=== PATIENT | female | born 1965 | race Caucasian/White ===

== ENCOUNTER → 2017-04-08 | Outpatient (CLI) | payer BC ==
[~2017-04-08] MED LIST: ANAS1TAB19 PO; CHOL1000 PO; LEVO112T4 PO; ONDA8TAB6 PO; calcium PO
[2017-04-08 10:39] VITALS: BP 115/74; PULSE 60; TEMP 36.7; O2SAT 100
--- NOTE | 2017-04-08 12:50 | Radiation Oncology Follow-Up ---
Radiation Oncology Follow-Up Date of Visit Apr 08, 2017. Reason For Visit One-month follow-up and cancer survivorship care plan Radiation Completion Date 03/11/17 Diagnosis (1) Cancer of central portion of right female breast Status: Acute Onset Date: 06/08/2016 Histology Subtype: invasive mammary Stage: ll (B) Permanent Comment: Self detected right breast mass Status post ultrasound-guided biopsy 06/08/2016 Invasive mammary carcinoma lobular features, axillary biopsy positive for carcinoma Estrogen receptor positive, progesterone receptor positive, HER-2/precious negative Clinical stage cT3 cN3M0 Neoadjuvant systemic chemotherapy completed 10/26/2016 Status post right modified radical mastectomy with axillary dissection and left prophylactic mastectomy 11/25/2016 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 She received 6240 cGy. Conventional treatment given to the chest wall, supraclavicular area and axilla. Last Edited By: Charo Patiño on Mar 22, 2017 07:56 History of Present Illness Ms. Cowan is without a family history of breast cancer. The patient discovered a mass in the right breast above the nipple which she first noticed towards the end of April. She was seen by her primary care physician and underwent bilateral diagnostic mammograms on 05/27/2016. This study identified asymmetry in the right breast in the retroareolar area and some asymmetry in the left breast. The asymmetry in the left breast was stable compared to prior studies in 2013. On ultrasound the patient was noted to have 3 masses in the right breast. The first mass corresponded to the palpable abnormality and measured 2.7 x 1.3 x 3.2 cm. This was located at the 12 o'clock position 2 cm the nipple. A retroareolar nodule was noted measuring 0.7 x 1.3 x 0.6 cm and a second hike hypoechoic nodule measuring 0.6 x 0.2 x 0.7 cm at the 11 o'clock position 6 cm from the nipple. In the right axilla and abnormal and enlarged lymph node was noted measuring 2.4 x 1.9 x 2.9 cm. Recommended biopsy of the 2 abnormal areas in the right breast and lymph node was made. On 06/08/2016 the patient underwent biopsies of the 2 abnormal areas in the breast and the lymph node with placement of a clip. The biopsy from the right breast retroareolar mass revealed an invasive mammary carcinoma with lobular features, [place] grade 2 of 3 with suspicion of angiolymphatic invasion. The biopsy of the right breast at the 12 o'clock position 2 cm the nipple revealed an invasive mammary carcinoma of the special type, with lobular features and Rajani grade 3 of 3. There was evidence of angioedema lymphatic invasion present. The biopsy of the right axillary lymph node revealed metastatic carcinoma involving the entire lymph node. Estrogen receptors were strongly positive, progesterone receptors were strongly positive and HER-2/precious oncogene expression was negative and confirmed negative by FISH analysis. Clinical stage was cT2 cN1a, Mx stage IIB. Patient was seen by her medical oncologist Dr. Bruce who ordered a staging PET/CT scan on 06/22/2016. This showed punctate calcifications in the right breast with multiple enlarged right axillary lymph nodes. The largest measured 1.9 cm. There was also an enlarged right retropectoral lymph node measuring 1.4 cm. There was a questionable abnormality in the right lung base/hepatic dome of uncertain significance. Patient therefore underwent CT scans of the chest abdomen and pelvis. This revealed known cancer of the right breast and axillary lymph nodes as well as a suspicious level III lymph node. These showed no evidence of metastatic disease. On 07/08/2016 patient underwent bilateral breast MRIs. This showed a 6.5 cm carcinoma the right breast which appeared to be contiguous rather than 2 separate areas as well as initially diagnosed on ultrasound. The exam again showed abnormal appearing lymph nodes in the right axilla including a level III lymph node that was suspicious for malignancy. The internal mammary nodes were felt to be within normal limits and the left breast and axilla were unremarkable. Dr. Bruce recommended consideration of neoadjuvant systemic chemotherapy. The patient agreed. This consisted of 4 cycles of ddAC followed by 4 cycles of ddTaxol. She completed systemic chemotherapy on 10/26/2016. She underwent a CT scan of the chest on for a persistent cough. This showed no evidence of metastatic disease. She stated that she tolerated the chemotherapy well. She had an obvious clinical response. Patient underwent a restaging procedure with a PET/CT scan on 11/01/2016. This showed the FDG avid uptake abnormalities that were seen in the right breast on the prior PET/CT scan resolved. The previously seen enlarged right axillary and right subpectoral lymph nodes also return to normal in size with interval resolution of the previously seen FDG hypermetabolism. On 11/03/2016 patient underwent bilateral breast MRIs with without contrast. This showed interval regression of the previously noted suspicious anterior masslike area in the upper outer aspect of the right breast consistent with response to therapy. There was also interval regression of the previously noted right axillary adenopathy with the upper normal size right axillary lymph node remaining without significant increased metabolic activity. No new areas of adenopathy were appreciated. The left breast and axilla were unremarkable. A discussion of possible breast reconstruction was had with the patient. She declined and was therefore scheduled to proceed with bilateral mastectomies along with surgical removal of the ovaries and fallopian tubes. One ovary contained evidence of a high-grade serous carcinoma present in a 1 cm cyst. Only one ovary was involved and histologically this tissue was different from that of the primary breast carcinoma. The left mastectomy breast tissue was unremarkable with no evidence of in situ or invasive carcinoma. The right breast mastectomy tissue revealed multifocal invasive carcinoma measuring 3.0 cm and 1.1 cm. The margins were uninvolved by invasive carcinoma. The distance from the closest margin was 4.5 cm from the deep margin. A total of 10 lymph nodes were excised and evaluated. One lymph node had a macro metastasis measuring 1.2 cm without extranodal extension. The remainder of the nodes were negative. There was no lymphovascular invasion identified. The final AJCC pathologic staging was therefore ypT2 ypN1a , ER positive, ID positive and HER-2/precious negative. Patient has noted a small seroma in the lateral portion of the mastectomy incision. She has had 2 episodes of fluid removed. The first time 10 mL of fluid was removed and the second time 8 mL of fluid was removed. The patient is scheduled to see Dr. Bone for a hysterectomy and azucena evaluation following the diagnosis of the high-grade serous carcinoma of the ovary. The question of additional therapy including possible chemotherapy will be made following pathologic evaluation of the additional tissue removed. We were asked to see the patient to review with her the role of adjuvant radiation. She completed her radiation therapy 03/11/2017. She received 6240 cGy. Conventional treatment was given to the chest wall, supraclavicular area and axilla Interim History She's been doing well over the past month. She did have skin irritation at the end of treatment. This is steadily improved. She continues to have some dark discoloration of the skin. She denies any discomfort of the chest wall. She has no masses or tenderness no axillary adenopathy. She is not experiencing any swelling of her arm. She is being followed by medical oncology and completing chemotherapy for the high-grade serous carcinoma of the ovary. She has had her first cycle. The next cycle will be April 18. She did have flulike symptoms. She had fever or chills. It is very likely that these were due to the flow and not the chemotherapy. Her was also ill. She is on Arimidex. She denies side effects. She is not having any problems with hot flashes. Allergies Coded Allergies: No Known Allergies (Verified Allergy, Unknown, 04/26/02) Uncoded Allergies: N (Allergy, Unknown, 04/26/02) NFA (Allergy, Unknown, 04/26/02) NKDA (Allergy, Unknown, 04/26/02) NO (Allergy, Unknown, 04/26/02) UNKNOWN (Allergy, Unknown, 04/26/02) Home Medications Scheduled Anastrozole (Arimidex), 1 TAB PO DAILY Cholecalciferol (Vitamin D3), 1 TAB PO DAILY Levothyroxine Sodium (Levothyroxine Sodium), 1 TAB PO DAILY [calcium], 1,200 MG PO DAILY Scheduled PRN Ondansetron Hcl (Zofran), 8 MG PO Q6 PRN for Nausea Review of Systems Gastrointestinal: Symptoms: WNL GI Comments: Nausea assoc. w/chemo;has antiemetics to use; Oral: Symptoms: No Problems Respiratory: Symptoms: WNL Urinary: Symptoms: WNL Skin: Symptoms: Dry Desquamation Other Skin Symptoms: Hyperpigmentation dry desq over right chest- almost resolved; Breast: Right Upper Arm Measurement: 31.8 Right Mid Arm Measurement: 26.3 Right Wrist Measurement: 17.0 Left Upper Arm Measurement: 30.0 Left Mid Arm Measurement: 25.8 Left Wrist Measurement: 16.8 Arm Dominence: Right Physical Exam Vital Signs Date Time Temp Pulse Resp B/P (MAP) Pulse Ox O2 Delivery O2 Flow Rate FiO2 04/08/17 10:39 36.7 60 24 115/74 100 Fatigue: None General Appearance: no apparent distress Eyes: normal inspection, EOMI ENT: normal ENT inspection, hearing grossly normal Neck: no adenopathy, thyroid normal Respiratory/Chest: lungs clear, no respiratory distress, no accessory muscle use Breast: Breast examination reveals status post bilateral mastectomies. On the right there is resolving hyperpigmentation. There are no masses or tenderness and no axillary adenopathy. On the left there are no masses or tenderness and no axillary adenopathy. Cardiovascular: regular rate, rhythm, no gallop, no murmur Abdomen: non tender, soft Extremities: no pedal edema Neurologic/Psychiatric: no motor/sensory deficits, alert, normal mood/affect Skin: warm/dry Pain Management Patient Reports Pain: No Pain Management Plan She denies pain and therefore requires no pain management. Laboratory Laboratory Results: not applicable Pathology Pathology Results: not applicable Imaging Imaging Studies: not applicable Assessment & Plan Plan: Continue regular follow-up with medical oncology, gynecologic oncology, her breast surgeon, and her primary care physician. She'll continue her chemotherapy. We did discuss that is hopeful that she'll not have side effects with her second cycle and that the symptoms she had were related to flow. Today we completed a cancer survivorship care plan. A copy the document was given to the patient. She was given a survivorship booklet. She continues on her Arimidex. We asked her to return to our office in 6 months. She may call if she has any questions or concerns in the interim. Recheck scanning per oncology. Total Time In Follow-Up I spent 20 minutes speaking to the patient and performing examination. I spent 20 minutes reviewing information, preparing the survivorship document, and completing this note. Copy To Ariana Green M.D.; La Bruce M.D.; Sha Bone M.D.; Piero Pak PA-C Problem Qualifiers (1) Cancer of central portion of right female breast: Estrogen receptor status: positive Qualified Codes: C50.111 - Malignant neoplasm of central portion of right female breast; Z17.0 - Estrogen receptor positive status [ER+]
== END | disposition home or self-care (01) ==
LOC: C.ONC 10:37
PROVIDERS: ATTEND Physician Assistant Medical
DX: Z08 Encounter for follow-up examination after completed treatment for malignant neoplasm (principal); Z92.3 Personal history of irradiation; Z85.3 Personal history of malignant neoplasm of breast

== ENCOUNTER → 2017-10-06 | Outpatient (CLI) | payer BC ==
[~2017-10-06] MED LIST changes: -ANAS1TAB19 PO; +ANAS1TAB59 PO; +FMR25 PO; +ONDA-170 PO; -ONDA8TAB6 PO
[2017-10-06 14:11] VITALS: BP 112/69; PULSE 70; TEMP 36.4; O2SAT 99
--- NOTE | 2017-10-06 15:39 | Radiation Oncology Follow-Up ---
Radiation Oncology Follow-Up Date of Visit Oct 06, 2017. Reason For Visit Six-month follow-up Radiation Completion Date 04/08/17 Diagnosis (1) Cancer of central portion of right female breast Status: Resolved Onset Date: 06/08/2016 Histology Subtype: Invasive mammary Stage: ll (B) Permanent Comment: Self detected right breast mass Status post ultrasound-guided biopsy 06/08/2016 Invasive mammary carcinoma lobular features, axillary biopsy positive for carcinoma Estrogen receptor positive, progesterone receptor positive, HER-2/precious negative Clinical stage cT3 cN3M0 Neoadjuvant systemic chemotherapy completed 10/26/2016 Status post right modified radical mastectomy with axillary dissection and left prophylactic mastectomy 11/25/2016 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 She received 6240 cGy. Conventional treatment given to the chest wall, supraclavicular area and axilla. Last Edited By: Charo Patiño on Mar 22, 2017 07:56 History of Present Illness Ms. Cowan is without a family history of breast cancer. The patient discovered a mass in the right breast above the nipple which she first noticed towards the end of April. She was seen by her primary care physician and underwent bilateral diagnostic mammograms on 05/27/2016. This study identified asymmetry in the right breast in the retroareolar area and some asymmetry in the left breast. The asymmetry in the left breast was stable compared to prior studies in 2013. On ultrasound the patient was noted to have 3 masses in the right breast. The first mass corresponded to the palpable abnormality and measured 2.7 x 1.3 x 3.2 cm. This was located at the 12 o'clock position 2 cm the nipple. A retroareolar nodule was noted measuring 0.7 x 1.3 x 0.6 cm and a second hike hypoechoic nodule measuring 0.6 x 0.2 x 0.7 cm at the 11 o'clock position 6 cm from the nipple. In the right axilla and abnormal and enlarged lymph node was noted measuring 2.4 x 1.9 x 2.9 cm. Recommended biopsy of the 2 abnormal areas in the right breast and lymph node was made. On 06/08/2016 the patient underwent biopsies of the 2 abnormal areas in the breast and the lymph node with placement of a clip. The biopsy from the right breast retroareolar mass revealed an invasive mammary carcinoma with lobular features, [place] grade 2 of 3 with suspicion of angiolymphatic invasion. The biopsy of the right breast at the 12 o'clock position 2 cm the nipple revealed an invasive mammary carcinoma of the special type, with lobular features and Rajani grade 3 of 3. There was evidence of angioedema lymphatic invasion present. The biopsy of the right axillary lymph node revealed metastatic carcinoma involving the entire lymph node. Estrogen receptors were strongly positive, progesterone receptors were strongly positive and HER-2/precious oncogene expression was negative and confirmed negative by FISH analysis. Clinical stage was cT2 cN1a, Mx stage IIB. Patient was seen by her medical oncologist Dr. Bruce who ordered a staging PET/CT scan on 06/22/2016. This showed punctate calcifications in the right breast with multiple enlarged right axillary lymph nodes. The largest measured 1.9 cm. There was also an enlarged right retropectoral lymph node measuring 1.4 cm. There was a questionable abnormality in the right lung base/hepatic dome of uncertain significance. Patient therefore underwent CT scans of the chest abdomen and pelvis. This revealed known cancer of the right breast and axillary lymph nodes as well as a suspicious level III lymph node. These showed no evidence of metastatic disease. On 07/08/2016 patient underwent bilateral breast MRIs. This showed a 6.5 cm carcinoma the right breast which appeared to be contiguous rather than 2 separate areas as well as initially diagnosed on ultrasound. The exam again showed abnormal appearing lymph nodes in the right axilla including a level III lymph node that was suspicious for malignancy. The internal mammary nodes were felt to be within normal limits and the left breast and axilla were unremarkable. Dr. Bruce recommended consideration of neoadjuvant systemic chemotherapy. The patient agreed. This consisted of 4 cycles of ddAC followed by 4 cycles of ddTaxol. She completed systemic chemotherapy on 10/26/2016. She underwent a CT scan of the chest on for a persistent cough. This showed no evidence of metastatic disease. She stated that she tolerated the chemotherapy well. She had an obvious clinical response. Patient underwent a restaging procedure with a PET/CT scan on 11/01/2016. This showed the FDG avid uptake abnormalities that were seen in the right breast on the prior PET/CT scan resolved. The previously seen enlarged right axillary and right subpectoral lymph nodes also return to normal in size with interval resolution of the previously seen FDG hypermetabolism. On 11/03/2016 patient underwent bilateral breast MRIs with without contrast. This showed interval regression of the previously noted suspicious anterior masslike area in the upper outer aspect of the right breast consistent with response to therapy. There was also interval regression of the previously noted right axillary adenopathy with the upper normal size right axillary lymph node remaining without significant increased metabolic activity. No new areas of adenopathy were appreciated. The left breast and axilla were unremarkable. A discussion of possible breast reconstruction was had with the patient. She declined and was therefore scheduled to proceed with bilateral mastectomies along with surgical removal of the ovaries and fallopian tubes. One ovary contained evidence of a high-grade serous carcinoma present in a 1 cm cyst. Only one ovary was involved and histologically this tissue was different from that of the primary breast carcinoma. The left mastectomy breast tissue was unremarkable with no evidence of in situ or invasive carcinoma. The right breast mastectomy tissue revealed multifocal invasive carcinoma measuring 3.0 cm and 1.1 cm. The margins were uninvolved by invasive carcinoma. The distance from the closest margin was 4.5 cm from the deep margin. A total of 10 lymph nodes were excised and evaluated. One lymph node had a macro metastasis measuring 1.2 cm without extranodal extension. The remainder of the nodes were negative. There was no lymphovascular invasion identified. The final AJCC pathologic staging was therefore ypT2 ypN1a , ER positive, CT positive and HER-2/precious negative. Patient has noted a small seroma in the lateral portion of the mastectomy incision. She has had 2 episodes of fluid removed. The first time 10 mL of fluid was removed and the second time 8 mL of fluid was removed. The patient is scheduled to see Dr. Bone for a hysterectomy and azucena evaluation following the diagnosis of the high-grade serous carcinoma of the ovary. The question of additional therapy including possible chemotherapy will be made following pathologic evaluation of the additional tissue removed. We were asked to see the patient to review with her the role of adjuvant radiation. She completed her radiation therapy 03/11/2017. She received 6240 cGy. Conventional treatment was given to the chest wall, supraclavicular area and axilla. Interim History She has been doing well over the past 6 months. She is noticed no changes to the chest wall. There have been no masses or tenderness and no change of the axilla. She has had no swelling of her arm. She was referred to a genetic counselor and underwent genetic testing. She stated that she was found to be BRCA positive. 1 of her daughters and 1 of her sisters have been tested and were found to be positive. She still has a sister and 1 daughter who are waiting for the results of their studies. She was able to have her port removed in July. Allergies Coded Allergies: No Known Allergies (Verified Allergy, Unknown, 04/26/02) Uncoded Allergies: N (Allergy, Unknown, 04/26/02) NFA (Allergy, Unknown, 04/26/02) NKDA (Allergy, Unknown, 04/26/02) NO (Allergy, Unknown, 04/26/02) UNKNOWN (Allergy, Unknown, 04/26/02) Home Medications Scheduled Cholecalciferol (Vitamin D3), 1 TAB PO DAILY Letrozole (Femara), 1 TAB PO DAILY Levothyroxine Sodium (Levothyroxine Sodium), 1 TAB PO DAILY [calcium], 1,200 MG PO DAILY Review of Systems Gastrointestinal: Symptoms: WNL Oral: Symptoms: No Problems Respiratory: Symptoms: WNL Urinary: Symptoms: WNL Skin: Symptoms: No Problems Breast: Right Upper Arm Measurement: 30.0 Right Mid Arm Measurement: 25.5 Right Wrist Measurement: 17.0 Left Upper Arm Measurement: 30.5 Left Mid Arm Measurement: 25.0 Left Wrist Measurement: 17.0 Arm Dominence: Right Physical Exam Vital Signs Date Time Temp Pulse Resp B/P (MAP) Pulse Ox O2 Delivery O2 Flow Rate FiO2 10/06/17 14:11 36.4 70 18 112/69 99 Fatigue: None General Appearance: no apparent distress Eyes: normal inspection, EOMI ENT: normal ENT inspection, hearing grossly normal Neck: no adenopathy, thyroid normal Respiratory/Chest: lungs clear, no respiratory distress, no accessory muscle use Breast: Examination of the bilateral chest pierce reveal postmastectomy. There are no masses or tenderness and no axillary adenopathy. There is mild hyperpigmentation. Using the Cable score cosmesis she has a fair outcome. Cardiovascular: regular rate, rhythm, no gallop, no murmur Extremities: no pedal edema Neurologic/Psychiatric: no motor/sensory deficits, alert, normal mood/affect Skin: warm/dry Pain Management Patient Reports Pain: No Pain Location: None Patient Preferred Pain Scale: 0 - 10 Initial Pain Intensity: 0.0 Pain Management Plan She denies pain therefore requires no pain management. Laboratory Laboratory Results: not applicable Pathology Pathology Results: not applicable Imaging Imaging Studies: not applicable Assessment & Plan Plan: Continue regular follow-up with medical oncology. She will be seeing Dr. Bruce October 17. I reviewed with her that it will be Dr. Bruce's decision in regards to further scanning and laboratory studies. She will continue follow- up with the breast surgeon and her primary care provider. She was encouraged to continue follow-up also with Dr. Bone. We discussed prevention of lymphedema. I reviewed with her avoidance of prolonged heavy work i.e. raking of leaves and shoveling snow. We also discussed prevention when traveling. Some patients do have a sleeve made to wear when they are traveling long distance. She recently returned from [place] she had no difficulty. She stated that she would not be planning on going on any long distance traveling. She was not interested at this time referral to the lymphedema clinic. We discussed the outcome of her genetic testing. She is most concerned about her daughter who has not yet had mammography. I have asked her to review with a genetic counselor and perhaps recommendation could be sent to the primary care physician that she would have sooner mammography due to the outcome of her testing. We asked her to return to our office in 1 year. She may call if she has any questions or concerns in the interim. Total Time In Follow-Up I spent 20 minutes speaking to the patient in performing examination. I spent 15 minutes reviewing information and completing this note. Copy To Ariana Green M.D.; La Bruce M.D.; [place] Marie M.D.; Sha Bone M.D. Problem Qualifiers (1) Cancer of central portion of right female breast: Estrogen receptor status: positive Qualified Codes: C50.111 - Malignant neoplasm of central portion of right female breast; Z17.0 - Estrogen receptor positive status [ER+]
== END | disposition home or self-care (01) ==
LOC: C.ONC 13:56
PROVIDERS: ATTEND Physician Assistant Medical
DX: Z08 Encounter for follow-up examination after completed treatment for malignant neoplasm (principal); Z92.3 Personal history of irradiation; Z85.3 Personal history of malignant neoplasm of breast

== ENCOUNTER 2021-06-30 08:03 | Inpatient (IN) ==
[2021-06-30] MEDS ORDERED: ACETAMINOPHEN 500 MG TAB PO STA (08:22)
[2021-06-30] MEDS ORDERED: CEFEPIME 2,000 MG/20 ML VIAL IV STA (08:22)
[2021-06-30] MEDS ORDERED: SODIUM CHLORIDE 0.9% 1000ML 1,000 ML IV SCH (08:30)
[2021-06-30] MEDS ORDERED: SODIUM CHLORIDE 0.9% 250 ML IV PRN ×2 (08:37→20:52)
--- NOTE | 2021-06-30 08:48 | Emergency Department Note ---
Impression & Plan Sepsis, Elevated troponin, Pneumonia, Anemia, Neutropenia ED Provider Note NAME: JET MORAES AGE: 56 SEX: F : 1965 ARRIVES VIA: Walk-In INFORMANT: [Patient] ED PROVIDER(S): [Festus Wood MD] CHIEF COMPLAINT: Fever, chest pain HISTORY OF PRESENT ILLNESS: The patient is a 56-year-old female who presents to the ER with some chest discomfort that has been sharp in nature. The pain has been present for 9 hours. Her arms feel achy. She had a low-grade fever and some nausea with an increased cough. No urinary complaints, no vomiting no diarrhea. 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 Her last chemotherapy was a month ago. The [facility] for a red blood cell transfusion as her hemoglobin was around 6. The packed red blood cells were not given. Of note, on the laboratory testing done a few days ago, the patient was quite n eutropenic. The patient has not had any sick contacts. She is not vaccinated for COVID-19 or influenza. REVIEW OF SYSTEMS: See HPI for pertinent positives and negatives. A total of ten systems were reviewed and were otherwise negative. PMHx/PSHx: See Below SOCIAL HISTORY: See Below. PHYSICAL EXAM: GENERAL: Patient is in no acute distress. HEENT: No acute trauma, normocephalic atraumatic, mucous membranes moist, no nasal congestion, no scleral icterus. NECK: No stridor, no adenopathy, no meningismus, trachea is midline. LUNGS: Crackles at both bases, mostly on the left. No wheezing, no respiratory distress. HEART: Mildly tachycardic, regular rhythm, no obvious murmur. ABDOMEN: Soft, nontender, bowel sounds positive, no hernias, no peritonitis. EXTREMITIES: No cyanosis or edema, full range of motion of all the joints without pain or difficulty, no signs for acute trauma. NEUROLOGIC: Oriented x 3, no acute motor or sensory deficits, no focal weakness. SKIN: No rash, no jaundice, no diaphoresis. DIFFERENTIAL DIAGNOSIS: Sepsis, neutropenia, UTI, COVID-19, influenza, pneumonia, metabolic abnormality, electrolyte abnormalities, cardiac sources, cellulitis, bacteremia, intracerebral event, toxicologic etiology, neurologic event, as well as other pathologies. EMERGENCY DEPARTMENT COURSE/PROCEDURES: ECG: Indication was chest pain. The ECG shows a sinus tachycardia with a rate of 110. No PVCs, no ST elevation. The QTC was 430. Continuous Cardiac Monitoring: An order was placed for continuous cardiac monitoring. The monitor shows a rate of 112 with sinus tachycardia. Critical Care Note: I have personally spent 48 minutes of critical care time in the direct management of this patient. This includes bedside care, interpretation of diagnostic studies, and testing, discussion with consultants, patient, and family members, and other required patient management activities. This 48 minutes is in excess of all separately billable procedures. MEDICAL DECISION MAKING: Patient is neutropenic with a total white count of 0.30. Hemoglobin was quite low at 5.6. Platelet count was low at 116. INR was 1.3, PTTR was greater than 5.1. Sodium was slightly low at 132. No renal failure. Lactic acid level was not elevated making severe sepsis less likely. There were a few subtle liver enzyme elevations. Procalcitonin level was elevated. ECG showed a sinus tachycardia, no obvious acute ischemia. Cardiac enzyme testing does show a slight troponin elevation which may be from demand ischemia. Chest x-ray shows what I believed to be a potential left lower lung pneumonia. Urinalysis does not show infection. Bio fire testing was completely negative. I was able to have the patient's 2 units of packed red blood cells moved from the [facility] to the ED. She was ordered for 2 units to be transfused. She received 1 L of IV saline. She was given oral Tylenol and oral Motrin. She was given IV Benadryl. Patient received IV cefepime. The patient's heart rate has improved. She remained slightly hypotensive. She does not appear toxic. She is not hypoxic. The patient is neutropenic and meets criteria for sepsis. I suspect she has pneumonia. She requires a hospital stay and further IV antibiotic therapy. I did speak with her digital imager. I spoke with case management. I talked to the patient about all her findings. The on-call hospitalist was consulted. Past Med/Surg History Medical History BRCA gene mutation positive Cancer of central portion of right female breast (06/08/16) Hx of breast cancer hx 2017 s/p b/l masectomy, XRT and chemo Hx of ovarian cancer [facility] 01/2017 Hypothyroidism Surgical History History of bilateral mastectomy History of cataract extraction History of total abdominal hysterectomy and bilateral salpingo-oophorectomy Hx of colonoscopy with polypectomy last c scope 05/2021 WNL Family History Other Breast cancer Diabetes Social History Smoking Status: Never smoker Hx Alcohol Use: No Hx Substance Use: No Preferred Language: Setswana Beliefs That Will Affect Care: None marital status: Current Living Situation: Spouse Feels Safe at Home: Yes Allergies Allergies Allergy/AdvReac Type Severity Reaction Status Date / Time No Known Allergies Allergy Verified 06/30/21 09:33 Home Meds Home Medications Medication Instructions Recorded Confirmed azacitidine 100 mg solution for 150 mg SUBCUT UD 06/30/21 06/30/21 injection calcium carbonate 600 mg-vitamin 1 tab PO QAM 06/30/21 06/30/21 D3 5 mcg (200 unit) tablet (Calcium 600 + D(3)) cholecalciferol (vitamin D3) 125 125 mcg PO QAM 06/30/21 06/30/21 mcg (5,000 unit) tablet (Vitamin D3) exemestane 25 mg tablet 25 mg PO QAM 06/30/21 06/30/21 levothyroxine 112 mcg tablet 112 mcg PO DAILYBB 06/30/21 06/30/21 ondansetron HCl 8 mg tablet 8 mg PO Q6H PRN 06/30/21 06/30/21 prochlorperazine maleate 10 mg 10 mg PO Q6H PRN 06/30/21 06/30/21 tablet zinc 50 mg tablet 0 mg PO QAM 06/30/21 06/30/21 Results & Data (ED) Vital Signs Vital Signs - 24 hr 06/30/21 08:11 06/30/21 08:30 06/30/21 09:00 Temperature 38.7 C H Temperature Source Oral Pulse Rate 112 H Pulse Rate [Left Finger] Pulse Rhythm Pulse Rhythm [Left Finger] Pulse Strength Pulse Strength [Left Finger] Respiratory Rate 18 16 Respiratory Effort / Characteristics Non-Labored Spontaneous Accessory Muscle Use Labored Respiratory Depth Normal Normal Respiratory Pattern Blood Pressure 106/64 Blood Pressure [Left Arm] Blood Pressure Mean 78 Blood Pressure Mean [Left Arm] Blood Pressure Position Blood Pressure Position [Left Arm] Pulse Oximetry 95 94 Oxygen Delivery Method Room Air Room Air Room Air Oxygen Flow Rate 95 Sepsis Recent Fever Within 48 Hours No Sepsis New/Unexplained Change in Mental Status No Sepsis Action Taken by Nursing No Action Required Oxygen Flow Rate - Titration Pulse Oximetry Post Tiitration 06/30/21 09:04 06/30/21 09:05 06/30/21 09:20 Temperature 37 C 37.3 C Temperature Source Oral Oral Pulse Rate 108 H 100 H Pulse Rate [Left Finger] 103 H Pulse Rhythm Regular Pulse Rhythm [Left Finger] Regular Pulse Strength Normal Pulse Strength [Left Finger] Normal Respiratory Rate 30 H 26 H Respiratory Effort / Characteristics Non-Labored Spontaneous Respiratory Depth Respiratory Pattern Regular Blood Pressure 106/62 93/60 L Blood Pressure [Left Arm] 93/60 L Blood Pressure Mean 76 71 Blood Pressure Mean [Left Arm] 71 Blood Pressure Position Sitting Sitting Blood Pressure Position [Left Arm] Sitting Pulse Oximetry 94 86 L 97 Oxygen Delivery Method Room Air Nasal Cannula Oxygen Flow Rate 2 Sepsis Recent Fever Within 48 Hours Sepsis New/Unexplained Change in Mental Status Sepsis Action Taken by Nursing Oxygen Flow Rate - Titration 2 Pulse Oximetry Post Tiitration 98 06/30/21 09:35 06/30/21 09:51 06/30/21 11:00 Temperature 37.4 C 38.0 C H Temperature Source Oral Oral Pulse Rate 98 H Pulse Rate [Left Finger] 96 H 88 Pulse Rhythm Pulse Rhythm [Left Finger] Regular Regular Pulse Strength Pulse Strength [Left Finger] Normal Respiratory Rate 26 H 27 H 16 Respiratory Effort / Characteristics Non-Labored Spontaneous Non-Labored Respiratory Depth Normal Normal Respiratory Pattern Regular Blood Pressure 85/49 L Blood Pressure [Left Arm] 91/50 L 90/43 L Blood Pressure Mean 61 Blood Pressure Mean [Left Arm] 63 58 Blood Pressure Position Sitting Blood Pressure Position [Left Arm] Sitting Pulse Oximetry 96 99 99 Oxygen Delivery Method Nasal Cannula Room Air Oxygen Flow Rate 2 2 Sepsis Recent Fever Within 48 Hours Sepsis New/Unexplained Change in Mental Status Sepsis Action Taken by Nursing Oxygen Flow Rate - Titration Pulse Oximetry Post Tiitration Home Medications Current Medication List: was personally reviewed by me Laboratory Data Attestation: I reviewed the patient's lab results. Result diagrams: 06/30/21 08:33 06/30/21 08:33 Lab Results 06/30/21 06/30/21 06/30/21 Range/Units 08:33 08:33 08:33 WBC 0.30 L* (4.8-10.8) K/uL RBC 1.76 L (4.2-5.4) M/uL Hgb 5.6 L* (12.0-16.0) g/dL Hct 16.7 L* (37-47) % MCV 94.9 (80-100) fL MCH 31.8 (25-34) pg MCHC 33.5 (32-36) g/dL RDW Std Deviation 72.9 H (36.4-46.3) fL RDW Coeff of Karey 23.4 H (11.5-14.5) % Plt Count 116 L (130-400) K/uL MPV ELEMENTARY SUPERVISOR Immature Gran % (Auto) Cancelled Neut % (Auto) Cancelled Lymph % (Auto) Cancelled [place] % (Auto) Cancelled Eos % (Auto) Cancelled Baso % (Auto) Cancelled Neut # (Auto) Cancelled Lymph # (Auto) Cancelled [place] # (Auto) Cancelled Eos # (Auto) Cancelled Baso # (Auto) Cancelled Immature Gran # (Auto) Cancelled Absolute Nucleated RBC ELEMENTARY SUPERVISOR Nucleated RBC % (auto) ELEMENTARY SUPERVISOR Neutrophils % (Manual) Cancelled Band Neutrophils % Cancelled Lymphocytes % (Manual) Cancelled Prolymphocyte % Cancelled Reactive Lymphs % (Man) Cancelled Monocytes % (Manual) Cancelled Eosinophils % (Manual) Cancelled Basophils % (Manual) Cancelled Metamyelocytes % (Man) Cancelled Myelocytes % (Man) Cancelled Promyelocytes % (Man) Cancelled Blast Cells % (Manual) Cancelled Plasma Cell % (Manual) Cancelled Other Cells % Cancelled Nucleated RBC % Cancelled Neutrophils # (Manual) Cancelled Band Neutrophils # Cancelled Total Absolute Neuts Cancelled Lymphocytes # (Manual) Cancelled Prolymphocyte # Cancelled Reactive Lymphs # Cancelled Total Abs Lymphocytes Cancelled Monocytes # (Manual) Cancelled Eosinophils # (Manual) Cancelled Basophils # (Manual) Cancelled Metamyelocytes # (Man) Cancelled Myelocytes # (Manual) Cancelled Promyelocytes # (Man) Cancelled Blast Cells # (Man) Cancelled Plasma Cell # (Manual) Cancelled Other Cells # Cancelled Nucleated RBCs # (Man) Cancelled Hypersegmented Neuts Cancelled Hyposegmented Neuts Cancelled Hypogranular Neuts Cancelled Large Granular Lymphs Cancelled # Lrg Granular Lymphs Cancelled Hairy Cells Cancelled Smudge Cells Cancelled Toxic Granulation Cancelled Toxic Vacuolation Cancelled Dohle Bodies Cancelled Tom Rods Cancelled Platelet Estimate ELEMENTARY SUPERVISOR Hypogranular Platelets Cancelled Clumped Platelets Cancelled Giant Platelets Cancelled Platelet Satelliting Cancelled RBC Morphology Cancelled Polychromasia Cancelled Hypochromasia Cancelled Poikilocytosis Cancelled Basophilic Stippling Cancelled Anisocytosis Cancelled Microcytosis Cancelled Macrocytosis Cancelled Spherocytes Cancelled Pappenheimer Bodies Cancelled Sickle Cells Cancelled Target Cells Cancelled Tear Drop Cells Cancelled Ovalocytes Cancelled Stomatocytes Cancelled [place] Bodies Cancelled Echinocytes Cancelled Acanthocytes (Spur) Cancelled Rouleaux Cancelled RBC Agglutinates Cancelled Schistocytes Cancelled RBC Morph Comment Cancelled Sezary Cell Cancelled PT 13.5 H (9.0-12.0) Seconds INR 1.3 H (0.9-1.1) APTT > 139.0 H* (21.0-31.0) Seconds PTT Ratio > 5.1 Sodium (136-145) mmol/L Potassium (3.5-5.1) mmol/L Chloride (98-107) mmol/L Carbon Dioxide (21-32) mmol/L Anion Gap (3-11) BUN (6-23) mg/dl Creatinine (0.6-1.2) mg/dl Est Cr Clr Drug Dosing ml/min Est GFR ( Amer) ml/min Est GFR (Non-Af Amer) ml/min BUN/Creatinine Ratio (10-20) Glucose (70-99(Fasting)) mg/dl Lactate (0.4-2.0) mmol/L Calcium (8.5-10.1) mg/dl Magnesium (1.7-2.4) mg/dl Total Bilirubin (0.2-1.0) mg/dl AST (13-39) U/L ALT (7-52) U/L Alkaline Phosphatase (34-104) U/L Troponin I High Sens 51.3 H* (0-14) pg/ml Total Protein (6.0-8.3) gm/dl Albumin (3.4-5.0) gm/dl Globulin (2.5-4.0) gm/dl Albumin/Globulin Ratio (0.9-2) Procalcitonin (0-0.5) ng/ml Urine Color Urine Appearance (Clear) Urine pH (4.5-7.5) Ur Specific [place] (1.000-1.030) Urine Protein (Negative) Urine Glucose (UA) (Negative) Urine Ketones (Negative) Urine Blood (Negative) Urine Nitrite (Negative) Urine Bilirubin (Negative) Urine Urobilinogen (Negative) Ur Leukocyte Esterase (Negative) Urine WBC (Auto) (0-5) /hpf Urine RBC (Auto) (0-4) /hpf U Hyaline Cast (Auto) (0-5) /lpf U Epithel Cells (Auto) (0-5) /lpf Urine Bacteria (Auto) (Negative) Ur Renal Epithelial Cell Urine Mucus (None Prsent) Adenovirus (PCR) (NotDetected) B. pertussis DNA (PCR) (NotDetected) B.parapertussis DNA PCR (NotDetected) C. pneumoniae DNA (PCR) (NotDetected) Coronavirus OC43 (PCR) (NotDetected) Coronavirus HKU1 (PCR) (NotDetected) Coronavirus 229E (PCR) (NotDetected) SARS-CoV-2 (PCR) (NotDetected) Coronavirus NL63 (PCR) (NotDetected) Human Metapneumovir PCR (NotDetected) Influenza Type A (PCR) (NotDetected) Influenza Type B (PCR) (NotDetected) M. pneumoniae (PCR) (NotDetected) Parainfluenza 1 (PCR) (NotDetected) Parainfluenza 2 (PCR) (NotDetected) Parainfluenza 3 (PCR) (NotDetected) Parainfluenza 4 (PCR) (NotDetected) RSV (PCR) (NotDetected) Entero/Rhino (PCR) (NotDetected) 06/30/21 06/30/21 06/30/21 Range/Units 08:33 08:33 08:50 WBC (4.8-10.8) K/uL RBC (4.2-5.4) M/uL Hgb (12.0-16.0) g/dL Hct (37-47) % MCV (80-100) fL MCH (25-34) pg MCHC (32-36) g/dL RDW Std Deviation (36.4-46.3) fL RDW Coeff of Karey (11.5-14.5) % Plt Count (130-400) K/uL MPV Immature Gran % (Auto) Neut % (Auto) Lymph % (Auto) [place] % (Auto) Eos % (Auto) Baso % (Auto) Neut # (Auto) Lymph # (Auto) [place] # (Auto) Eos # (Auto) Baso # (Auto) Immature Gran # (Auto) Absolute Nucleated RBC Nucleated RBC % (auto) Neutrophils % (Manual) Band Neutrophils % Lymphocytes % (Manual) Prolymphocyte % Reactive Lymphs % (Man) Monocytes % (Manual) Eosinophils % (Manual) Basophils % (Manual) Metamyelocytes % (Man) Myelocytes % (Man) Promyelocytes % (Man) Blast Cells % (Manual) Plasma Cell % (Manual) Other Cells % Nucleated RBC % Neutrophils # (Manual) Band Neutrophils # Total Absolute Neuts Lymphocytes # (Manual) Prolymphocyte # Reactive Lymphs # Total Abs Lymphocytes Monocytes # (Manual) Eosinophils # (Manual) Basophils # (Manual) Metamyelocytes # (Man) Myelocytes # (Manual) Promyelocytes # (Man) Blast Cells # (Man) Plasma Cell # (Manual) Other Cells # Nucleated RBCs # (Man) Hypersegmented Neuts Hyposegmented Neuts Hypogranular Neuts Large Granular Lymphs # Lrg Granular Lymphs Hairy Cells Smudge Cells Toxic Granulation Toxic Vacuolation Dohle Bodies Tom Rods Platelet Estimate Hypogranular Platelets Clumped Platelets Giant Platelets Platelet Satelliting RBC Morphology Polychromasia Hypochromasia Poikilocytosis Basophilic Stippling Anisocytosis Microcytosis Macrocytosis Spherocytes Pappenheimer Bodies Sickle Cells Target Cells Tear Drop Cells Ovalocytes Stomatocytes [place] Bodies Echinocytes Acanthocytes (Spur) Rouleaux RBC Agglutinates Schistocytes RBC Morph Comment Sezary Cell PT (9.0-12.0) Seconds INR (0.9-1.1) APTT (21.0-31.0) Seconds PTT Ratio Sodium 132 L (136-145) mmol/L Potassium 3.5 (3.5-5.1) mmol/L Chloride 100 (98-107) mmol/L Carbon Dioxide 24 (21-32) mmol/L Anion Gap 8 (3-11) BUN 15 (6-23) mg/dl Creatinine 0.85 (0.6-1.2) mg/dl Est Cr Clr Drug Dosing 79.4 ml/min Est GFR ( Amer) 89.4 ml/min Est GFR (Non-Af Amer) 77.1 ml/min BUN/Creatinine Ratio 17.6 (10-20) Glucose 132 H (70-99(Fasting)) mg/dl Lactate 0.6 (0.4-2.0) mmol/L Calcium 8.8 (8.5-10.1) mg/dl Magnesium 1.7 (1.7-2.4) mg/dl Total Bilirubin 1.2 H (0.2-1.0) mg/dl AST 10 L (13-39) U/L ALT 16 (7-52) U/L Alkaline Phosphatase 107 H (34-104) U/L Troponin I High Sens (0-14) pg/ml Total Protein 7.2 (6.0-8.3) gm/dl Albumin 3.7 (3.4-5.0) gm/dl Globulin 3.5 (2.5-4.0) gm/dl Albumin/Globulin Ratio 1.1 (0.9-2) Procalcitonin 1.08 H (0-0.5) ng/ml Urine Color Urine Appearance (Clear) Urine pH (4.5-7.5) Ur Specific [place] (1.000-1.030) Urine Protein (Negative) Urine Glucose (UA) (Negative) Urine Ketones (Negative) Urine Blood (Negative) Urine Nitrite (Negative) Urine Bilirubin (Negative) Urine Urobilinogen (Negative) Ur Leukocyte Esterase (Negative) Urine WBC (Auto) (0-5) /hpf Urine RBC (Auto) (0-4) /hpf U Hyaline Cast (Auto) (0-5) /lpf U Epithel Cells (Auto) (0-5) /lpf Urine Bacteria (Auto) (Negative) Ur Renal Epithelial Cell Urine Mucus (None Prsent) Adenovirus (PCR) (NotDetected) B. pertussis DNA (PCR) (NotDetected) B.parapertussis DNA PCR (NotDetected) C. pneumoniae DNA (PCR) (NotDetected) Coronavirus OC43 (PCR) (NotDetected) Coronavirus HKU1 (PCR) (NotDetected) Coronavirus 229E (PCR) (NotDetected) SARS-CoV-2 (PCR) (NotDetected) Coronavirus NL63 (PCR) (NotDetected) Human Metapneumovir PCR (NotDetected) Influenza Type A (PCR) (NotDetected) Influenza Type B (PCR) (NotDetected) M. pneumoniae (PCR) (NotDetected) Parainfluenza 1 (PCR) (NotDetected) Parainfluenza 2 (PCR) (NotDetected) Parainfluenza 3 (PCR) (NotDetected) Parainfluenza 4 (PCR) (NotDetected) RSV (PCR) (NotDetected) Entero/Rhino (PCR) (NotDetected) 06/30/21 06/30/21 06/30/21 Range/Units 09:08 10:24 10:53 WBC (4.8-10.8) K/uL RBC (4.2-5.4) M/uL Hgb (12.0-16.0) g/dL Hct (37-47) % MCV (80-100) fL MCH (25-34) pg MCHC (32-36) g/dL RDW Std Deviation (36.4-46.3) fL RDW Coeff of Karey (11.5-14.5) % Plt Count (130-400) K/uL MPV Immature Gran % (Auto) Neut % (Auto) Lymph % (Auto) [place] % (Auto) Eos % (Auto) Baso % (Auto) Neut # (Auto) Lymph # (Auto) [place] # (Auto) Eos # (Auto) Baso # (Auto) Immature Gran # (Auto) Absolute Nucleated RBC Nucleated RBC % (auto) Neutrophils % (Manual) Band Neutrophils % Lymphocytes % (Manual) Prolymphocyte % Reactive Lymphs % (Man) Monocytes % (Manual) Eosinophils % (Manual) Basophils % (Manual) Metamyelocytes % (Man) Myelocytes % (Man) Promyelocytes % (Man) Blast Cells % (Manual) Plasma Cell % (Manual) Other Cells % Nucleated RBC % Neutrophils # (Manual) Band Neutrophils # Total Absolute Neuts Lymphocytes # (Manual) Prolymphocyte # Reactive Lymphs # Total Abs Lymphocytes Monocytes # (Manual) Eosinophils # (Manual) Basophils # (Manual) Metamyelocytes # (Man) Myelocytes # (Manual) Promyelocytes # (Man) Blast Cells # (Man) Plasma Cell # (Manual) Other Cells # Nucleated RBCs # (Man) Hypersegmented Neuts Hyposegmented Neuts Hypogranular Neuts Large Granular Lymphs # Lrg Granular Lymphs Hairy Cells Smudge Cells Toxic Granulation Toxic Vacuolation Dohle Bodies Tom Rods Platelet Estimate Hypogranular Platelets Clumped Platelets Giant Platelets Platelet Satelliting RBC Morphology Polychromasia Hypochromasia Poikilocytosis Basophilic Stippling Anisocytosis Microcytosis Macrocytosis Spherocytes Pappenheimer Bodies Sickle Cells Target Cells Tear Drop Cells Ovalocytes Stomatocytes [place] Bodies Echinocytes Acanthocytes (Spur) Rouleaux RBC Agglutinates Schistocytes RBC Morph Comment Sezary Cell PT (9.0-12.0) Seconds INR (0.9-1.1) APTT (21.0-31.0) Seconds PTT Ratio Sodium (136-145) mmol/L Potassium (3.5-5.1) mmol/L Chloride (98-107) mmol/L Carbon Dioxide (21-32) mmol/L Anion Gap (3-11) BUN (6-23) mg/dl Creatinine (0.6-1.2) mg/dl Est Cr Clr Drug Dosing ml/min Est GFR ( Amer) ml/min Est GFR (Non-Af Amer) ml/min BUN/Creatinine Ratio (10-20) Glucose (70-99(Fasting)) mg/dl Lactate (0.4-2.0) mmol/L Calcium (8.5-10.1) mg/dl Magnesium (1.7-2.4) mg/dl Total Bilirubin (0.2-1.0) mg/dl AST (13-39) U/L ALT (7-52) U/L Alkaline Phosphatase (34-104) U/L Troponin I High Sens 46.2 H (0-14) pg/ml Total Protein (6.0-8.3) gm/dl Albumin (3.4-5.0) gm/dl Globulin (2.5-4.0) gm/dl Albumin/Globulin Ratio (0.9-2) Procalcitonin (0-0.5) ng/ml Urine Color [place] Urine Appearance Clear (Clear) Urine pH 6.0 (4.5-7.5) Ur Specific [place] 1.022 (1.000-1.030) Urine Protein 2+ H (Negative) Urine Glucose (UA) Negative (Negative) Urine Ketones Trace H (Negative) Urine Blood Negative (Negative) Urine Nitrite Negative (Negative) Urine Bilirubin Negative (Negative) Urine Urobilinogen Negative (Negative) Ur Leukocyte Esterase Trace H (Negative) Urine WBC (Auto) 5-10 H (0-5) /hpf Urine RBC (Auto) 0-4 (0-4) /hpf U Hyaline Cast (Auto) 5-10 H (0-5) /lpf U Epithel Cells (Auto) >30 H (0-5) /lpf Urine Bacteria (Auto) Negative (Negative) Ur Renal Epithelial Cell Not Reportable Urine Mucus Present A (None Prsent) Adenovirus (PCR) Not Detected (NotDetected) B. pertussis DNA (PCR) Not Detected (NotDetected) B.parapertussis DNA PCR Not Detected (NotDetected) C. pneumoniae DNA (PCR) Not Detected (NotDetected) Coronavirus OC43 (PCR) Not Detected (NotDetected) Coronavirus HKU1 (PCR) Not Detected (NotDetected) Coronavirus 229E (PCR) Not Detected (NotDetected) SARS-CoV-2 (PCR) Not Detected (NotDetected) Coronavirus NL63 (PCR) Not Detected (NotDetected) Human Metapneumovir PCR Not Detected (NotDetected) Influenza Type A (PCR) Not Detected (NotDetected) Influenza Type B (PCR) Not Detected (NotDetected) M. pneumoniae (PCR) Not Detected (NotDetected) Parainfluenza 1 (PCR) Not Detected (NotDetected) Parainfluenza 2 (PCR) Not Detected (NotDetected) Parainfluenza 3 (PCR) Not Detected (NotDetected) Parainfluenza 4 (PCR) Not Detected (NotDetected) RSV (PCR) Not Detected (NotDetected) Entero/Rhino (PCR) Not Detected (NotDetected) Administered Medications Discontinued Medications Acetaminophen (Acetaminophen 500 Mg Tab) 1,000 mg PO NOW STA Stop: 06/30/21 08:23 Last Admin: 06/30/21 08:44 Dose: 1,000 mg Documented by: [id number] Diphenhydramine HCl (Diphenhydramine 50 Mg/Ml Vial) 6.25 mg IV NOW STA Stop: 06/30/21 09:58 Last Admin: 06/30/21 10:05 Dose: 6.25 mg Documented by: [id number] Sodium Chloride (Nss 1000ml) 1,000 mls @ 999 mls/hr IV .[id number] SHAUNA Stop: 06/30/21 09:30 Last Admin: 06/30/21 08:58 Dose: 999 mls/hr Documented by: [id number] Cefepime HCl (Maxipime) 2,000 mg in 20 mls @ 5 mls/min IV NOW STA; Protocol Stop: 06/30/21 08:25 Last Admin: 06/30/21 08:58 Dose: 5 mls/min Documented by: [id number] Ibuprofen (Ibuprofen 600 Mg Tab) 600 mg PO NOW STA Stop: 06/30/21 09:58 Last Admin: 06/30/21 10:04 Dose: 600 mg Documented by: [id number] Imaging Data Radiologist's Impression: Chest X-Ray 06/30/21 08:22 XR chest 1V portable HISTORY: SEPSIS COMPARISON: None. FINDINGS: There are low lung volumes. No pneumothorax. No pleural effusions. The heart is mildly enlarged. A few bibasilar linear densities suggesting subsegmental atelectasis. Mild central pulmonary vascular congestion without overt edema. IMPRESSION: 1. Cardiomegaly with mild congestive change. 2. A few bibasilar linear densities. This favors subsegmental atelectasis. A pneumonia could also have a similar appearance but is considered less likely. ACT 112: Negative or not required by law. Electronically signed by: Sanket Curtis M.D. 06/30/2021 9:04 AM Discharge Plan Visit Data Chief Complaint: Chest Pain Stated Complaint: CHEST PAIN, DIFFICULTY BREATHING ED Provider: Festus Wood Discharge Problem: Sepsis, Elevated troponin, Pneumonia, Anemia, Neutropenia Patient Disposition: Admitted As Inpatient Condition: Fair Forms Stand Alone Forms: My [facility] Prescriptions Prescriptions: No Action ondansetron HCl 8 mg tablet 8 mg PO Q6H PRN (Reason: Nausea And Vomiting) RF: 0 prochlorperazine maleate 10 mg tablet 10 mg PO Q6H PRN (Reason: Nausea And Vomiting) RF: 0 calcium carbonate-vitamin D3 [Calcium 600 + D(3)] 600 mg-5 mcg (200 unit) Tablet 1 tab PO QAM RF: 0 exemestane 25 mg tablet 25 mg PO QAM RF: 0 zinc 50 mg Tablet 0 mg PO QAM RF: 0 levothyroxine 112 mcg tablet 112 mcg PO DAILYBB RF: 0 cholecalciferol (vitamin D3) [Vitamin D3] 125 mcg (5,000 unit) Tablet 125 mcg PO QAM RF: 0 azacitidine 100 mg Recon Soln 150 mg SUBCUT UD RF: 0 Referrals Referrals: Marisela Shoemaker PA-C [Primary Care Provider] -
--- NOTE | 2021-06-30 09:05 | XRay Report ---
XR chest 1V portable HISTORY: SEPSIS COMPARISON: None. FINDINGS: There are low lung volumes. No pneumothorax. No pleural effusions. The heart is mildly enla rged. A few bibasilar linear densities suggesting subsegmental atelectasis. Mild central pulmonary va scular congestion without overt edema. IMPRESSION: 1. Cardiomegaly with mild congestive change. 2. A few bibasilar linear densities. This favors subsegmental atelectasis. A pneumonia could also hav e a similar appearance but is considered less likely. ACT 112: Negative or not required by law. Electronically signed by: Sanket Curtis M.D. 06/30/2021 9:04 AM
[2021-06-30 09:08] LABS: Albumin Globulin Ratio 1.1 (0.9-2); Albumin Level 3.7 gm/dl (3.4-5.0); BUN Creatinine Ratio 17.6 (10-20); Bilirubin,Total 1.2 mg/dl (0.2-1.0); Calcium 8.8 mg/dl (8.5-10.1); Creatinine Clr Calc Pharmacy 79.4 ml/min; Est GFR (African American) 89.4 ml/min; Est GFR (Non-African American) 77.1 ml/min; Globulin 3.5 gm/dl (2.5-4.0); Magnesium 1.7 mg/dl (1.7-2.4); Potassium 3.5 mmol/L (3.5-5.1); Total Protein 7.2 gm/dl (6.0-8.3)
[2021-06-30 09:17] LABS: INR 1.3 (0.9-1.1); Partial Thromboplastin Ratio > 5.1; Prothrombin Time 13.5 Seconds (9.0-12.0)
[2021-06-30 09:27] LABS: Hematocrit (blood only) 16.7 % (37-47); Hemoglobin 5.6 g/dL (12.0-16.0); Mean Corpuscular Hemoglobin 31.8 pg (25-34); Mean Corpuscular Hgb Conc 33.5 g/dL (32-36); Mean Corpuscular Volume 94.9 fL (80-100); Platelet Count 116 K/uL (130-400); RDW Coefficient of Variation 23.4 % (11.5-14.5); RDW Standard Deviation 72.9 fL (36.4-46.3); Red Blood Count 1.76 M/uL (4.2-5.4)
[2021-06-30 09:30] LABS: Partial Thromboplastin Time > 139.0 Seconds (21.0-31.0)
[2021-06-30] MEDS ORDERED: diphenhydrAMINE 50 MG/ML VIAL IV STA (09:57)
[2021-06-30] MEDS ORDERED: IBUPROFEN 600 MG TAB PO STA (09:57)
--- NOTE | 2021-06-30 10:14 | History & Physical Report ---
Date of Service June 30, 2021 Assessment & Plan (1) Sepsis: (2) Neutropenic fever: (3) LLL pneumonia: (4) Symptomatic anemia: (5) Elevated troponin: (6) MDS (myelodysplastic syndrome): Plan: This is a 56 yr old F who has a significant past medical history of breast cancer status post bilateral mastectomy in 2017, history of ovarian cancer status post IRENA and BSO in 2017, BRCA positive, hypothyroidism and MDS who presents to ED after being referred [facility] due to chest pain x1 day and low hemoglobin. Patient meets criteria for sepsis secondary to tachycardia, hypotension and fever. Blood and urine cultures ordered and obtained. Chest x-ray concerning for left lower lobe pneumonia. Lactic acid normal, elevated procalcitonin 1.08. Received IV cefepime in ED. Sepsis Neutropenic fever Left lower lobe pneumonia Hypoxia Admit to telemetry IV cefepime and vancomycin for broad-spectrum coverage Await blood and urine cultures Obtain sputum culture Incentive spirometry Tessalon Perles As needed nebs Supplemental oxygen MDS Symptomatic Anemia recently dx with MDS follows Dr. Bae, last chemo ~ 1 month ago found to be profoundly anemia 2 unit PRBC ordered and transfusing monitor closely, can consult Dr. Bae if worsening no signs of bleeding Hx of breast and ovarian ca 2017 continue exemestane Hypothyroidism continue Synthroid DVT ppx: SCD/TEDS for now and ambulate due to anemia, reassess daily and initiate chemical ppx when appropriate Dispo: PCU PCP: MIRANDA Bonilla FULL CODE Pt was seen and examined History of Present Illness Chief Complaint: Referred by [facility] due to chest pain x 1 day and low hgb. Primary Care Provider: Marisela Shoemaker PA-C This is a 56 yr old F who has a significant past medical history of breast cancer status post bilateral mastectomy in 2017, history of ovarian cancer status post IRENA and BSO in 2017, BRCA positive, hypothyroidism and MDS who presents to ED after being referred from [facility] due to chest pain x1 day and low hemoglobin. Of significance patient recently got diagnosed with MDS approximately a few months ago. She is following with Dr. Bae was seen in clinic yesterday. She was found to be neutropenic with a hemoglobin of 6.2. She was set up at [facility] for 2 units of PRBC to be transfused today. When she arrived to [facility] she complained of left-sided chest pain and was tachycardic. She was then referred to ED. She states over the last 4 days she has felt unwell. She complains of increasing fatigue and dyspnea with exertion. She also has a wet cough with clear sputum. She further complains of chills and sweats, but no documented fever at home. Yesterday afternoon she started with left-sided chest pain. She has never experienced in the past. It would come and go. Pain was worse with inspiration. She did not try anything for her pain. She thought maybe it was indigestion. It was not made worse with exertion. Overall decreased appetite for the past 4 days. She does admit to having her first round of chemotherapy for MDS approximately 1 month ago. She states she takes 2 shots and is unaware of the names. She states she takes it for a week and then is off for 3 weeks. In ED pt met Severe Sepsis criteria 2/2 to hypotension, tachycardic and likely source of LLL PNA. She was found to be profoundly anemia with hgb of 5.6. She had 2 units of PRBC ordered and was started in ED. She also met criteria for neutropenic fever. She received IV cefepime in ED. Allergies Allergy/AdvReac Type Severity Reaction Status Date / Time No Known Allergies Allergy Verified 06/30/21 09:33 Home Medications Medication Instructions Recorded Confirmed Type azacitidine 100 mg solution for 150 mg SUBCUT UD 06/30/21 06/30/21 History injection calcium carbonate 600 mg-vitamin 1 tab PO QAM 06/30/21 06/30/21 History D3 5 mcg (200 unit) tablet (Calcium 600 + D(3)) cholecalciferol (vitamin D3) 125 125 mcg PO QAM 06/30/21 06/30/21 History mcg (5,000 unit) tablet (Vitamin D3) exemestane 25 mg tablet 25 mg PO QAM 06/30/21 06/30/21 History levothyroxine 112 mcg tablet 112 mcg PO DAILYBB 06/30/21 06/30/21 History ondansetron HCl 8 mg tablet 8 mg PO Q6H PRN 06/30/21 06/30/21 History prochlorperazine maleate 10 mg 10 mg PO Q6H PRN 06/30/21 06/30/21 History tablet zinc 50 mg tablet 0 mg PO QAM 06/30/21 06/30/21 History Past Med/Surg History Medical History BRCA gene mutation positive Cancer of central portion of right female breast (06/08/16) Hx of breast cancer hx 2017 s/p b/l masectomy, XRT and chemo Hx of ovarian cancer IRENA BSO 01/2017 Hypothyroidism Surgical History History of bilateral mastectomy History of cataract extraction History of total abdominal hysterectomy and bilateral salpingo-oophorectomy Hx of colonoscopy with polypectomy last c scope 05/2021 WNL Family History Other Breast cancer Diabetes Social History (Updated 06/30/21 @ 12:52 by Lisa Montez PA-C) Smoking Status: Never smoker Hx Alcohol Use: Yes Alcohol type: wine Alcohol Intake Frequency: Monthly or Less Hx Substance Use: No Preferred Language: Turkmen Beliefs That Will Affect Care: None marital status: Current Living Situation: Spouse Feels Safe at Home: Yes Review of Systems Review of Systems: All systems reviewed & are unremarkable except as noted in HPI & below Physical Exam Physical Exam: Constitutional: WD/WN, vitals as above, NAD, sitting up in bed, pleasant, conversing easily Head: Normocephalic, Atraumatic Eyes: PERRL, conjunctivae normal, anicteric sclerae ENMT: external ear and nose normal, oropharynx normal Neck: trachea midline, no thyromegaly normal visual inspection Respiratory: normal respiratory effort, lungs clear to auscultation, no wheeze, rhonchi, +crackles LLL. Normal insp/exp effort, no accessory muscle use Cardiovascular: RRR, 2/6 DAMIEN RUSB, no edema Vessels: no JVD or carotid bruit Chest: normal inspection of chest , RACW port Abdomen: normal bowel sounds, soft, nontender, no hepatosplenomegaly Musculoskeletal: no cyanosis or clubbing, extremities motor strength 5/5 Skin: no rashes, warm and dry normal turgor Neurologic: PERRL, EOMI, accommodation nl, no face palsy, no dysarthria CN's II-XI intact bilaterally and moves all extremities Psychiatric: A+Ox3, euthymic affect Lymphatic: no cervical or axillary lymphadenopathy : deferred Results & Data Results & Data ([place]) Vital Signs (Past 12 Hours) Vital Signs Temp Pulse Pulse Resp BP BP Pulse Ox 06/30/21 09:51 38.0 C H 96 H 27 H 91/50 L 99 06/30/21 09:20 37.3 C 100 H 103 H 26 H 93/60 L 93/60 L 97 06/30/21 09:05 86 L 06/30/21 09:04 37 C 108 H 30 H 106/62 94 06/30/21 08:30 16 94 06/30/21 08:11 38.7 C H 112 H 18 106/64 95 Diagnostic Findings Chest X-Ray 06/30/21 08:22 XR chest 1V portable HISTORY: SEPSIS COMPARISON: None. FINDINGS: There are low lung volumes. No pneumothorax. No pleural effusions. The heart is mildly enlarged. A few bibasilar linear densities suggesting subsegmental atelectasis. Mild central pulmonary vascular congestion without overt edema. IMPRESSION: 1. Cardiomegaly with mild congestive change. 2. A few bibasilar linear densities. This favors subsegmental atelectasis. A pneumonia could also have a similar appearance but is considered less likely. ACT 112: Negative or not required by law. Electronically signed by: Sanket Curtis M.D. 06/30/2021 9:04 AM Medications Administered Medication List Discontinued Medications Acetaminophen (Acetaminophen 500 Mg Tab) 1,000 mg PO NOW STA Stop: 06/30/21 08:23 Last Admin: 06/30/21 08:44 Dose: 1,000 mg Documented by: [id number] Diphenhydramine HCl (Diphenhydramine 50 Mg/Ml Vial) 6.25 mg IV NOW STA Stop: 06/30/21 09:58 Last Admin: 06/30/21 10:05 Dose: 6.25 mg Documented by: [id number] Sodium Chloride (Nss 1000ml) 1,000 mls @ 999 mls/hr IV .Q1H1M SHAUNA Stop: 06/30/21 09:30 Last Admin: 06/30/21 08:58 Dose: 999 mls/hr Documented by: [id number] Cefepime HCl (Maxipime) 2,000 mg in 20 mls @ 5 mls/min IV NOW STA; Protocol Stop: 06/30/21 08:25 Last Admin: 06/30/21 08:58 Dose: 5 mls/min Documented by: [id number] Ibuprofen (Ibuprofen 600 Mg Tab) 600 mg PO NOW STA Stop: 06/30/21 09:58 Last Admin: 06/30/21 10:04 Dose: 600 mg Documented by: [id number] ECG Rate (beats per minute): 110 Rhythm: sinus tachycardia COVID- Results Results ID- Adm Lab Results: RBC 1.76 M/uL (4.2-5.4) L 06/30/21 WBC 0.30 K/uL (4.8-10.8) L* 06/30/21 Hgb 5.6 g/dL (12.0-16.0) L* 06/30/21 Hct 16.7 % (37-47) L* 06/30/21 Plt Count 116 K/uL (130-400) L 06/30/21 Na 132 mmol/L (136-145) L 06/30/21 K 3.5 mmol/L (3.5-5.1) 06/30/21 Cl 100 mmol/L (98-107) 06/30/21 CO2 24 mmol/L (21-32) 06/30/21 Anion Gap 8 (3-11) 06/30/21 BUN 15 mg/dl (6-23) 06/30/21 Creatinine 0.85 mg/dl (0.6-1.2) 06/30/21 BUN/Creatinine Ratio 17.6 (10-20) 06/30/21 Glucose Level 132 mg/dl (70-99(Fasting)) H 06/30/21 Ca 8.8 mg/dl (8.5-10.1) 06/30/21 Total Bilirubin 1.2 mg/dl (0.2-1.0) H 06/30/21 AST/SGOT 10 U/L (13-39) L 06/30/21 ALT/SGPT 16 U/L (7-52) 06/30/21 Alkaline Phosphatase 107 U/L (34-104) H 06/30/21 Total Protein 7.2 gm/dl (6.0-8.3) 06/30/21 Albumin 3.7 gm/dl (3.4-5.0) 06/30/21 Globulin 3.5 gm/dl (2.5-4.0) 06/30/21 Albumin/Globulin Ratio 1.1 (0.9-2) 06/30/21 Procalcitonin 1.08 ng/ml (0-0.5) H 06/30/21 PTT > 139.0 Seconds (21.0-31.0) H* 06/30/21 INR 1.3 (0.9-1.1) H 06/30/21 Adenovirus (PCR) Not Detected (NotDetected) 06/30/21 B. parapertussis DNA (PCR) Not Detected (NotDetected) 06/30/21 B. pertussis DNA (PCR) Not Detected (NotDetected) 06/30/21 C. pneumoniae DNA (PCR) Not Detected (NotDetected) 06/30/21 Coronavirus Type OC43 (PCR) Not Detected (NotDetected) 06/30/21 Coronavirus Type HKU1 (PCR) Not Detected (NotDetected) 06/30/21 Coronavirus Type 229E (PCR) Not Detected (NotDetected) 06/30/21 COVID-19 PCR Not Detected (NotDetected) 06/30/21 Coronavirus Type NL63 (PCR) Not Detected (NotDetected) 06/30/21 Human Metapneumovirus (PCR) Not Detected (NotDetected) 06/30/21 Influenza Virus Type A (PCR) Not Detected (NotDetected) 06/30/21 Influenza Virus Type B (PCR) Not Detected (NotDetected) 06/30/21 M. pneumoniae (PCR) Not Detected (NotDetected) 06/30/21 Parainfluenza Type 1 (PCR) Not Detected (NotDetected) 06/30/21 Parainfluenza Type 2 (PCR) Not Detected (NotDetected) 06/30/21 Parainfluenza Type 3 (PCR) Not Detected (NotDetected) 06/30/21 Parainfluenza Type 4 (PCR) Not Detected (NotDetected) 06/30/21 RSV (PCR) Not Detected (NotDetected) 06/30/21 Enterovirus/Rhinovirus (PCR) Not Detected (NotDetected) 06/30/21 Chest X-Ray 06/30/21 Code Status & VTE Plan Code Status Full Code VTE Prophylaxis Plan VTE Prophylaxis will be ordered: Yes Supervising Physician Co-Signing Physician Notes 56 yr old F who has a significant past medical history of breast cancer status post bilateral mastectomy in 2017, history of ovarian cancer status post IRENA and BSO in 2017, BRCA positive, hypothyroidism and recent MDS who presents to ED after being referred from [facility] due to chest pain x1 day and low hemoglobin. Reported malaise for the past few days with increasing dyspnea on exertion, fatigue, productive cough and chills. Was seen by oncologist blood cultures were drawn, was also noted to be anemic and arrangements were made for [facility] transfusion today. Was found to be febrile with a temperature of 38.7, tachycardic, tachypneic. Patient is pancytopenic with hemoglobin of 5.6, neutropenic, troponin HS of 51, procalcitonin of 1.08 Chest x-ray showed cardiomegaly, few bibasilar linear densities. Patient has sepsis, pneumonia, neutropenic fever, pancytopenia Continue broad-spectrum antibiotics with Vanco and cefepime. Blood cultures drawn outpatient yesterday growing GPC in clusters Follow-up blood cultures as well as blood culture from admission today. Send for sputum culture Trend troponin and get an echocardiogram. EKG showed sinus tachycardia. Patient already getting a unit of blood during my evaluation. Will need to get a second unit of blood today. Monitor blood counts Agree with other plans as detailed by Lisa Montez PA-C
[2021-06-30 10:18] LABS: Adenovirus PCR Not Detected (NotDetected); Bordetella parapertussis PCR Not Detected (NotDetected); Bordetella pertussis PCR Not Detected (NotDetected); Chlamydia pneumoniae PCR Not Detected (NotDetected); Coronavirus 229E PCR Not Detected (NotDetected); Coronavirus CoV-2 (COVID19)PCR Not Detected (NotDetected); Coronavirus HKU1 PCR Not Detected (NotDetected); Coronavirus NL63 PCR Not Detected (NotDetected); Coronavirus OC43PCR Not Detected (NotDetected); Human Metapneumovirus PCR Not Detected (NotDetected); Influenza A PCR Not Detected (NotDetected); Influenza B PCR Not Detected (NotDetected); Mycoplasma pneumoniae PCR Not Detected (NotDetected); Parainfluenza Virus 1 PCR Not Detected (NotDetected); Parainfluenza Virus 2 PCR Not Detected (NotDetected); Parainfluenza Virus 3 PCR Not Detected (NotDetected); Parainfluenza Virus 4 PCR Not Detected (NotDetected); Respiratory Syncytial VirusPCR Not Detected (NotDetected); Rhinovirus/Enterovirus PCR Not Detected (NotDetected)
[2021-06-30 11:03] LABS: Appearance Urine Clear (Clear); Bacteria Urine Automated Negative (Negative); Bilirubin Urine Negative (Negative); Blood Urine Negative (Negative); Color Urine Orange; Epithelial Cell Urine Auto >30 /lpf (0-5); Glucose Urine UA Negative (Negative); Ketones Urine Trace (Negative); Leukocyte Esterase Urine Trace (Negative); Nitrite Urine Negative (Negative); Protein Urine 2+ (Negative); RBC Urine Automated 0-4 /hpf (0-4); Specific Gravity Urine 1.022 (1.000-1.030); Urobilinogen Urine Negative (Negative)
[2021-06-30 11:13] LABS: Mucus Urine Present (None Prsent)
[2021-06-30] MEDS ORDERED: POLYETHYLENE (MIRALAX) 17 GM PACK PO PRN (12:02)
[2021-06-30] MEDS ORDERED: VANCOMYCIN CONSULT ACTIVE PRN (12:02)
[2021-06-30] MEDS ORDERED: CONSULT PHARMACY STA (12:02)
[2021-06-30] MEDS ORDERED: ONDANSETRON INJ 2 MG/ML 2 ML VIAL IV PRN (12:02)
[2021-06-30] MEDS ORDERED: ALUMINUM/MAGNESIUM SUSP 30 ML UDC PO PRN (12:02)
[2021-06-30] MEDS ORDERED: MAGNESIUM HYDROXIDE SUSP 30 ML UDC PO PRN (12:02)
[2021-06-30] MEDS ORDERED: VANCOMYCIN HCL 2,000 MG in SODIUM CHLORIDE 0.9% 500 ML IV ONE (12:15)
--- NOTE | 2021-06-30 14:21 | Electrocardiogram Report ---
Test Reason : Blood Pressure : / mmHG Vent. Rate : 110 BPM Atrial Rate : 110 BPM P-R Int : 142 ms QRS Dur : 086 ms QT Int : 318 ms P-R-T Axes : 039 020 043 degrees QTc Int : 430 ms Sinus tachycardia Otherwise normal ECG No previous ECGs available Confirmed by Aramis Fountain ([id number]) on 06/30/2021 2:21:01 PM Referred By: REFERRED SELF Confirmed By:Irvin Fountain
[2021-06-30] MEDS: CEFEPIME 2,000 MG in SYRINGE 0 ML IV SCH (17:46)
[2021-06-30 19:49] LABS: Hematocrit (blood only) 19.4 % (37-47); Hemoglobin 6.5 g/dL (12.0-16.0)
[2021-06-30] MEDS: DOCUSATE SODIUM 100 MG CAP PO SCH (21:32)
[2021-07-01] MEDS ORDERED: VANCOMYCIN HCL 1,250 MG in SODIUM CHLORIDE 0.9% 250 ML IV SCH
[2021-07-01] MEDS: CEFEPIME 2,000 MG in SYRINGE 0 ML IV SCH ×3 (01:03→16:40)
[2021-07-01] MEDS: ACETAMINOPHEN 325 MG TAB PO PRN ×3 (05:01→19:41)
[2021-07-01] MEDS: LEVOTHYROXINE SODIUM 112 MCG TABLET PO SCH (05:28)
[2021-07-01 06:03] LABS: Albumin Level 3.2 gm/dl (3.4-5.0); BUN Creatinine Ratio 19.7 (10-20); Bilirubin,Total 1.9 mg/dl (0.2-1.0); Calcium 7.8 mg/dl (8.5-10.1); Creatinine Clr Calc Pharmacy 103.4 ml/min; Est GFR (African American) 115.3 ml/min; Est GFR (Non-African American) 99.4 ml/min; Globulin 3.3 gm/dl (2.5-4.0); Magnesium 1.8 mg/dl (1.7-2.4); Potassium 3.5 mmol/L (3.5-5.1); Total Protein 6.5 gm/dl (6.0-8.3)
[2021-07-01 07:49] LABS: Hematocrit (blood only) 19.6 % (37-47); Hemoglobin 6.6 g/dL (12.0-16.0); Mean Corpuscular Hgb Conc 33.7 g/dL (32-36); Platelet Count 97 K/uL (130-400); RDW Coefficient of Variation 21.7 % (11.5-14.5); RDW Standard Deviation 69.7 fL (36.4-46.3); Red Blood Count 2.13 M/uL (4.2-5.4)
[2021-07-01 07:51] LABS: Giant Platelets 2+; Lymphocytes # (auto) 0.55 K/uL (1.2-3.4); Lymphocytes % (auto) 91.7 %; Monocytes # (auto) 0.01 K/uL (0.11-0.59); Monocytes % (auto) 1.7 %; Neutrophils # (auto) 0.04 K/uL (1.4-6.5); Neutrophils % (auto) 6.6 %; Platelet Estimate Decreased (Normal); Poikilocytosis Present; Toxic Granulation 1+; Toxic Vacuolation 1+
[2021-07-01] MEDS: CHOLECALCIFEROL 5,000 UNITS 125 MCG TAB PO SCH (08:32)
[2021-07-01] MEDS: CALCIUM 600MG + VIT D 400 IU TAB PO SCH (08:32)
[2021-07-01] MEDS: POLYETHYLENE (MIRALAX) 17 GM PACK PO SCH (08:32)
--- NOTE | 2021-07-01 09:10 | Pharmacy Report ---
Pharmacy [facility] AUC Short Note - Date of Service July 01, 2021 - Assessment & Plan Assessment 56 year old F who was referred to the ED from [facility] due to chest pain and low hemoglobin. Patient found to be tachycardic, hypotensive, and afebrile with symptomatic anemia and neutropenia. CXR concerning for LLL pneumonia. Patient started on vancomycin + cefepime for dual treatment of GPC bacteremia and pneumonia. Patient reports receiving chemotherapy about one month ago. Microbiologic data includes: Negative MRSA Nasal Swab, staph/MRSA PCR = S.aureus positive, MRSA negative Plan Vancomycin * Loading dose: 2000 mg IV * Maintenance dose: 1250 mg IV every 12 hours * Regimen is predicted to achieve target AUC/JAS of 400-600 mg/L.hr * Trough level ordered for 07/02 * Staph/MRSA PCR run on 06/29 blood sample indicates organism is MSSA, therefore may consider discontinuation of vancomycin. Nafcillin or cefazolin is drug of choice for MSSA, recommend holding off on de-escalation of cefepime until GNB growing in 03/17 is identified. Pharmacy will continue to follow and will adjust dose/frequency as necessary. Thank you. *AUC/JAS is the preferred PK/PD target for vancomycin. AUC guided dosing is effective and associated with decreased risk of nephrotoxicity compared to traditional trough targets
[2021-07-01 10:13] LABS: Estimated Average Glucose 117 mg/dl; Hemoglobin A1C 5.7 % (4.5-5.6)
[2021-07-01] MEDS: levoFLOXacin/D5W 750 MG/150 ML BAG IV SCH (11:24)
[2021-07-01] MEDS: EXEMESTANE 25 MG PO SCH (11:24)
[2021-07-01 14:21] LABS: Hematocrit (blood only) 23.3 % (37-47); Hemoglobin 7.7 g/dL (12.0-16.0)
--- NOTE | 2021-07-01 14:53 | Cardiology Consultation ---
Date of Consultation July 01, 2021 Assessment & Plan (1) Sepsis: (2) Neutropenia: (3) Anemia: (4) Pneumonia: (5) Elevated troponin: I believe the troponin elevation is a type II and not due to acute coronary syndrome. I would recommend no additional cardiac testing unless the patient's clinical worse changes. If that occurs, please reconsult. History of Present Illness Attending Physician: Nicanor Lindsey MD History of Present Illness This is a 56-year-old female with a history of breast and ovarian cancer and now myelodysplastic syndrome. She presented profoundly anemic and neutropenic. Left lower lobe pneumonia. Her high-sensitivity troponins are slightly elevated and we have been asked to see her. She has no prior history of heart disease and has no ongoing cardiac symptoms. Echocardiogram completed this admission shows normal LV function. Allergies Allergy/AdvReac Type Severity Reaction Status Date / Time No Known Allergies Allergy Verified 06/30/21 09:33 Home Medications Medication Instructions Recorded Confirmed Type azacitidine 100 mg solution for 150 mg SUBCUT UD 06/30/21 06/30/21 History injection calcium carbonate 600 mg-vitamin 1 tab PO QAM 06/30/21 06/30/21 History D3 5 mcg (200 unit) tablet (Calcium 600 + D(3)) cholecalciferol (vitamin D3) 125 125 mcg PO QAM 06/30/21 06/30/21 History mcg (5,000 unit) tablet (Vitamin D3) exemestane 25 mg tablet 25 mg PO QAM 06/30/21 06/30/21 History levothyroxine 112 mcg tablet 112 mcg PO DAILYBB 06/30/21 06/30/21 History ondansetron HCl 8 mg tablet 8 mg PO Q6H PRN 06/30/21 06/30/21 History prochlorperazine maleate 10 mg 10 mg PO Q6H PRN 06/30/21 06/30/21 History tablet zinc 50 mg tablet 0 mg PO QAM 06/30/21 06/30/21 History Patient History Medical History BRCA gene mutation positive Cancer of central portion of right female breast (06/08/16) Hx of breast cancer hx 2017 s/p b/l masectomy, XRT and chemo Hx of ovarian cancer IRENA BSO 01/2017 Hypothyroidism Surgical History History of bilateral mastectomy History of cataract extraction History of total abdominal hysterectomy and bilateral salpingo-oophorectomy Hx of colonoscopy with polypectomy last c scope 05/2021 WNL Family History Other Breast cancer Diabetes Social History Smoking Status: Never smoker Hx Alcohol Use: Yes Alcohol type: wine Alcohol Intake Frequency: Monthly or Less Hx Substance Use: No Preferred Language: Divehi Communication Ability: Effective 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 All other 10 point review of systems are negative. Physical Exam Physical Exam: General: no acute distress and stated age Head: normocephalic, no masses, lesions, tenderness or abnormalities Eyes: conjunctiva are pink and non-injected, sclera clear Neck: supple, no adenopathy, no bruits, normal jugular venous pulse, no hepatojugular reflux Chest: normal shape and normal respiratory effort Lungs: clear to auscultation and percussion Cardiac Exam: - regular rate & rhythm, no murmurs gallops or rubs - normal S1, normal S2 Pulses: 2(+) throughout Abdomen: abdomen soft, non-tender, no abnormal masses and no hepatosplenomegaly Musculoskeletal: no gait disturbance, no joint inflammation, no deforming arthritis Extremities: no edema and no cyanosis Neuro: grossly normal exam Results & Data ([facility]) Vital Signs (Past 12 Hours) Vital Signs Temp Pulse Pulse Resp BP BP Pulse Ox 07/01/21 13:59 37.2 C 07/01/21 12:30 38.3 C H 07/01/21 10:26 38.5 C H 103 H 19 112/69 96 07/01/21 10:12 37.3 C 103 H 20 115/71 07/01/21 09:26 37.5 C 98 H 18 108/66 98 07/01/21 08:56 37.7 C H 98 H 18 100/62 98 07/01/21 08:48 97 H 18 103/61 98 07/01/21 08:34 100 H 18 106/64 07/01/21 08:21 37.1 C 100 H 18 96/53 L 96 07/01/21 08:00 91 H 07/01/21 07:17 37.2 C 91 H 19 101/50 L 92 07/01/21 04:58 38.1 C H 105 H 18 104/65 92 Laboratory Results Laboratory Results - last 24 hr 06/29/21 06/30/21 06/30/21 15:13 15:54 19:40 WBC RBC Hgb 6.5 L* Hct 19.4 L* MCV MCH MCHC RDW Std Deviation RDW Coeff of Karey Plt Count Immature Gran % (Auto) Neut % (Auto) Lymph % (Auto) Robeson % (Auto) Eos % (Auto) Baso % (Auto) Neut # (Auto) Lymph # (Auto) Robeson # (Auto) Eos # (Auto) Baso # (Auto) Immature Gran # (Auto) Toxic Granulation Toxic Vacuolation Platelet Estimate Giant Platelets Poikilocytosis Sodium Potassium Chloride Carbon Dioxide Anion Gap BUN Creatinine Est Cr Clr Drug Dosing Est GFR ( Amer) Est GFR (Non-Af Amer) BUN/Creatinine Ratio Glucose Estimat Average Glucose Hemoglobin A1c Calcium Magnesium Total Bilirubin AST ALT Alkaline Phosphatase Troponin I High Sens 25.9 H D B-Natriuretic Peptide Total Protein Albumin Globulin Albumin/Globulin Ratio Nasal Screen MRSA (PCR) Blood Type Antibody Screen Crossmatch See Detail 06/30/21 06/30/21 06/30/21 21:35 22:23 22:23 WBC RBC Hgb Hct MCV MCH MCHC RDW Std Deviation RDW Coeff of Karey Plt Count Immature Gran % (Auto) Neut % (Auto) Lymph % (Auto) Robeson % (Auto) Eos % (Auto) Baso % (Auto) Neut # (Auto) Lymph # (Auto) Robeson # (Auto) Eos # (Auto) Baso # (Auto) Immature Gran # (Auto) Toxic Granulation Toxic Vacuolation Platelet Estimate Giant Platelets Poikilocytosis Sodium Potassium Chloride Carbon Dioxide Anion Gap BUN Creatinine Est Cr Clr Drug Dosing Est GFR ( Amer) Est GFR (Non-Af Amer) BUN/Creatinine Ratio Glucose Estimat Average Glucose Hemoglobin A1c Calcium Magnesium Total Bilirubin AST ALT Alkaline Phosphatase Troponin I High Sens 829.8 H* D B-Natriuretic Peptide 441 H Total Protein Albumin Globulin Albumin/Globulin Ratio Nasal Screen MRSA (PCR) Negative Blood Type Antibody Screen Crossmatch 07/01/21 07/01/21 07/01/21 05:18 05:18 05:18 WBC 0.60 L* RBC 2.13 L Hgb 6.6 L* Hct 19.6 L* MCV 92.0 MCH 31.0 MCHC 33.7 RDW Std Deviation 69.7 H RDW Coeff of Karey 21.7 H Plt Count 97 L Immature Gran % (Auto) 0.0 Neut % (Auto) 6.6 Lymph % (Auto) 91.7 Robeson % (Auto) 1.7 Eos % (Auto) 0.0 Baso % (Auto) 0.0 Neut # (Auto) 0.04 L* Lymph # (Auto) 0.55 L Robeson # (Auto) 0.01 L Eos # (Auto) 0.00 Baso # (Auto) 0.00 Immature Gran # (Auto) 0.00 Toxic Granulation 1+ Toxic Vacuolation 1+ Platelet Estimate Decreased L Giant Platelets 2+ Poikilocytosis Present Sodium 133 L Potassium 3.5 Chloride 103 Carbon Dioxide 23 Anion Gap 7 BUN 13 Creatinine 0.66 Est Cr Clr Drug Dosing 103.4 Est GFR ( Amer) 115.3 Est GFR (Non-Af Amer) 99.4 BUN/Creatinine Ratio 19.7 Glucose 110 H Estimat Average Glucose 117 Hemoglobin A1c 5.7 H Calcium 7.8 L Magnesium 1.8 Total Bilirubin 1.9 H D AST 13 ALT 15 Alkaline Phosphatase 101 Troponin I High Sens B-Natriuretic Peptide Total Protein 6.5 Albumin 3.2 L Globulin 3.3 Albumin/Globulin Ratio 1.0 Nasal Screen MRSA (PCR) Blood Type Antibody Screen Crossmatch 07/01/21 07/01/21 07/01/21 05:18 10:00 13:56 WBC RBC Hgb 7.7 L Hct 23.3 L MCV MCH MCHC RDW Std Deviation RDW Coeff of Karey Plt Count Immature Gran % (Auto) Neut % (Auto) Lymph % (Auto) Robeson % (Auto) Eos % (Auto) Baso % (Auto) Neut # (Auto) Lymph # (Auto) Robeson # (Auto) Eos # (Auto) Baso # (Auto) Immature Gran # (Auto) Toxic Granulation Toxic Vacuolation Platelet Estimate Giant Platelets Poikilocytosis Sodium Potassium Chloride Carbon Dioxide Anion Gap BUN Creatinine Est Cr Clr Drug Dosing Est GFR ( Amer) Est GFR (Non-Af Amer) BUN/Creatinine Ratio Glucose Estimat Average Glucose Hemoglobin A1c Calcium Magnesium Total Bilirubin AST ALT Alkaline Phosphatase Troponin I High Sens 4334.1 H* D B-Natriuretic Peptide Total Protein Albumin Globulin Albumin/Globulin Ratio Nasal Screen MRSA (PCR) Blood Type Cancelled Antibody Screen Cancelled Crossmatch Medications Administered Current Inpatient Medications Acetaminophen (Acetaminophen 325 Mg Tab) 650 mg PO Q4H PRN PRN Reason: Pain or Fever Stop: 07/30/21 12:01 Last Admin: 07/01/21 11:31 Dose: 650 mg Documented by: Al Hydrox/Mg Hydrox/Simethicone (Aluminum/Magnesium Susp 30 Ml Udc) 15 ml PO Q4H PRN PRN Reason: Dyspepsia Stop: 07/30/21 12:01 Docusate Sodium (Docusate Sodium 100 Mg Cap) 100 mg PO HS [facility], [facility]1983 Stop: 07/30/21 20:59 Last Admin: 06/30/21 21:32 Dose: 100 mg Documented by: Exemestane (Exemestane 25mg) 1 ea PO Q24H [facility], [facility]1983 Stop: 07/31/21 10:59 Last Admin: 07/01/21 11:24 Dose: 1 ea Documented by: Cefepime HCl 2,000 mg/ Syringe 20 mls @ 5 mls/min IV Q8H [facility], [facility]1983 Stop: 07/14/21 16:59 Last Admin: 07/01/21 08:32 Dose: 5 mls/min Documented by: Levofloxacin/Dextrose (Levaquin/D5w) 750 mg in 150 mls @ 100 mls/hr IV Q24H [facility], [facility]1983; Protocol Stop: 07/08/21 10:59 Last Infusion: 07/01/21 13:28 Dose: Infused Documented by: Levothyroxine Sodium (Levothyroxine Sodium 112 Mcg Tablet) 112 mcg PO DAILYBB [facility], [facility]1983 Stop: 07/31/21 06:29 Last Admin: 07/01/21 05:28 Dose: 112 mcg Documented by: Magnesium Hydroxide (Magnesium Hydroxide Susp 30 Ml Udc) 30 ml PO Q12H PRN PRN Reason: Constipation Stop: 07/30/21 12:01 Multivitamins/Minerals (Calcium 600mg + Vit D 400 Iu Tab) 1 tab PO QAM SHAUNA Stop: 07/31/21 08:59 Last Admin: 07/01/21 08:32 Dose: 1 tab Documented by: Ondansetron HCl (Ondansetron Inj 2 Mg/Ml 2 Ml Vial) 4 mg IV Q6H PRN PRN Reason: Nausea Stop: 07/30/21 12:01 Last Admin: 07/01/21 11:24 Dose: 4 mg Documented by: Polyethylene Glycol (Polyethylene (Miralax) 17 Gm Pack) 17 gm PO DAILY PRN PRN Reason: Constipation Stop: 07/30/21 12:01 Polyethylene Glycol (Polyethylene (Miralax) 17 Gm Pack) 17 gm PO DAILY [facility] Stop: 07/31/21 08:59 Last Admin: 07/01/21 08:32 Dose: 17 gm Documented by: Vitamin D (Cholecalciferol 5,000 Units 125 Mcg Tab) 5,000 units PO QAM SHAUNA Stop: 07/31/21 08:59 Last Admin: 07/01/21 08:32 Dose: 5,000 units Documented by: (1) Sepsis Sepsis acute organ dysfunction status: without acute organ dysfunction Sepsis type: sepsis due to unspecified organism Qualified Code(s): A41.9 - Sepsis, unspecified organism (2) Neutropenia Neutropenia type: unspecified Qualified Code(s): D70.9 - Neutropenia, unspecified (3) Anemia Anemia type: unspecified type Qualified Code(s): D64.9 - Anemia, unspecified (4) Pneumonia Laterality: left Lung location: lower lobe of lung Pneumonia type: due to unspecified organism Qualified Code(s): J18.9 - Pneumonia, unspecified organism
--- NOTE | 2021-07-01 15:50 | Electrocardiogram Report ---
Test Reason : Blood Pressure : / mmHG Vent. Rate : 097 BPM Atrial Rate : 097 BPM P-R Int : 152 ms QRS Dur : 090 ms QT Int : 352 ms P-R-T Axes : -07 024 040 degrees QTc Int : 447 ms Normal sinus rhythm Nonspecific ST and T wave abnormality Abnormal ECG When compared with ECG of 30-JUN-2021 08:21, Nonspecific T wave abnormality now evident in Anterolateral leads Confirmed by Aramis Fountain ([id number]) on 07/01/2021 3:49:42 PM Referred By: REFERRED SELF Confirmed By:Irvin Fountain
[2021-07-01] MEDS ORDERED: SODIUM CHLORIDE 0.9% 1000ML 1,000 ML IV ONE (15:58)
--- NOTE | 2021-07-01 16:04 | Hospitalist Progress Note ---
Date of Service July 01, 2021 Assessment & Plan (1) Sepsis: (2) Neutropenic fever: (3) LLL pneumonia: (4) Symptomatic anemia: (5) Elevated troponin: (6) MDS (myelodysplastic syndrome): Plan: Patient is a 56 yr female with H/O Breast cancer S/P bilateral mastectomy in 2017, history of ovarian cancer status post IRENA and BSO in 2017, BRCA positive, hypothyroidism and MDS who presents to ED after being referred from [facility] due to chest pain x1 day and low hemoglobin. Sepsis Neutropenic fever Left lower lobe pneumonia Hypoxia Bacteremia Blood Cultures pending ECHO: No significant valvular pathology. IV cefepime and vancomycin>> transition to cefepime, Levaquin sputum culture not contributory Incentive spirometry Samanthaon Franck Consider ID eval IV fluids MDS Symptomatic Anemia Pancytopenia recently dx with MDS Follows Dr. Bae, last chemo ~ 1 month ago S/P PRBCs No obvious signs of bleeding Monitor CBC Troponin Elevation LikelyType II [place] Appreciate Cardiology Input H/O Breast and Ovarian Cancer continue exemestane Hypothyroidism continue Levothyroxine DVT Px:SCDs Re: Anemia, Thrombocytopenia Code Status FULL CODE Admission and Anticipated Discharge Date Admission Date: June 30, 2021 Subjective Patient is seen and examined at bedside States having cough with yellow expectoration Also states chronic dyspnea on exertion Reports nausea, vomiting this morning Febrile today Offers no other complaints Review of Systems Review of Systems: All systems reviewed & are unremarkable except as noted in Subjective Physical Exam Physical Exam: Physical Exam: Vitals signs as noted above General Appearance:Moderately built and nourished, no apparent distress Head: normocephalic, Atraumatic Eyes: normal inspection, EOMI Neck: supple, Trachea midline Respiratory/Chest: Normal breath sounds, CTA, + Port on Right side Cardiovascular: S1, S2, No murmur Abdomen/GI:Soft, Non tender, Bowel sounds present Extremities/Musculoskeletal:normal inspection, no edema Neurologic/Psych:AAOX3, grossly no focal neurological deficits Skin: normal color, warm Results & Data Results & Data ([facility]) Vital Signs (Past 12 Hours) Vital Signs Temp Pulse Pulse Resp BP BP Pulse Ox 07/01/21 15:09 37.6 C H 88 20 95/60 L 95 07/01/21 13:59 37.2 C 07/01/21 12:30 38.3 C H 07/01/21 10:26 38.5 C H 103 H 19 112/69 96 07/01/21 10:12 37.3 C 103 H 20 115/71 07/01/21 09:26 37.5 C 98 H 18 108/66 98 07/01/21 08:56 37.7 C H 98 H 18 100/62 98 07/01/21 08:48 97 H 18 103/61 98 07/01/21 08:34 100 H 18 106/64 07/01/21 08:21 37.1 C 100 H 18 96/53 L 96 07/01/21 08:00 91 H 07/01/21 07:17 37.2 C 91 H 19 101/50 L 92 07/01/21 04:58 38.1 C H 105 H 18 104/65 92 Laboratory Results Short CBC 06/30/21 07/01/21 07/01/21 Range/Units 19:40 05:18 13:56 WBC 0.60 L* (4.8-10.8) K/uL Hgb 6.5 L* 6.6 L* 7.7 L (12.0-16.0) g/dL Hct 19.4 L* 19.6 L* 23.3 L (37-47) % Plt Count 97 L (130-400) K/uL BMP 07/01/21 05:18 Sodium 133 L Potassium 3.5 Chloride 103 Carbon Dioxide 23 BUN 13 Creatinine 0.66 Glucose 110 H Calcium 7.8 L Liver Function 07/01/21 Range/Units 05:18 Total Bilirubin 1.9 H D (0.2-1.0) mg/dl AST 13 (13-39) U/L ALT 15 (7-52) U/L Alkaline Phosphatase 101 (34-104) U/L Albumin 3.2 L (3.4-5.0) gm/dl
[2021-07-01] MEDS: SODIUM CHLORIDE 0.65% NA SOLN 45 ML (OCEAN) PRN (19:41)
[2021-07-01] MEDS: DOCUSATE SODIUM 100 MG CAP PO SCH (20:42)
[2021-07-02] MEDS: CEFEPIME 2,000 MG in SYRINGE 0 ML IV SCH ×3 (00:57→16:21)
[2021-07-02] MEDS: ACETAMINOPHEN 325 MG TAB PO PRN ×2 (03:24→11:20)
[2021-07-02] MEDS: LEVOTHYROXINE SODIUM 112 MCG TABLET PO SCH (05:55)
[2021-07-02 06:20] LABS: BUN Creatinine Ratio 17.5 (10-20); Calcium 7.8 mg/dl (8.5-10.1); Creatinine Clr Calc Pharmacy 117.4 ml/min; Est GFR (Non-African American) 104.4 ml/min; Potassium 3.4 mmol/L (3.5-5.1)
[2021-07-02 06:46] LABS: Hematocrit (blood only) 21.7 % (37-47); Hemoglobin 7.4 g/dL (12.0-16.0); Mean Corpuscular Hemoglobin 31.2 pg (25-34); Mean Corpuscular Volume 91.6 fL (80-100); RDW Coefficient of Variation 20.6 % (11.5-14.5); RDW Standard Deviation 63.8 fL (36.4-46.3); Red Blood Count 2.37 M/uL (4.2-5.4); White Blood Count 0.72 K/uL (4.8-10.8)
[2021-07-02 06:48] LABS: Mean Corpuscular Hgb Conc 34.1 g/dL (32-36); Platelet Count 92 K/uL (130-400)
[2021-07-02 07:09] LABS: Anisocytosis Present; Basophils # (auto) 0.01 K/uL (0-0.2); Basophils % (auto) 1.4 %; Immature Granulocytes # (auto) 0.02 K/uL (0.00-0.02); Immature Granulocytes % (auto) 2.8 %; Lymphocytes # (auto) 0.62 K/uL (1.2-3.4); Lymphocytes % (auto) 86.1 %; Monocytes # (auto) 0.01 K/uL (0.11-0.59); Monocytes % (auto) 1.4 %; Neutrophils # (auto) 0.06 K/uL (1.4-6.5); Neutrophils % (auto) 8.3 %; Ovalocytes 1+; Platelet Estimate Decreased (Normal)
[2021-07-02] MEDS: POLYETHYLENE (MIRALAX) 17 GM PACK PO SCH (08:28)
[2021-07-02] MEDS: CHOLECALCIFEROL 5,000 UNITS 125 MCG TAB PO SCH (08:29)
[2021-07-02] MEDS: CALCIUM 600MG + VIT D 400 IU TAB PO SCH (08:29)
[2021-07-02] MEDS ORDERED: POTASSIUM CHLORIDE CRTAB 20 MEQ TABCR PO ONE (09:11)
[2021-07-02] MEDS: SODIUM CHLORIDE 0.65% NA SOLN 45 ML (OCEAN) PRN (09:47)
[2021-07-02] MEDS: EXEMESTANE 25 MG PO SCH (10:59)
[2021-07-02] MEDS: levoFLOXacin/D5W 750 MG/150 ML BAG IV SCH (11:19)
[2021-07-02] MEDS ORDERED: VANCOMYCIN TROUGH ONE (11:30)
[2021-07-02 12:13] LABS: Creatinine Clr Calc Pharmacy 117.4 ml/min; Est GFR (Non-African American) 104.4 ml/min
--- NOTE | 2021-07-02 17:49 | Hospitalist Progress Note ---
Date of Service July 02, 2021 Assessment & Plan (1) Sepsis: (2) Neutropenic fever: (3) LLL pneumonia: (4) Symptomatic anemia: (5) Elevated troponin: (6) MDS (myelodysplastic syndrome): Plan: Patient is a 56 yr female with H/O Breast cancer S/P bilateral mastectomy in 2017, history of ovarian cancer status post IRENA and BSO in 2017, BRCA positive, hypothyroidism and MDS who presents to ED after being referred from [facility] due to chest pain x1 day and low hemoglobin. Sepsis Neutropenic fever Left lower lobe pneumonia Hypoxia Bacteremia Blood Cultures: Staph species, gram-negative bacilli Repeat cultures negative to date ECHO: No significant valvular pathology. IV cefepime and vancomycin>> transition to cefepime, Levaquin sputum culture not contributory Incentive spirometry Merari Juárez Consulted ID--pending eval IV fluids as needed MDS Symptomatic Anemia Pancytopenia recently dx with MDS Follows Dr. Bae, last chemo ~ 1 month ago S/P PRBCs No obvious signs of bleeding Monitor CBC Troponin Elevation LikelyType II [place] Appreciate Cardiology Input H/O Breast and Ovarian Cancer continue exemestane Hypothyroidism continue Levothyroxine DVT Px:SCDs Re: Anemia, Thrombocytopenia Code Status FULL CODE Admission and Anticipated Discharge Date Admission Date: June 30, 2021 Subjective Patient is seen and examined at bedside Febrile this morning Subjectively feels well Offers no new complaints Less cough today Discussed with patient's daughter over the phone Denies chest pain, dyspnea, nausea, vomiting today Review of Systems Review of Systems: All systems reviewed & are unremarkable except as noted in Subjective Physical Exam Physical Exam: Physical Exam: Vitals signs as noted above General Appearance:Moderately built and nourished, no apparent distress Head: normocephalic, Atraumatic Eyes: normal inspection, EOMI Neck: supple, Trachea midline Respiratory/Chest: Normal breath sounds, CTA, + Port on Right side Cardiovascular: S1, S2, No murmur Abdomen/GI:Soft, Non tender, Bowel sounds present Extremities/Musculoskeletal:normal inspection, no edema Neurologic/Psych:AAOX3, grossly no focal neurological deficits Skin: normal color, warm Results & Data Results & Data ([facility]) Vital Signs (Past 12 Hours) Vital Signs Temp Pulse Pulse Resp BP Pulse Ox Pulse Ox 07/02/21 15:22 37.0 C 88 18 99/59 L 98 07/02/21 15:14 82 07/02/21 12:05 37.6 C H 07/02/21 12:00 95 07/02/21 11:16 39.1 C H 99 H 18 115/69 95 07/02/21 07:19 86 07/02/21 06:39 37.0 C 87 17 99/63 L 95
[2021-07-02] MEDS: DOCUSATE SODIUM 100 MG CAP PO SCH (20:08)
[2021-07-03] MEDS: CEFEPIME 2,000 MG in SYRINGE 0 ML IV SCH ×3 (00:46→16:18)
[2021-07-03] MEDS: LEVOTHYROXINE SODIUM 112 MCG TABLET PO SCH (06:25)
[2021-07-03 06:28] LABS: Mean Corpuscular Hgb Conc 33.7 g/dL (32-36)
[2021-07-03 06:40] LABS: Hematocrit (blood only) 24.3 % (37-47); Hemoglobin 8.2 g/dL (12.0-16.0); Mean Corpuscular Hemoglobin 30.9 pg (25-34); Mean Corpuscular Volume 91.7 fL (80-100); RDW Coefficient of Variation 20.1 % (11.5-14.5); RDW Standard Deviation 63.8 fL (36.4-46.3); Red Blood Count 2.65 M/uL (4.2-5.4); White Blood Count 1.01 K/uL (4.8-10.8)
[2021-07-03 06:52] LABS: Calcium 8.4 mg/dl (8.5-10.1); Creatinine Clr Calc Pharmacy 117.3 ml/min; Est GFR (African American) 120.3 ml/min; Est GFR (Non-African American) 103.8 ml/min; Magnesium 1.5 mg/dl (1.7-2.4); Potassium 3.6 mmol/L (3.5-5.1)
[2021-07-03 06:54] LABS: Anisocytosis Present; Lymphocytes # (auto) 0.75 K/uL (1.2-3.4); Lymphocytes % (auto) 74.3 %; Monocytes # (auto) 0.04 K/uL (0.11-0.59); Neutrophils # (auto) 0.22 K/uL (1.4-6.5); Neutrophils % (auto) 21.7 %; Platelet Count 106 K/uL (130-400); Platelet Estimate Normal (Normal)
[2021-07-03] MEDS: POLYETHYLENE (MIRALAX) 17 GM PACK PO SCH (08:03)
[2021-07-03] MEDS: CALCIUM 600MG + VIT D 400 IU TAB PO SCH (08:05)
[2021-07-03] MEDS: CHOLECALCIFEROL 5,000 UNITS 125 MCG TAB PO SCH (08:05)
[2021-07-03] MEDS ORDERED: MAGNESIUM SULFATE / D5W 1 GM/100 ML BAG IV ONE (09:00)
[2021-07-03] MEDS: EXEMESTANE 25 MG PO SCH (12:02)
[2021-07-03] MEDS: levoFLOXacin/D5W 750 MG/150 ML BAG IV SCH (12:02)
--- NOTE | 2021-07-03 15:35 | Hospitalist Progress Note ---
Date of Service July 03, 2021 Assessment & Plan (1) Sepsis: (2) Neutropenic fever: (3) LLL pneumonia: (4) Symptomatic anemia: (5) Elevated troponin: (6) MDS (myelodysplastic syndrome): Plan: Patient is a 56 yr female with H/O Breast cancer S/P bilateral mastectomy in 2017, history of ovarian cancer status post IRENA and BSO in 2017, BRCA positive, hypothyroidism and MDS who presents to ED after being referred [facility] due to chest pain x1 day and low hemoglobin. Sepsis Neutropenic fever Left lower lobe pneumonia Hypoxia MSSA Bacteremia likely due to Chemo Port Blood Cultures: Staph species, gram-negative bacilli Repeat cultures negative to date ECHO: No significant valvular pathology. IV cefepime and vancomycin>> transition to cefepime, Levaquin>>>>IV cefepime sputum culture not contributory Incentive spirometry Merari Juárez Consulted ID Input IV fluids as needed Port will be removed Will need to complete 2-week course of IV antibiotics. (May need prolonged course if blood cultures remain positive) PICC line placement requested Valacyclovir, fluconazole started prophylactically while patient neutropenic MDS Symptomatic Anemia Pancytopenia recently dx with MDS Follows Dr. Bae, last chemo ~ 1 month ago S/P PRBCs No obvious signs of bleeding Monitor CBC Pancytopenia slowly improving Troponin Elevation LikelyType II [place] Appreciate Cardiology Input H/O Breast and Ovarian Cancer continue exemestane Hypothyroidism continue Levothyroxine DVT Px:SCDs Re: Anemia, Thrombocytopenia Code Status FULL CODE Admission and Anticipated Discharge Date Admission Date: June 30, 2021 Subjective Patient is seen and examined at bedside Less cough today Afebrile today Pancytopenia slowly improving No new complaints Denies chest pain, dyspnea, nausea, vomiting Review of Systems Review of Systems: All systems reviewed & are unremarkable except as noted in Subjective Physical Exam Physical Exam: Physical Exam: Vitals signs as noted above General Appearance:Moderately built and nourished, no apparent distress Head: normocephalic, Atraumatic Eyes: normal inspection, EOMI Neck: supple, Trachea midline Respiratory/Chest: Normal breath sounds, CTA, + Port on Right side Cardiovascular: S1, S2, No murmur Abdomen/GI:Soft, Non tender, Bowel sounds present Extremities/Musculoskeletal:normal inspection, no edema Neurologic/Psych:AAOX3, grossly no focal neurological deficits Skin: normal color, warm Results & Data Results & Data ([facility]) Vital Signs (Past 12 Hours) Vital Signs Temp Pulse Resp BP Pulse Ox 07/03/21 11:46 36.8 C 83 18 106/67 100 07/03/21 07:29 36.7 C 80 16 102/66 95 07/03/21 04:55 37.1 C 93 H 18 101/62 94 Laboratory Results Short CBC 07/03/21 Range/Units 05:57 WBC 1.01 L (4.8-10.8) K/uL Hgb 8.2 L (12.0-16.0) g/dL Hct 24.3 L (37-47) % Plt Count 106 L (130-400) K/uL BMP 07/03/21 05:57 Sodium 133 L Potassium 3.6 Chloride 100 Carbon Dioxide 24 BUN 11 Creatinine 0.58 L Glucose 105 H Calcium 8.4 L
[2021-07-03] MEDS: ACETAMINOPHEN 325 MG TAB PO PRN (16:15)
[2021-07-03] MEDS: valACYclovir HCL 500 MG TABLET PO SCH (16:38)
[2021-07-03] MEDS: FLUCONAZOLE 100 MG TAB PO SCH (17:12)
--- NOTE | 2021-07-03 17:22 | XRay Report ---
XR chest 1V portable CLINICAL HISTORY: Atypical chest pain. COMPARISON STUDY: Chest radiograph June 30, 2021. PET/CT June 22, 2016. FINDINGS: Right sided [id number] is in place. There is no pneumothorax. There are small bilateral pleural effusions. Patchy bibasilar opacities are present. Cardiomegaly is noted. No evidence for pul monary edema. IMPRESSION: Small bilateral pleural effusions. Patchy bibasilar opacities which could reflect an infe ctious process or atelectasis. ACT 112: Negative or not required by law. Electronically signed by: Delmer Carey M.D. 07/03/2021 5:20 PM
--- NOTE | 2021-07-03 19:04 | Surgery Consultation ---
Date of Consultation July 03, 2021 Assessment & Plan (1) Sepsis: (2) Neutropenia: (3) Positive blood culture: (4) Anemia: (5) Pneumonia: 56-year-old woman presents with neutropenic sepsis. She is febrile, has neutropenia, tachycardic and tachypneic. Blood cultures have grown MSSA. She has an indwelling port. I discussed with her the risks and benefits of removal of the port. All her questions were answered, she is agreeable to proceed. We will take her to the OR tomorrow for removal of the port under sedation. History of Present Illness Requesting Physician: Nicanor Lindsey MD Attending Physician: Nicanor Lindsey MD History of Present Illness 56-year-old woman presents with neutropenic sepsis. She has past medical history of breast cancer status post bilateral mastectomy in 2017, history of ovarian cancer status post IRENA/BSO in 2017. BRCA positive. She presented to the [facility] department [facility] due to chest pain and low hemoglobin. She reports fatigue with dyspnea on exertion, productive cough, and chills. Blood cultures were drawn and she was given transfusion. She was febrile with temperature to 39.0, tachycardic and tachypneic. She is pancytopenic with an ANC less than 500. Chest x-ray demonstrated cardiomegaly with few bibasilar linear densities. Blood cultures have grown MSSA. Infectious disease was consulted and has requested a consult from general surgery to remove the indwelling port. Allergies Allergy/AdvReac Type Severity Reaction Status Date / Time No Known Allergies Allergy Verified 06/30/21 09:33 Home Medications Medication Instructions Recorded Confirmed Type azacitidine 100 mg solution for 150 mg SUBCUT UD 06/30/21 06/30/21 History injection calcium carbonate 600 mg-vitamin 1 tab PO QAM 06/30/21 06/30/21 History D3 5 mcg (200 unit) tablet (Calcium 600 + D(3)) cholecalciferol (vitamin D3) 125 125 mcg PO QAM 06/30/21 06/30/21 History mcg (5,000 unit) tablet (Vitamin D3) exemestane 25 mg tablet 25 mg PO QAM 06/30/21 06/30/21 History levothyroxine 112 mcg tablet 112 mcg PO DAILYBB 06/30/21 06/30/21 History ondansetron HCl 8 mg tablet 8 mg PO Q6H PRN 06/30/21 06/30/21 History prochlorperazine maleate 10 mg 10 mg PO Q6H PRN 06/30/21 06/30/21 History tablet zinc 50 mg tablet 0 mg PO QAM 06/30/21 06/30/21 History Patient History Medical History BRCA gene mutation positive Cancer of central portion of right female breast (06/08/16) Hx of breast cancer hx 2017 s/p b/l masectomy, XRT and chemo Hx of ovarian cancer IRENA BSO 01/2017 Hypothyroidism Surgical History History of bilateral mastectomy History of cataract extraction History of total abdominal hysterectomy and bilateral salpingo-oophorectomy Hx of colonoscopy with polypectomy last c scope 05/2021 WNL Family History Other Breast cancer Diabetes Social History Smoking Status: Never smoker Hx Alcohol Use: Yes Alcohol type: wine Alcohol Intake Frequency: Monthly or Less Hx Substance Use: No Preferred Language: Setswana Communication Ability: Effective Study Coordinator Required: No Beliefs That Will Affect Care: None marital status: Current Living Situation: Spouse Other Information That Helps Us Care for You: No Feels Safe at Home: Yes Safety Concerns: Feels Safe At This Time Assistive Devices: None Review of Systems Review of Systems: All systems reviewed & are unremarkable except as noted in HPI & below Physical Exam Constitutional: WD/WN, vitals as above Neck: trachea midline, no thyromegaly Respiratory: normal respiratory effort; no respiratory distress and no labored breathing Cardiovascular: Rate/Rhythm: regular rate and regular rhythm Chest (Breasts): Additional Comments: Access port right upper chest, no erythema/induration Gastrointestinal (Abdomen): Inspection/Auscultation: abdomen normal to inspection; abdomen not distended Musculoskeletal: Extremities: no cyanosis and no clubbing Skin: no rashes, warm and dry Psychiatric: A+Ox3, euthymic affect Results & Data ([facility]) Vital Signs (Past 12 Hours) Vital Signs Temp Pulse Resp BP Pulse Ox 07/03/21 16:16 38.6 C H 98 H 18 113/71 94 07/03/21 11:46 36.8 C 83 18 106/67 100 07/03/21 07:29 36.7 C 80 16 102/66 95 Laboratory Results 07/03/21 07/03/21 Range/Units 05:57 05:57 WBC 1.01 L (4.8-10.8) K/uL RBC 2.65 L (4.2-5.4) M/uL Hgb 8.2 L (12.0-16.0) g/dL Hct 24.3 L (37-47) % MCV 91.7 (80-100) fL MCH 30.9 (25-34) pg MCHC 33.7 (32-36) g/dL RDW Std Deviation 63.8 H (36.4-46.3) fL RDW Coeff of Karey 20.1 H (11.5-14.5) % Plt Count 106 L (130-400) K/uL Immature Gran % (Auto) 0.0 % Neut % (Auto) 21.7 % Lymph % (Auto) 74.3 % Edgar % (Auto) 4.0 % Eos % (Auto) 0.0 % Baso % (Auto) 0.0 % Neut # (Auto) 0.22 L* (1.4-6.5) K/uL Lymph # (Auto) 0.75 L (1.2-3.4) K/uL Edgar # (Auto) 0.04 L (0.11-0.59) K/uL Eos # (Auto) 0.00 (0-0.5) K/uL Baso # (Auto) 0.00 (0-0.2) K/uL Immature Gran # (Auto) 0.00 (0.00-0.02) K/uL Platelet Estimate Normal (Normal) Anisocytosis Present Sodium 133 L (136-145) mmol/L Potassium 3.6 (3.5-5.1) mmol/L Chloride 100 (98-107) mmol/L Carbon Dioxide 24 (21-32) mmol/L Anion Gap 9 (3-11) BUN 11 (6-23) mg/dl Creatinine 0.58 L (0.6-1.2) mg/dl Est Cr Clr Drug Dosing 117.3 ml/min Est GFR ( Amer) 120.3 ml/min Est GFR (Non-Af Amer) 103.8 ml/min BUN/Creatinine Ratio 19.0 (10-20) Glucose 105 H (70-99(Fasting)) mg/dl Calcium 8.4 L (8.5-10.1) mg/dl Magnesium 1.5 L (1.7-2.4) mg/dl (1) Sepsis Sepsis acute organ dysfunction status: without acute organ dysfunction Sepsis type: sepsis due to unspecified organism Qualified Code(s): A41.9 - Sepsis, unspecified organism (2) Neutropenia Neutropenia type: unspecified Qualified Code(s): D70.9 - Neutropenia, unspecified (3) Anemia Anemia type: unspecified type Qualified Code(s): D64.9 - Anemia, unspecified (4) Pneumonia Laterality: left Lung location: lower lobe of lung Pneumonia type: due to unspecified organism Qualified Code(s): J18.9 - Pneumonia, unspecified organism
[2021-07-03] MEDS: DOCUSATE SODIUM 100 MG CAP PO SCH (20:41)
[2021-07-04] MEDS: CEFEPIME 2,000 MG in SYRINGE 0 ML IV SCH ×3 (00:41→17:11)
[2021-07-04 05:47] LABS: Mean Corpuscular Hgb Conc 33.5 g/dL (32-36)
[2021-07-04 05:54] LABS: Hematocrit (blood only) 23.3 % (37-47); Hemoglobin 7.8 g/dL (12.0-16.0); Mean Corpuscular Hemoglobin 31.2 pg (25-34); Mean Corpuscular Volume 93.2 fL (80-100); RDW Coefficient of Variation 19.5 % (11.5-14.5); RDW Standard Deviation 63.5 fL (36.4-46.3); White Blood Count 1.27 K/uL (4.8-10.8)
[2021-07-04] MEDS: LEVOTHYROXINE SODIUM 112 MCG TABLET PO SCH (06:00)
[2021-07-04 06:15] LABS: BUN Creatinine Ratio 19.4 (10-20); Calcium 8.4 mg/dl (8.5-10.1); Creatinine Clr Calc Pharmacy 109.2 ml/min; Est GFR (African American) 117.7 ml/min; Est GFR (Non-African American) 101.5 ml/min; Magnesium 1.6 mg/dl (1.7-2.4); Potassium 3.7 mmol/L (3.5-5.1)
[2021-07-04 06:30] LABS: Dohle Bodies 1+; Giant Platelets 1+; Immature Granulocytes # (auto) 0.01 K/uL (0.00-0.02); Immature Granulocytes % (auto) 0.8 %; Monocytes # (auto) 0.03 K/uL (0.11-0.59); Monocytes % (auto) 2.4 %; Neutrophils # (auto) 0.43 K/uL (1.4-6.5); Neutrophils % (auto) 33.8 %; Platelet Count 109 K/uL (130-400); Platelet Estimate Decreased (Normal); Toxic Granulation 1+
[2021-07-04] MEDS ORDERED: LIDOCAINE 1% LOCAL 20 ML VIAL ONE (07:10)
[2021-07-04] MEDS ORDERED: ceFAZolin 330 MG/ML 1 GM VIAL ONE (07:11)
--- NOTE | 2021-07-04 07:18 | History & Physical Bridge Note ---
Date of Service July 04, 2021 History & Physical Bridge Note I have examined the patient, reviewed the History & Physical and in the interval since the performance of the History & Physical I have noted the following changes of clinical significance: no changes noted. 1 with infected access port. Discussed the risks and benefits of removal of the access port. She is agreeable to proceed. Consent has been obtained.
[2021-07-04] MEDS ORDERED: ONDANSETRON INJ 2 MG/ML 2 ML VIAL ONE (07:22)
[2021-07-04] MEDS ORDERED: PROPOFOL IV EMULSION 10 MG/ML 20 ML VIAL IV ONE ×2 (07:22→07:24)
[2021-07-04] MEDS ORDERED: DEXAMETHASONE SOD INJ 4 MG/ML VIAL ONE (07:22)
[2021-07-04] MEDS ORDERED: MIDAZOLAM HCL 1 MG/ML 2ML VIAL ONE (07:22)
[2021-07-04] MEDS ORDERED: fentaNYL citrate 100 MCG/2 ML VIAL ONE (07:22)
[2021-07-04] MEDS ORDERED: LIDOCAINE 2% 2 ML VIAL/AMP(20MG/ML) INFIL ONE (07:22)
[2021-07-04] MEDS ORDERED: ONDANSETRON INJ 2 MG/ML 2 ML VIAL IV PRN (07:44)
[2021-07-04] MEDS ORDERED: ATROPINE SULFATE 0.1 MG/ML 10ML SYR IV PRN (07:44)
[2021-07-04] MEDS ORDERED: ePHEDrine sulfate 50 MG/ML AMP IV PRN (07:44)
[2021-07-04] MEDS ORDERED: fentaNYL citrate 100 MCG/2 ML VIAL IV PRN (07:44)
--- NOTE | 2021-07-04 07:44 | Anesthesiology Consultation ---
Date of Service July 04, 2021 Assessment & Plan ASA ASA3 Proposed Anesthesia Anesthesia Type: MAC Risk / Benefits Reviewed With: PT / POA / Parent / Guardian, Accepts Plan and Informed Consent Obtained History Surgery Operation Date: 07/04/21 07:30 Proposed Procedures p Infusaport Removal - Joel Sawyer MD Height/Weight Height: 5 ft 4 in Weight: 86.6 kg Allergies Allergy/AdvReac Type Severity Reaction Status Date / Time No Known Allergies Allergy Verified 06/30/21 09:33 Medications Home Medications Medication Instructions Recorded Confirmed Last Taken azacitidine 100 mg solution for 150 mg SUBCUT UD 06/30/21 06/30/21 06/09/21 injection calcium carbonate 600 mg-vitamin 1 tab PO QAM 06/30/21 06/30/21 06/30/21 D3 5 mcg (200 unit) tablet (Calcium 600 + D(3)) cholecalciferol (vitamin D3) 125 125 mcg PO QAM 06/30/21 06/30/21 06/30/21 mcg (5,000 unit) tablet (Vitamin D3) exemestane 25 mg tablet 25 mg PO QAM 06/30/21 06/30/21 06/30/21 levothyroxine 112 mcg tablet 112 mcg PO DAILYBB 06/30/21 06/30/21 06/30/21 ondansetron HCl 8 mg tablet 8 mg PO Q6H PRN 06/30/21 06/30/21 Unknown prochlorperazine maleate 10 mg 10 mg PO Q6H PRN 06/30/21 06/30/21 Unknown tablet zinc 50 mg tablet 0 mg PO QAM 06/30/21 06/30/21 06/30/21 Active Medications Generic Name Dose Route Start Last Admin Trade Name Freq PRN Reason Stop Dose Admin Acetaminophen 650 mg 06/30/21 12:02 07/03/21 16:15 Acetaminophen 325 Mg Tab PO 07/30/21 12:01 650 mg Q4H PRN Administration Pain or Fever Docusate Sodium 100 mg 06/30/21 21:00 07/03/21 20:41 Docusate Sodium 100 Mg Cap PO 07/30/21 20:59 100 mg HS SHAUNA Administration Exemestane 1 ea 07/01/21 11:00 07/03/21 12:02 Exemestane 25mg PO 07/31/21 10:59 1 ea Q24H SHAUNA Administration Fluconazole 400 mg 07/03/21 15:45 07/03/21 17:12 Fluconazole 100 Mg Tab PO 08/02/21 15:44 400 mg DAILY SHAUNA Administration Cefepime HCl 2,000 mg/ Syringe 20 mls @ 5 mls/min 06/30/21 17:00 07/04/21 00:41 IV 07/14/21 16:59 5 mls/min Q8H SHAUNA Administration Levothyroxine Sodium 112 mcg 07/01/21 06:30 07/04/21 06:00 Levothyroxine Sodium 112 Mcg Tablet PO 07/31/21 06:29 112 mcg DAILYBB SHAUNA Administration Multivitamins/Minerals 1 tab 07/01/21 09:00 07/03/21 08:05 Calcium 600mg + Vit D 400 Iu Tab PO 07/31/21 08:59 1 tab QAM SHAUNA Administration Ondansetron HCl 4 mg 06/30/21 12:02 07/01/21 11:24 Ondansetron Inj 2 Mg/Ml 2 Ml Vial IV 07/30/21 12:01 4 mg Q6H PRN Administration Nausea Polyethylene Glycol 17 gm 07/01/21 09:00 07/03/21 08:03 Polyethylene (Miralax) 17 Gm Pack PO 07/31/21 08:59 Not Given DAILY SHAUNA Sodium Chloride 2 sprays 07/01/21 15:23 07/02/21 09:47 Sodium Chloride 0.65% Na Soln 45 Ml (Josephine) NA 07/31/21 15:22 2 sprays BID PRN Administration Dryness Valacyclovir HCl 500 mg 07/03/21 15:45 07/03/21 16:38 Valacyclovir Hcl 500 Mg Tablet PO 08/02/21 15:44 500 mg DAILY SHAUNA Administration Vitamin D 5,000 units 07/01/21 09:00 07/03/21 08:05 Cholecalciferol 5,000 Units 125 Mcg Tab PO 07/31/21 08:59 5,000 units QAM SHAUNA Administration NPO Date Last Intake of Fluids: 07/04/21 Time Last Intake of Fluids: 00:00 Date Last Intake of Solids: 07/04/21 Time Last Intake of Solids: 00:00 Past Medical History Medical History BRCA gene mutation positive Cancer of central portion of right female breast (06/08/16) Hx of breast cancer hx 2017 s/p b/l masectomy, XRT and chemo Hx of ovarian cancer IRENA BSO 01/2017 Hypothyroidism Exercise / Class Metabolic Activity II 4-5 Yardwork/Stairs/Walk up hill Past Family History Family History Other Breast cancer Diabetes Past Surgical History Surgical History History of bilateral mastectomy History of cataract extraction History of total abdominal hysterectomy and bilateral salpingo-oophorectomy Hx of colonoscopy with polypectomy last c scope 05/2021 WNL Past Anesthesia History No Hx of Anesthesia Complications and No Family Hx of Anesthesia Complications History of PONV No Hx of PONV and No Hx of Motion Sickness Social History Smoking Status: Never smoker Hx Alcohol Use: Yes Alcohol type: wine Hx Substance Use: No Review of Systems denies fever/cough/ colds/ chest pain/ SOB/ BHARGAVI denies BHARGAVI Physical Exam Vital Signs Last Vital Signs Temp 37.2 C 07/04/21 07:28 Pulse 98 H 07/04/21 07:28 Resp 16 07/04/21 07:28 BP 104/68 07/04/21 07:28 Pulse Ox 94 07/04/21 07:28 ENMT Mouth: no TMJ abnormality and no dentition abnormality Thyromental Distance: > or= 3.5 Finger Breadths Mallampati Class: II Neck neck extension not limited Respiratory normal respiratory effort; no respiratory distress Auscultation: lungs clear to auscultation bilaterally Cardiovascular Rate/Rhythm: regular rate and regular rhythm Neurologic moves all extremities Psychiatric Orientation: alert and oriented x 3 Testing Laboratory Results 07/04/21 05:25 07/04/21 05:25 PT 13.5 Seconds (9.0-12.0) H 06/30/21 08:33 INR 1.3 (0.9-1.1) H 06/30/21 08:33 APTT > 139.0 Seconds (21.0-31.0) H* 06/30/21 08:33 Hemoglobin A1c 5.7 % (4.5-5.6) H 07/01/21 05:18 Urine Color [place] 06/30/21 10:53 Urine Appearance Clear (Clear) 06/30/21 10:53 Urine pH 6.0 (4.5-7.5) 06/30/21 10:53 Ur Specific [place] 1.022 (1.000-1.030) 06/30/21 10:53 Urine Protein 2+ (Negative) H 06/30/21 10:53 Urine Glucose (UA) Negative (Negative) 06/30/21 10:53 Urine Ketones Trace (Negative) H 06/30/21 10:53 Urine Nitrite Negative (Negative) 06/30/21 10:53 Ur Leukocyte Esterase Trace (Negative) H 06/30/21 10:53 Urine WBC (Auto) 5-10 /hpf (0-5) H 06/30/21 10:53 Urine RBC (Auto) 0-4 /hpf (0-4) 06/30/21 10:53 U Hyaline Cast (Auto) 5-10 /lpf (0-5) H 06/30/21 10:53 U Epithel Cells (Auto) >30 /lpf (0-5) H 06/30/21 10:53 Urine Bacteria (Auto) Negative (Negative) 06/30/21 10:53 Blood Type Cancelled 07/01/21 05:18 Antibody Screen Cancelled 07/01/21 05:18 06/30/21 08:50 Aerobic Blood Culture - Preliminary Blood No growth in Aerobic bottle after 48 hours. Anaerobic Blood Culture - Preliminary No growth in Anaerobic bottle after 48 hours. 06/30/21 08:33 Aerobic Blood Culture - Preliminary Blood No growth in Aerobic bottle after 48 hours. Anaerobic Blood Culture - Preliminary No growth in Anaerobic bottle after 48 hours. 07/01/21 Unknown Gram Stain - Final Sputum, Expectorated Sputum Culture - Final
--- NOTE | 2021-07-04 08:12 | Post Operative Brief Note ---
Immediate Post Op Note v1 Date of Surgery July 04, 2021 Pre & Post Diagnosis Operation Date: 07/04/21 07:30 <No data on this case meets the specified criteria> I identified the patient and participated in the time-out.: Yes Procedure Operation Date: 07/04/21 07:30 <No data on this case meets the specified criteria> Surgeon Joel Sawyer MD Grants Manager None Estimated Blood Loss 2 Findings Consistent with Post-Op Diagnosis
--- NOTE | 2021-07-04 08:15 | Operative Report ---
Post Operative Report Pre & Post Diagnosis Operation Date: 07/04/21 07:30 <No data on this case meets the specified criteria> I identified the patient and participated in the time-out.: Yes Procedure Operation Date: 07/04/21 07:30 <No data on this case meets the specified criteria> Surgeon Joel Sawyer MD Disc Pad Grinding Machine Feeder None Estimated Blood Loss 2 Findings Consistent with Post-Op Diagnosis Specimens Access port Anesthesia Type MAC Description of Procedure Patient was taken to the operating room, placed supine on the operating table. A timeout was performed, SCD boots were placed. After adequate anesthesia and analgesia was obtained, the area was prepped and draped in the normal sterile fashion. 1% lidocaine was injected into and around the area of the port. An incision was made with 15 blade scalpel and carried down to the level of subcutaneous tissue. The port was identified and dissected free circumferentially with blunt dissection. The port was removed and the catheter was withdrawn. Pressure was held to avoid backbleeding. The port was sent off the field for specimen. Attention was turned hemostasis which was excellent. Subcutaneous tissue was closed with 3-0 Vicryl. The skin was closed with a running 4 Monocryl subcuticular stitch. Dermabond was applied. She tolerated the procedure without complication, was transferred in stable condition to the PACU. All instrument, needle, and sponge counts were correct at the end of the case. I attest to the content of the Intraoperative Record and any orders documented therein. Any exceptions are noted below.
[2021-07-04] MEDS ORDERED: MAGNESIUM SULFATE / D5W 1 GM/100 ML BAG IV ONE (08:30)
[2021-07-04] MEDS: FLUCONAZOLE 100 MG TAB PO SCH (09:47)
[2021-07-04] MEDS: CHOLECALCIFEROL 5,000 UNITS 125 MCG TAB PO SCH (09:47)
[2021-07-04] MEDS: valACYclovir HCL 500 MG TABLET PO SCH (09:47)
[2021-07-04] MEDS: POLYETHYLENE (MIRALAX) 17 GM PACK PO SCH (09:48)
[2021-07-04] MEDS: CALCIUM 600MG + VIT D 400 IU TAB PO SCH (09:48)
[2021-07-04] MEDS: EXEMESTANE 25 MG PO SCH (11:14)
--- NOTE | 2021-07-04 11:34 | Electrocardiogram Report ---
Test Reason : Blood Pressure : / mmHG Vent. Rate : 102 BPM Atrial Rate : 102 BPM P-R Int : 146 ms QRS Dur : 088 ms QT Int : 350 ms P-R-T Axes : 000 018 043 degrees QTc Int : 456 ms Sinus tachycardia Otherwise normal ECG When compared with ECG of 01-JUL-2021 13:06, No significant change was found Confirmed by Marcial Arango ([id number]) on 07/04/2021 11:34:26 AM Referred By: REFERRED SELF Confirmed By:Marcial Arango
--- NOTE | 2021-07-04 11:43 | Anesthesiology Progress Note ---
Date of Service July 04, 2021 Anesthesia Post Procedure Vital Signs Vital Signs: Temp Pulse Pulse Pulse Resp BP Pulse Ox 07/04/21 11:10 36.5 C 97 H 16 95/63 L 98 07/04/21 09:45 36.7 C 95 H 18 93/59 L 95 07/04/21 09:12 36.9 C 80 12 94/59 L 94 07/04/21 08:57 88 21 92/57 L 95 07/04/21 08:45 36.1 C L 89 21 90/58 L 93 07/04/21 08:35 87 21 102/58 L 98 07/04/21 08:25 87 22 87/50 L 98 07/04/21 08:24 92 H 07/04/21 08:19 36.2 C L 87 20 82/54 L 98 07/04/21 07:28 37.2 C 98 H 16 104/68 94 07/04/21 04:31 37.4 C 111 H 18 97/67 L 96 07/04/21 02:21 36.9 C 07/03/21 23:44 37.7 C H 106 H 109/72 94 07/03/21 22:18 97 H 07/03/21 19:56 37.4 C 97 H 18 102/66 96 07/03/21 16:16 38.6 C H 98 H 18 113/71 94 07/03/21 11:46 36.8 C 83 18 106/67 100 Transfer of Care Handoff Completed per policy Notes Mental Status: alert / awake / arousable and participated in evaluation Patient Amnestic to Procedure: Yes Nausea / Vomiting: adequately controlled Pain: adequately controlled Airway Patency, RR, SpO2: stable & adequate BP & HR: stable & adequate Hydration State: stable & adequate Anesthetic Complications: no major complications apparent and Pt Satisfied with anesthetic care
--- NOTE | 2021-07-04 14:10 | Hospitalist Progress Note ---
Date of Service July 04, 2021 Assessment & Plan (1) Sepsis: (2) Neutropenic fever: (3) LLL pneumonia: (4) Symptomatic anemia: (5) Elevated troponin: (6) MDS (myelodysplastic syndrome): Plan: Patient is a 56 yr female with H/O Breast cancer S/P bilateral mastectomy in 2017, history of ovarian cancer status post IRENA and BSO in 2017, BRCA positive, hypothyroidism and MDS who presents to ED after being referred [facility] due to chest pain x1 day and low hemoglobin. Sepsis Neutropenic fever Left lower lobe pneumonia Hypoxia MSSA Bacteremia likely due to Chemo Port Blood Cultures: Staph species, gram-negative bacilli Repeat cultures negative to date ECHO: No significant valvular pathology. IV cefepime and vancomycin>> transition to cefepime, Levaquin>>>>IV cefepime sputum culture not contributory Incentive spirometry Appreciate ID Input IV fluids as needed Chemo Port removed--Appreciate Surgery Input Will need to complete 2-week course of IV antibiotics. (May need prolonged course if blood cultures remain positive) USG line placed on 07/03/21 Valacyclovir, fluconazole started prophylactically while patient neutropenic--Will DC once neutropenia resolves Afebrile today MDS Symptomatic Anemia Pancytopenia recently dx with MDS Follows Dr. Bae, last chemo ~ 1 month ago S/P PRBCs No obvious signs of bleeding Monitor CBC Pancytopenia improving Troponin Elevation LikelyType II [place] Appreciate Cardiology Input H/O Breast and Ovarian Cancer continue exemestane Hypothyroidism continue Levothyroxine DVT Px:SCDs Re: Anemia, Thrombocytopenia Code Status FULL CODE Admission and Anticipated Discharge Date Admission Date: June 30, 2021 Subjective Patient is seen and examined at bedside Had chemo port removal this morning States feeling well No new complaints Afebrile today Denies chest pain, dyspnea, nausea, vomiting Cough continues to improve Review of Systems Review of Systems: All systems reviewed & are unremarkable except as noted in Subjective Physical Exam Physical Exam: Physical Exam: Vitals signs as noted above General Appearance:Moderately built and nourished, no apparent distress Head: normocephalic, Atraumatic Eyes: normal inspection, EOMI Neck: supple, Trachea midline Respiratory/Chest: Normal breath sounds, Basal Crackles Cardiovascular: S1, S2, No murmur Abdomen/GI:Soft, Non tender, Bowel sounds present Extremities/Musculoskeletal:normal inspection, no edema Neurologic/Psych:AAOX3, grossly no focal neurological deficits Skin: normal color, warm Results & Data Results & Data ([facility]) Vital Signs (Past 12 Hours) Vital Signs Temp Pulse Pulse Pulse Resp BP Pulse Ox 07/04/21 12:00 07/04/21 11:10 36.5 C 97 H 16 95/63 L 98 07/04/21 09:45 36.7 C 95 H 18 93/59 L 95 07/04/21 09:12 36.9 C 80 12 94/59 L 94 07/04/21 08:57 88 21 92/57 L 95 07/04/21 08:45 36.1 C L 89 21 90/58 L 93 07/04/21 08:35 87 21 102/58 L 98 07/04/21 08:25 87 22 87/50 L 98 07/04/21 08:24 92 H 07/04/21 08:19 36.2 C L 87 20 82/54 L 98 07/04/21 07:28 37.2 C 98 H 16 104/68 94 07/04/21 04:31 37.4 C 111 H 18 97/67 L 96 07/04/21 02:21 36.9 C Pulse Ox 07/04/21 12:00 98 07/04/21 11:10 07/04/21 09:45 07/04/21 09:12 07/04/21 08:57 07/04/21 08:45 07/04/21 08:35 07/04/21 08:25 07/04/21 08:24 07/04/21 08:19 07/04/21 07:28 07/04/21 04:31 07/04/21 02:21 Laboratory Results Short CBC 07/04/21 Range/Units 05:25 WBC 1.27 L (4.8-10.8) K/uL Hgb 7.8 L (12.0-16.0) g/dL Hct 23.3 L (37-47) % Plt Count 109 L (130-400) K/uL BMP 07/04/21 05:25 Sodium 134 L Potassium 3.7 Chloride 100 Carbon Dioxide 28 BUN 12 Creatinine 0.62 Glucose 101 H Calcium 8.4 L
[2021-07-04] MEDS: ACETAMINOPHEN 325 MG TAB PO PRN (15:34)
[2021-07-04] MEDS: DOCUSATE SODIUM 100 MG CAP PO SCH (21:33)
[2021-07-05] MEDS: CEFEPIME 2,000 MG in SYRINGE 0 ML IV SCH ×3 (01:39→17:15)
[2021-07-05] MEDS: LEVOTHYROXINE SODIUM 112 MCG TABLET PO SCH (06:04)
[2021-07-05 07:20] LABS: Mean Corpuscular Hgb Conc 32.7 g/dL (32-36)
[2021-07-05 07:43] LABS: BUN Creatinine Ratio 19.6 (10-20); Calcium 8.5 mg/dl (8.5-10.1); Creatinine Clr Calc Pharmacy 120.3 ml/min; Est GFR (African American) 121.7 ml/min; Potassium 4.6 mmol/L (3.5-5.1)
[2021-07-05 07:45] LABS: Hematocrit (blood only) 24.5 % (37-47); Mean Corpuscular Hemoglobin 30.9 pg (25-34); Mean Corpuscular Volume 94.6 fL (80-100); RDW Coefficient of Variation 20.1 % (11.5-14.5); RDW Standard Deviation 65.6 fL (36.4-46.3); Red Blood Count 2.59 M/uL (4.2-5.4); White Blood Count 1.61 K/uL (4.8-10.8)
[2021-07-05] MEDS: ACETAMINOPHEN 325 MG TAB PO PRN (07:47)
[2021-07-05] MEDS: POLYETHYLENE (MIRALAX) 17 GM PACK PO SCH (07:48)
[2021-07-05] MEDS: CALCIUM 600MG + VIT D 400 IU TAB PO SCH (07:50)
[2021-07-05] MEDS: FLUCONAZOLE 100 MG TAB PO SCH (07:51)
[2021-07-05] MEDS: CHOLECALCIFEROL 5,000 UNITS 125 MCG TAB PO SCH (07:51)
[2021-07-05] MEDS: valACYclovir HCL 500 MG TABLET PO SCH (07:51)
[2021-07-05 07:56] LABS: Platelet Count 121 K/uL (130-400)
[2021-07-05 08:02] LABS: Anisocytosis Present; Immature Granulocytes # (auto) 0.01 K/uL (0.00-0.02); Immature Granulocytes % (auto) 0.6 %; Lymphocytes # (auto) 0.91 K/uL (1.2-3.4); Lymphocytes % (auto) 56.5 %; Monocytes % (auto) 6.2 %; Neutrophils # (auto) 0.59 K/uL (1.4-6.5); Neutrophils % (auto) 36.7 %; Platelet Estimate Decreased (Normal); Toxic Granulation 2+
[2021-07-05] MEDS: EXEMESTANE 25 MG PO SCH (11:07)
--- NOTE | 2021-07-05 15:02 | Hospitalist Progress Note ---
Date of Service July 05, 2021 Assessment & Plan (1) Sepsis: (2) Neutropenic fever: (3) LLL pneumonia: (4) Symptomatic anemia: (5) Elevated troponin: (6) MDS (myelodysplastic syndrome): Plan: Patient is a 56 yr female with H/O Breast cancer S/P bilateral mastectomy in 2017, history of ovarian cancer status post IRENA and BSO in 2017, BRCA positive, hypothyroidism and MDS who presents to ED after being referred [facility] due to chest pain x1 day and low hemoglobin. Sepsis Neutropenic fever Left lower lobe pneumonia Hypoxia MSSA Bacteremia likely due to Chemo Port Blood Cultures: Staph species, gram-negative bacilli Repeat cultures negative to date ECHO: No significant valvular pathology. IV cefepime and vancomycin>> transition to cefepime, Levaquin>>>>IV cefepime sputum culture not contributory Incentive spirometry Appreciate ID Input IV fluids as needed Chemo Port removed--Appreciate Surgery Input Will need to complete 2-week course of IV antibiotics. (May need prolonged course if blood cultures remain positive) USG line placed on 07/03/21 Valacyclovir, fluconazole started prophylactically while patient neutropenic--Will DC once neutropenia resolves Remains Afebrile Likely discharge in next 24-48 hours if remains stable MDS Symptomatic Anemia Pancytopenia recently dx with MDS Follows Dr. Bae, last chemo ~ 1 month ago S/P PRBCs No obvious signs of bleeding Monitor CBC Pancytopenia improving Troponin Elevation LikelyType II [place] Appreciate Cardiology Input H/O Breast and Ovarian Cancer continue exemestane Hypothyroidism continue Levothyroxine DVT Px:SCDs Re: Anemia, Thrombocytopenia Code Status FULL CODE Admission and Anticipated Discharge Date Admission Date: June 30, 2021 Subjective Patient is seen and examined at bedside Doing well today Eager to get discharged No complaints Afebrile today Denies chest pain, dyspnea, nausea, vomiting Review of Systems Review of Systems: All systems reviewed & are unremarkable except as noted in Subjective Physical Exam Physical Exam: Physical Exam: Vitals signs as noted above General Appearance:Moderately built and nourished, no apparent distress Head: normocephalic, Atraumatic Eyes: normal inspection, EOMI Neck: supple, Trachea midline Respiratory/Chest: Normal breath sounds, Basal Crackles Cardiovascular: S1, S2, No murmur Abdomen/GI:Soft, Non tender, Bowel sounds present Extremities/Musculoskeletal:normal inspection, no edema Neurologic/Psych:AAOX3, grossly no focal neurological deficits Skin: normal color, warm Results & Data Results & Data ([facility]) Vital Signs (Past 12 Hours) Vital Signs Temp Pulse Pulse Resp BP Pulse Ox Pulse Ox 07/05/21 12:00 99 07/05/21 11:08 36.4 C L 88 16 97/68 L 98 07/05/21 08:36 93 H 07/05/21 07:45 37.3 C 99 H 18 97/62 L 07/05/21 03:36 36.9 C 94 H 16 99/67 L 95 Laboratory Results Short CBC 07/05/21 Range/Units 06:51 WBC 1.61 L (4.8-10.8) K/uL Hgb 8.0 L (12.0-16.0) g/dL Hct 24.5 L (37-47) % Plt Count 121 L (130-400) K/uL BMP 07/05/21 06:51 Sodium 135 L Potassium 4.6 D Chloride 102 Carbon Dioxide 27 BUN 11 Creatinine 0.56 L Glucose 94 Calcium 8.5
[2021-07-05] MEDS: DOCUSATE SODIUM 100 MG CAP PO SCH (21:00)
[2021-07-06] MEDS: CEFEPIME 2,000 MG in SYRINGE 0 ML IV SCH ×2 (01:26→08:29)
[2021-07-06] MEDS: LEVOTHYROXINE SODIUM 112 MCG TABLET PO SCH (06:04)
[2021-07-06 06:57] LABS: Hematocrit (blood only) 27.2 % (37-47); Hemoglobin 9.5 g/dL (12.0-16.0); Mean Corpuscular Hgb Conc 34.9 g/dL (32-36); Mean Corpuscular Volume 94.4 fL (80-100); Platelet Count 178 K/uL (130-400); RDW Standard Deviation 65.5 fL (36.4-46.3); Red Blood Count 2.88 M/uL (4.2-5.4)
[2021-07-06 07:10] LABS: BUN Creatinine Ratio 21.8 (10-20); Calcium 9.5 mg/dl (8.5-10.1); Creatinine Clr Calc Pharmacy 120.2 ml/min; Est GFR (African American) 122.4 ml/min; Est GFR (Non-African American) 105.6 ml/min; Potassium 4.5 mmol/L (3.5-5.1)
[2021-07-06 07:21] LABS: Anisocytosis Present; Eosinophils # (auto) 0.01 K/uL (0-0.5); Eosinophils % (auto) 0.4 %; Lymphocytes # (auto) 1.16 K/uL (1.2-3.4); Lymphocytes % (auto) 48.3 %; Monocytes # (auto) 0.24 K/uL (0.11-0.59); Neutrophils # (auto) 0.99 K/uL (1.4-6.5); Neutrophils % (auto) 41.3 %; Spherocytes 1+
[2021-07-06] MEDS: POLYETHYLENE (MIRALAX) 17 GM PACK PO SCH (08:29)
[2021-07-06] MEDS: CALCIUM 600MG + VIT D 400 IU TAB PO SCH (08:29)
[2021-07-06] MEDS: CHOLECALCIFEROL 5,000 UNITS 125 MCG TAB PO SCH (08:30)
[2021-07-06] MEDS: EXEMESTANE 25 MG PO SCH (10:46)
--- NOTE | 2021-07-06 14:02 | Hospitalist Progress Note ---
Date of Service July 06, 2021 Assessment & Plan (1) Sepsis: (2) Neutropenic fever: (3) LLL pneumonia: (4) Symptomatic anemia: (5) Elevated troponin: (6) MDS (myelodysplastic syndrome): Plan: Patient is a 56 yr female with H/O Breast cancer S/P bilateral mastectomy in 2017, history of ovarian cancer status post IRENA and BSO in 2017, BRCA positive, hypothyroidism and MDS who presents to ED after being [facility] due to chest pain x1 day and low hemoglobin. Sepsis Neutropenic fever Left lower lobe pneumonia Hypoxia MSSA Bacteremia likely due to Chemo Port Blood Cultures: Staph species, gram-negative bacilli Repeat cultures negative to date ECHO: No significant valvular pathology. IV cefepime and vancomycin>> transition to cefepime, Levaquin>>>>IV cefepime>>IV Cefazolin sputum culture not contributory Incentive spirometry Appreciate ID Input IV fluids as needed Chemo Port removed--Appreciate Surgery Input Will need to complete 2-week course of IV antibiotics USG line placed on 07/03/21 Plan to discharge once IV antibiotics for discharge are arranged. MDS Symptomatic Anemia Pancytopenia recently dx with MDS Follows Dr. Bae, last chemo ~ 1 month ago S/P PRBCs No obvious signs of bleeding Monitor CBC Pancytopenia improving Troponin Elevation LikelyType II SC Appreciate Cardiology Input H/O Breast and Ovarian Cancer continue exemestane Hypothyroidism continue Levothyroxine DVT Px:SCDs Re: Anemia, Thrombocytopenia Code Status FULL CODE Admission and Anticipated Discharge Date Admission Date: June 30, 2021 Subjective Patient is seen and examined at bedside No new complaints Eager to get discharged Denies chest pain, dyspnea, dizziness, nausea, vomiting, abd pain Pancytopenia improving Review of Systems Review of Systems: All systems reviewed & are unremarkable except as noted in Subjective Physical Exam Physical Exam: Physical Exam: Vitals signs as noted above General Appearance:Moderately built and nourished, no apparent distress Head: normocephalic, Atraumatic Eyes: normal inspection, EOMI Neck: supple, Trachea midline Respiratory/Chest: Normal breath sounds,CTA Cardiovascular: S1, S2, No murmur Abdomen/GI:Soft, Non tender, Bowel sounds present Extremities/Musculoskeletal:normal inspection, no edema Neurologic/Psych:AAOX3, grossly no focal neurological deficits Skin: normal color, warm Results & Data Results & Data ([facility]) Vital Signs (Past 12 Hours) Vital Signs Temp Pulse Resp BP Pulse Ox 07/06/21 11:18 36.8 C 89 16 103/66 95 07/06/21 07:48 36.9 C 94 H 16 112/78 97 07/06/21 03:33 36.7 C 86 18 103/66 97 Laboratory Results Short CBC 07/06/21 Range/Units 06:21 WBC 2.40 L (4.8-10.8) K/uL Hgb 9.5 L (12.0-16.0) g/dL Hct 27.2 L (37-47) % Plt Count 178 (130-400) K/uL BMP 07/06/21 06:21 Sodium 134 L Potassium 4.5 Chloride 98 Carbon Dioxide 27 BUN 12 Creatinine 0.55 L Glucose 91 Calcium 9.5
[2021-07-06] MEDS: ceFAZolin 2000MG 2,000 MG/15 ML SYR IV SCH ×2 (15:41→23:09)
[2021-07-06] MEDS: DOCUSATE SODIUM 100 MG CAP PO SCH (20:29)
[2021-07-07] MEDS: LEVOTHYROXINE SODIUM 112 MCG TABLET PO SCH (05:32)
[2021-07-07 05:59] LABS: Eosinophils # (auto) 0.01 K/uL (0-0.5); Eosinophils % (auto) 0.4 %; Hematocrit (blood only) 27.2 % (37-47); Hemoglobin 8.8 g/dL (12.0-16.0); Lymphocytes # (auto) 1.09 K/uL (1.2-3.4); Lymphocytes % (auto) 40.2 %; Mean Corpuscular Hemoglobin 30.9 pg (25-34); Mean Corpuscular Hgb Conc 32.4 g/dL (32-36); Mean Corpuscular Volume 95.4 fL (80-100); Monocytes # (auto) 0.32 K/uL (0.11-0.59); Monocytes % (auto) 11.8 %; Neutrophils # (auto) 1.29 K/uL (1.4-6.5); Neutrophils % (auto) 47.6 %; Platelet Count 199 K/uL (130-400); RDW Coefficient of Variation 19.9 % (11.5-14.5); RDW Standard Deviation 67.1 fL (36.4-46.3); Red Blood Count 2.85 M/uL (4.2-5.4); White Blood Count 2.71 K/uL (4.8-10.8)
[2021-07-07] MEDS: ceFAZolin 2000MG 2,000 MG/15 ML SYR IV SCH ×2 (08:20→17:55)
[2021-07-07] MEDS: POLYETHYLENE (MIRALAX) 17 GM PACK PO SCH (08:20)
[2021-07-07] MEDS: EXEMESTANE 25 MG PO SCH (12:32)
[2021-07-07] MEDS: CALCIUM 600MG + VIT D 400 IU TAB PO SCH (12:32)
[2021-07-07] MEDS: CHOLECALCIFEROL 5,000 UNITS 125 MCG TAB PO SCH (12:33)
[2021-07-07] MEDS: HYDROCORTISONE 2.5% CR 30 GM TUBE EXT SCH ×2 (12:33→20:34)
--- NOTE | 2021-07-07 17:11 | Hospitalist Progress Note ---
Date of Service July 07, 2021 Assessment & Plan (1) Sepsis: (2) Neutropenic fever: (3) LLL pneumonia: (4) Symptomatic anemia: (5) Elevated troponin: (6) MDS (myelodysplastic syndrome): Plan: Patient is a 56 yr female with H/O Breast cancer S/P bilateral mastectomy in 2017, history of ovarian cancer status post IRENA and BSO in 2017, BRCA positive, hypothyroidism and MDS who presents to ED after being [facility] due to chest pain x1 day and low hemoglobin. Sepsis Neutropenic fever Left lower lobe pneumonia Hypoxia MSSA Bacteremia likely due to Chemo Port Blood Cultures: Staph species, gram-negative bacilli Repeat cultures negative to date ECHO: No significant valvular pathology. IV cefepime and vancomycin>> transition to cefepime, Levaquin>>>>IV cefepime>>IV Cefazolin sputum culture not contributory Incentive spirometry Appreciate ID Input IV fluids as needed Chemo Port removed--Appreciate Surgery Input Will need to complete 2-week course of IV antibiotics USG line placed on 07/03/21 Plan to discharge once IV antibiotics for discharge are arranged. Has low-grade fever today Cultures remain negative Likely discharge tomorrow if remains afebrile MDS Symptomatic Anemia Pancytopenia recently dx with MDS Follows Dr. Bae, last chemo ~ 1 month ago S/P PRBCs No obvious signs of bleeding Monitor CBC Pancytopenia improving Neutropenia resolved Troponin Elevation LikelyType II [place] Appreciate Cardiology Input H/O Breast and Ovarian Cancer continue exemestane Hypothyroidism continue Levothyroxine DVT Px:SCDs Re: Anemia, Thrombocytopenia Code Status FULL CODE Admission and Anticipated Discharge Date Admission Date: June 30, 2021 Subjective Patient is seen and examined at bedside Patient has low-grade fever today States feeling well No complaints Denies chest pain, dyspnea, dizziness, nausea, vomiting, abd pain Review of Systems Review of Systems: All systems reviewed & are unremarkable except as noted in Subjective Physical Exam Physical Exam: Physical Exam: Vitals signs as noted above General Appearance:Moderately built and nourished, no apparent distress Head: normocephalic, Atraumatic Eyes: normal inspection, EOMI Neck: supple, Trachea midline Respiratory/Chest: Normal breath sounds,CTA Cardiovascular: S1, S2, No murmur Abdomen/GI:Soft, Non tender, Bowel sounds present Extremities/Musculoskeletal:normal inspection, no edema Neurologic/Psych:AAOX3, grossly no focal neurological deficits Skin: normal color, warm Results & Data Results & Data ([facility]) Vital Signs (Past 12 Hours) Vital Signs Temp Pulse Pulse Resp BP Pulse Ox 07/07/21 15:53 37.6 C H 94 H 19 97/63 L 93 07/07/21 11:48 37.7 C H 98 H 18 102/68 95 07/07/21 08:00 88 07/07/21 07:22 36.8 C 98 H 18 101/68 96 Laboratory Results Short CBC 07/07/21 Range/Units 05:42 WBC 2.71 L (4.8-10.8) K/uL Hgb 8.8 L (12.0-16.0) g/dL Hct 27.2 L (37-47) % Plt Count 199 (130-400) K/uL
[2021-07-07] MEDS: DOCUSATE SODIUM 100 MG CAP PO SCH (20:34)
[2021-07-08] MEDS: ceFAZolin 2000MG 2,000 MG/15 ML SYR IV SCH ×2 (02:26→06:35)
[2021-07-08] MEDS ORDERED: Nursing to Pharmacy Communication SCH (02:45)
[2021-07-08] MEDS: LEVOTHYROXINE SODIUM 112 MCG TABLET PO SCH (06:35)
[2021-07-08 07:51] LABS: BUN Creatinine Ratio 19.7 (10-20); Calcium 8.4 mg/dl (8.5-10.1); Creatinine Clr Calc Pharmacy 93.1 ml/min; Est GFR (African American) 111.1 ml/min; Est GFR (Non-African American) 95.9 ml/min
[2021-07-08 08:53] LABS: Eosinophils # (auto) 0.01 K/uL (0-0.5); Eosinophils % (auto) 0.4 %; Hematocrit (blood only) 28.4 % (37-47); Hemoglobin 9.1 g/dL (12.0-16.0); Immature Granulocytes # (auto) 0.01 K/uL (0.00-0.02); Immature Granulocytes % (auto) 0.4 %; Lymphocytes # (auto) 0.86 K/uL (1.2-3.4); Lymphocytes % (auto) 34.5 %; Mean Corpuscular Hemoglobin 30.2 pg (25-34); Mean Corpuscular Volume 94.4 fL (80-100); Monocytes # (auto) 0.33 K/uL (0.11-0.59); Monocytes % (auto) 13.3 %; Neutrophils # (auto) 1.28 K/uL (1.4-6.5); Neutrophils % (auto) 51.4 %; Platelet Count 229 K/uL (130-400); RDW Coefficient of Variation 20.5 % (11.5-14.5); Red Blood Count 3.01 M/uL (4.2-5.4); White Blood Count 2.49 K/uL (4.8-10.8)
[2021-07-08 09:24] LABS: Polychromasia 1+; Rouleaux 1+
--- NOTE | 2021-07-08 10:07 | Discharge Summary ---
Date of Service July 08, 2021 Admission HPI Per Admitting Provider This is a 56 yr old F who has a significant past medical history of breast cancer status post bilateral mastectomy in 2017, history of ovarian cancer status post IRENA and BSO in 2017, BRCA positive, hypothyroidism and MDS who presents to ED after being [facility] due to chest pain x1 day and low hemoglobin. Of significance patient recently got diagnosed with MDS approximately a few months ago. She is following with Dr. Bae was seen in clinic yesterday. She was found to be neutropenic with a hemoglobin of 6.2. She was set up at [facility] for 2 units of PRBC to be transfused today. When she arrived to [facility] she complained of left-sided chest pain and was tachycardic. She was then referred to ED. She states over the last 4 days she has felt unwell. She complains of increasing fatigue and dyspnea with exertion. She also has a wet cough with clear sputum. She further complains of chills and sweats, but no documented fever at home. Yesterday afternoon she started with left-sided chest pain. She has never experienced in the past. It would come and go. Pain was worse with inspiration. She did not try anything for her pain. She thought maybe it was indigestion. It was not made worse with exertion. Overall decreased appetite for the past 4 days. She does admit to having her first round of chemotherapy for MDS approximately 1 month ago. She states she takes 2 shots and is unaware of the names. She states she takes it for a week and then is off for 3 weeks. In ED pt met Severe Sepsis criteria 2/2 to hypotension, tachycardic and likely source of LLL PNA. She was found to be profoundly anemia with hgb of 5.6. She had 2 units of PRBC ordered and was started in ED. She also met criteria for neutropenic fever. She received IV cefepime in ED. Admission Exam Per Admitting Provider Constitutional: WD/WN, vitals as above, NAD, sitting up in bed, pleasant, conversing easily Head: Normocephalic, Atraumatic Eyes: PERRL, conjunctivae normal, anicteric sclerae ENMT: external ear and nose normal, oropharynx normal Neck: trachea midline, no thyromegaly normal visual inspection Respiratory: normal respiratory effort, lungs clear to auscultation, no wheeze, rhonchi, +crackles LLL. Normal insp/exp effort, no accessory muscle use Cardiovascular: RRR, 2/6 DAMIEN RUSB, no edema Vessels: no JVD or carotid bruit Chest: normal inspection of chest , RACW port Abdomen: normal bowel sounds, soft, nontender, no hepatosplenomegaly Musculoskeletal: no cyanosis or clubbing, extremities motor strength 5/5 Skin: no rashes, warm and dry normal turgor Neurologic: PERRL, EOMI, accommodation nl, no face palsy, no dysarthria CN's II-XI intact bilaterally and moves all extremities Psychiatric: A+Ox3, euthymic affect Lymphatic: no cervical or axillary lymphadenopathy : deferred Principal Diagnosis Sepsis Neutropenic Fever MSSA Bacteremia due to infected chemo port MDS Symptomatic anemia status post transfusion Discharge Exam Gen: WD/WN, F, upright in chair, NAD, A&O x3 HEENT: Normocephalic, atraumatic, conjunctivae moist, sclerae anicteric, mucous membranes moist. Lung: Clear to Auscultation bilaterally, no wheezes/rales/rhonchi Heart: Regular rate, regular rhythm, no murmurs, rubs, or gallops, RACW port removed site cdi, no erythema Abdomen: Soft, NT, ND +BS x 4 Extremities: No edema Skin: Warm, no rash, negative turgor. Discharge Data Allergies Allergy/AdvReac Type Severity Reaction Status Date / Time No Known Allergies Allergy Verified 06/30/21 09:33 Consultations 06/30/21 09:41 ED Decision to Admit Stat 07/01/21 09:16 Consult Cardiology Routine 07/02/21 09:14 Consult Infectious Diseases Routine 07/03/21 17:28 Consult General Surgery Routine Procedures Performed Operation Date: 07/04/21 07:30 Actual Procedures p Infusaport Removal Right Side(Right) - Joel Sawyer MD Ordered Studies Chest X-Ray 06/30/21 08:22 XR chest 1V portable HISTORY: SEPSIS COMPARISON: None. FINDINGS: There are low lung volumes. No pneumothorax. No pleural effusions. The heart is mildly enlarged. A few bibasilar linear densities suggesting subsegmen chantelle atelectasis. Mild central pulmonary vascular congestion without overt edema. IMPRESSION: 1. Cardiomegaly with mild congestive change. 2. A few bibasilar linear densities. This favors subsegmental atelectasis. A pneumonia could also have a similar appearance but is considered less likely. ACT 112: Negative or not required by law. Electronically signed by: Sanket Curtis M.D. 06/30/2021 9:04 AM Chest X-Ray 07/03/21 16:40 XR chest 1V portable CLINICAL HISTORY: Atypical chest pain. COMPARISON STUDY: Chest radiograph June 30, 2021. PET/CT June 22, 2016. FINDINGS: Right sided [place] is in place. There is no pneumothorax. There are small bilateral pleural effusions. Patchy bibasilar opacities are present. Cardiomegaly is noted. No evidence for pulmonary edema. IMPRESSION: Small bilateral pleural effusions. Patchy bibasilar opacities which could reflect an infectious process or atelectasis. ACT 112: Negative or not required by law. Electronically signed by: Delmer Carey M.D. 07/03/2021 5:20 PM Hospital Course (1) Sepsis: (2) Neutropenic fever: (3) LLL pneumonia: (4) Symptomatic anemia: (5) Elevated troponin: (6) MDS (myelodysplastic syndrome): Patient is a 56 yr female with H/O Breast cancer S/P bilateral mastectomy in 2017, history of ovarian cancer status post IRENA and BSO in 2017, BRCA positive, hypothyroidism and MDS who presents to ED after being [facility] due to chest pain x1 day and low hemoglobin. Sepsis Neutropenic fever Left lower lobe pneumonia Hypoxia MSSA Bacteremia likely due to Chemo Port Blood Cultures: Staph species, gram-negative bacilli Repeat cultures negative to date ECHO: No significant valvular pathology. IV cefepime and vancomycin>> transition to cefepime, Levaquin>>>>IV cefepime>>IV Cefazolin sputum culture not contributory Incentive spirometry Appreciate ID Input IV fluids as needed Chemo Port removed--Appreciate Surgery Input Will need to complete 2-week course of IV antibiotics, will complete on 07/20/21 USG line placed on 07/03/21 Discharge today, 07/08/21, on IV antibiotics MDS Symptomatic Anemia Pancytopenia recently dx with MDS Follows Dr. Bae, last chemo ~ 1 month ago S/P PRBCs No obvious signs of bleeding Monitor CBC Pancytopenia improving hgb 9.1 today, day of discharge Pt will continue all other home medications. Follow up with PCP has been arranged. She will be d/c with Home health for IV antibioitcs. Total Time Total Time Spent Total Time Spent (In Minutes): 35 minutes Discharge Plan Discharge Items Patient Disposition: Home - Home Health Services Reason For Visit: SEPSIS, NEUTROPENIC FEVER, PNA Discharge Diagnosis: Sepsis Neutropenic Fever MSSA Bacteremia due to infected chemo port MDS Symptomatic anemia status post transfusion Condition on Discharge: Good Activity: Resume your previous activity Lifting: None Bathing Comment: May shower; must keep IV site clean and dry, refer to instructions. Driving/Machine Use: No driving until follow up with your Primary Care Provider Weightbearing: Full weightbearing Non-emergency contact: Primary Care Provider Call non-emergency contact if: you have any medication questions, your symptoms worsen, your pain is not controlled, your pain is worsening, your pain is unusual for you, your pain is concerning for you, you have a fever and your temperature is above 101.5 Follow-up/Referrals: Marisela Shoemaker PA-C [Primary Care Provider] - 07/13/21 11:00 am (Date & Time 07/13/2021 11:00 AM Provider Marisela Shoemaker PA-C Department [facility] ) Diet: Regular Addtl Attending Provider Instructions: MEDICATION CHANGES: You will continue IV antibiotic Cefazolin 2g every 8 hours until complete on 07/20/21. Continue all other home medications as prescribed. SUMMARY OF TEST RESULTS: You were admitted to hospital due to neutropenic fever and symptomatic anemia. You were found to have infection in your blood stream caused by your mediport. Your mediport was removed and you have been placed on appropriate antibiotics for 2 weeks. Your repeat blood cultures were negative. You did require 3 units of PRBC transfusion due to anemia. Your hemoglobin at discharge was 9.1 PENDING TEST RESULTS: Final culture from port removal is pending. Please follow up with Primary Care Provider for these results. RECOMMENDATIONS FOR FOLLOW-UP: Please complete antibiotic in its entirety. Continue all other home medications. Please follow up with Primary Care Provider and Oncologist Dr. Bae as scheduled. You may shower; however you must wrap your IV site in saran wrap and this must stay dry. It must be sealed on both ends. OTHER INSTRUCTIONS: Seek medical attention if you have: * temperature above 101 * chest pain or trouble breathing * abdominal pain, nausea, vomiting * diarrhea, dark stools or bloody stools * any unanswered questions or concerns Call 911 if symptoms are severe. Please take good care of yourself. It has been a pleasure taking care of you. Please take care of yourself. If you have any questions regarding your recent hospitalization please contact [facility] and request Dorene Boyceist @ [phone]. Lisa Montez PA-C Pending Studies at Discharge: Yes Studies:: Final culture from port removal pending Stand-Alone Forms: My [facility], Smoking Cessation Medications and DC Order Prescriptions: Continued ondansetron HCl 8 mg tablet 8 mg PO Q6H PRN (Reason: Nausea And Vomiting) RF: 0 prochlorperazine maleate 10 mg tablet 10 mg PO Q6H PRN (Reason: Nausea And Vomiting) RF: 0 calcium carbonate-vitamin D3 [Calcium 600 + D(3)] 600 mg-5 mcg (200 unit) Tablet 1 tab PO QAM RF: 0 exemestane 25 mg tablet 25 mg PO QAM RF: 0 zinc 50 mg Tablet 0 mg PO QAM RF: 0 levothyroxine 112 mcg tablet 112 mcg PO DAILYBB RF: 0 cholecalciferol (vitamin D3) [Vitamin D3] 125 mcg (5,000 unit) Tablet 125 mcg PO QAM RF: 0 azacitidine 100 mg Recon Soln 150 mg SUBCUT UD RF: 0 Discharge Orders: Discharge Order (Routine); Ordered 07/08/21 Ordered By: Lisa Montez Admission Data Admit Date/Time: 06/30/21 10:05 Attending Provider: Rufus Ventura Admit Provider: Luz Chakraborty I. Primary Care Provider: Marisela Shoemaker Other Providers: [facility] ; Luz Chakraborty I. ; Navdeep Avendaño ; Lisa Montez ; Nicanor Lindsey ; Zoltan Macias ; Siddharth Leblanc ; Cecilio Chowdhury I. ; Roger Mccracken II ; Suma Carroll ; Meet Walker ; Jose Alberto Jackson ; Joel Sawyer ; Meet Ramos ; Eleanor Segal ; Dia Macario ; James Reid ; Navdeep Franks ; Alexus Hollingsworth ; Laura Tan ; Jose Alberto Ramires Jr ; Sixto John ; Floyd Flores ; Janeth Kiarn Home Health Attestation I certify that this patient is under my care and that I, or a physicians assistant head cashier working with me, had a face to-face encounter that meets the home health [id number] encounter requirements with this patient. The encounter with the patient was in whole, or in part, for the following medical condition, which is the primary reason for home health care (list medical condition): Sepsis. I certify that, based on my findings, the following services are medically necessary home health services: My clinical findings support the need for the above services because: Skilled Nsg Assessment Further, I certify that my clinical findings support that this patient is homebound (i.e. absences from home require considerable and taxing effort and are for medical reasons or anabaptism services or infrequently or of short duration when for other reasons) because: Certification for Home Health Services: Based on the above findings, I certify that this patient is confined to the home and needs intermittent half-way care, physical therapy and/or speech therapy or continues to need occupational therapy. The patient is under my care, and I have initiated the establishment of the plan of care. This patient will be followed by a physician who will periodically review the plan of care.
[2021-07-08] MEDS: CALCIUM 600MG + VIT D 400 IU TAB PO SCH (10:31)
[2021-07-08] MEDS: EXEMESTANE 25 MG PO SCH (10:32)
[2021-07-08] MEDS: CHOLECALCIFEROL 5,000 UNITS 125 MCG TAB PO SCH (10:32)
[2021-07-08] MEDS: POLYETHYLENE (MIRALAX) 17 GM PACK PO SCH (10:32)
[2021-07-08] MEDS: HYDROCORTISONE 2.5% CR 30 GM TUBE EXT SCH (10:32)
== END 2021-07-08 11:07 | disposition home health service (06) | DRG 871 ==
LOC: ED 08:03 → SUATTDRO 10:05 → 2S 10:05 → 3W 07-07 18:48

== ENCOUNTER 2022-02-26 08:04 | Inpatient (IN) ==
--- NOTE | 2022-02-26 08:11 | Emergency Department Note ---
History of Present Illness General Chief complaint: Back Injury/Pain Stated complaint: SEVERE BACK PAIN, COUGHING, THROWING UP Time Seen by Provider: 02/26/22 08:10 History of Present Illness Maximum Pain Intensity: 10 This 57-year-old female patient presents to the emergency department with her for evaluation of severe lower back pain for the past 8 days. Initially started with pain that felt like constipation a couple weeks ago without any improvement after treatment of the constipation. The symptoms are progressively getting worse and this morning she woke up with severe pain. She denies any known injury or trauma. The pain is in the middle of her lower back. She rates her pain as sharp and 10/10. She has SOB as well, but denies any chest pain. Has a persisting cough with phlegm since her COVID infection, but is currently on Levaquin and anti-fungals. No fevers. Denies abdominal pain or nausea. Only vomits when she has a lot of phlegm. Started with some burning of her urine this morning, but denies any other urinary symptoms. Still only moving her bowels a small amount every day. Denies hematochezia, melena, hematuria, hemoptysis, or hematemesis. The patient and her had COVID about 2 weeks ago and she was hospitalized at [place] for 6 days for a fever 104 F and COVID. She is currently being treated for lymphoma by her oncologist in [place]. Previous history of breast cancer status post bilateral mastectomy and chemo in 2017 as well as history of ovarian cancer status post total abdominal hysterectomy and bilateral salpingo-oophorectomy and chemotherapy in 2017. She was due for labs today and probable platelet and blood transfusion as an outpatient today based on her blood work. 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 She is scheduled for her first of 5 rounds of chemo on 03/01/22. She rates her pain as sharp and 10/10. Home Medications Medication Instructions Recorded Confirmed Type calcium carbonate 600 mg-vitamin 1 tab PO QAM 06/30/21 02/26/22 History D3 5 mcg (200 unit) tablet (Calcium 600 + D(3)) cholecalciferol (vitamin D3) 125 125 mcg PO QAM 06/30/21 02/26/22 History mcg (5,000 unit) tablet (Vitamin D3) exemestane 25 mg tablet 25 mg PO QAM 06/30/21 02/26/22 History levothyroxine 112 mcg tablet 112 mcg PO DAILYBB 06/30/21 02/26/22 History ondansetron HCl 8 mg tablet 8 mg PO Q6H PRN Nausea And Vomiting 06/30/21 02/26/22 History prochlorperazine maleate 10 mg 10 mg PO Q6H PRN Nausea And 06/30/21 02/26/22 History tablet Vomiting acyclovir 400 mg tablet 400 mg PO BID 12/25/21 02/26/22 History calcium carbonate 500 mg calcium 500 mg PO TID PRN unknown 12/25/21 02/26/22 History (1,250 mg) chewable tablet empagliflozin 10 mg tablet 10 mg PO DAILY 12/25/21 02/26/22 History (Jardiance) lansoprazole 30 mg capsule,delayed 30 mg PO DAILY 12/25/21 02/26/22 History release letermovir 480 mg tablet 480 mg PO DAILY 12/25/21 02/26/22 History multivitamin 1 tab PO DAILY 12/25/21 02/26/22 History posaconazole 100 mg tablet,delayed 300 mg PO DAILY 12/25/21 02/26/22 History release sulfamethoxazole 800 1 tab PO BID 12/25/21 02/26/22 History mg-trimethoprim 160 mg tablet (Bactrim DS) ursodiol 300 mg capsule 300 mg PO BID 12/25/21 02/26/22 History Allergies Allergy/AdvReac Type Severity Reaction Status Date / Time No Known Allergies Allergy Verified 02/02/22 06:56 Past Med/Surg History Medical History BRCA gene mutation positive Cancer of central portion of right female breast (06/08/16) Elevated troponin Hx of breast cancer hx 2017 s/p b/l masectomy, XRT and chemo Hx of ovarian cancer IRENA BSO 01/2017 Hypothyroidism Pneumonia Sepsis Surgical History History of bilateral mastectomy History of cataract extraction History of total abdominal hysterectomy and bilateral salpingo-oophorectomy Hx of colonoscopy with polypectomy last c scope 05/2021 WNL Family History Other Breast cancer Diabetes Social History Smoking Status: Never smoker Hx Alcohol Use: Yes Alcohol type: wine Alcohol Intake Frequency: Monthly or Less Hx Substance Use: No Preferred Language: Turkmen Communication Ability: Effective Accounting Associate Required: No Beliefs That Will Affect Care: None marital status: Current Living Situation: Spouse Feels Safe at Home: Yes Assistive Devices: None Review of Systems See HPI for pertinent positives & negatives. and A total of 10 systems reviewed and were otherwise negative Physical Exam Vital Signs Vital Signs - 24 hr 02/26/22 08:07 02/26/22 08:44 02/26/22 10:34 Temperature 36.9 C 38.4 C H Temperature Source Temporal Artery Scan Oral Pulse Rate 112 H Pulse Rate [Right Finger] 96 H 91 H Pulse Rhythm Regular Pulse Strength Normal Respiratory Rate 20 18 20 Respiratory Effort / Characteristics Non-Labored Spontaneous Non-Labored Non-Labored Respiratory Depth Normal Normal Normal Respiratory Pattern Regular Blood Pressure 99/53 L Blood Pressure [Right Arm] 114/72 101/54 L Blood Pressure Mean 68 Blood Pressure Mean [Right Arm] 86 69 Blood Pressure Position Sitting Pulse Oximetry 100 20 L 96 Oxygen Delivery Method Room Air Room Air Room Air Sepsis Recent Fever Within 48 Hours No Sepsis New/Unexplained Change in Mental Status No Sepsis Action Taken by Nursing No Action Required VITALS: Vitals are noted on the nurse's note and reviewed by myself. GENERAL: 57-year-old female, who is chronically ill in appearance, in no acute distress, non-diaphoretic, well-developed well-nourished. SKIN: Capillary refill <2 sec. No tenting of the skin. HEAD: Normocephalic, atraumatic. EARS: External auditory canals clear, tympanic membranes pearly manley without erythema or effusion bilaterally. EYES: PERRLA. EOMI. Conjunctivae without injection, sclerae without icterus. NOSE: Patent without discharge. MOUTH: Mucous membranes moist. Uvula midline. Airway patent. NECK: Supple without nuchal rigidity. HEART: Regular rate and rhythm without murmurs gallops or rubs. LUNGS: Clear to auscultation bilaterally without wheezes, rales or rhonchi. No retractions or accessory muscle use. ABDOMEN: Positive bowel sounds x 4. Normal tympanic percussion. Soft, nontender, without masses or organomegaly. Seymour sign negative. No guarding or rebound tenderness. No focal RLQ or LLQ tenderness. MUSCULOSKELETAL: Tender to palpation over the lower lumbar spine and paraspinal muscles. No tenderness to palpation over the cervical or thoracic spine or paraspinal muscles. Full range of motion of the bilateral upper and lower extremities. Strength 5/5 and equal. Peripheral pulses 2+. NEURO: Patient was alert and oriented to person place and time. No focal neurological deficits. Course Administered Medications Discontinued Medications Acetaminophen (Acetaminophen 500 Mg Tab) 1,000 mg PO NOW STA Stop: 02/26/22 10:36 Last Admin: 02/26/22 10:49 Dose: 1,000 mg Documented By: CANDACE Sodium Chloride (Nss) 500 mls @ 999 mls/hr IV .Q31M ONE Stop: 02/26/22 08:55 Last Infusion: 02/26/22 09:17 Dose: 0 mls/hr Documented By: Admin: 02/26/22 08:45 Dose: 999 mls/hr Documented By: CANDACE Cefepime HCl (Maxipime) 2,000 mg in 20 mls @ 5 mls/min IV NOW STA; Protocol Stop: 02/26/22 10:43 Last Admin: 02/26/22 11:21 Dose: 5 mls/min Documented By: CANDACE Vancomycin HCl 2,250 mg/ (Sodium Chloride) 545 mls @ 200 mls/hr IV NOW ONE Stop: 02/26/22 14:02 Last Admin: 02/26/22 11:50 Dose: 200 mls/hr Documented By: CANDACE Morphine Sulfate (Morphine Sulfate 2 Mg/Ml Carp) 2 mg IV NOW STA Stop: 02/26/22 08:26 Last Admin: 02/26/22 08:45 Dose: 2 mg Documented By: CANDACE Ondansetron HCl (Ondansetron Inj 2 Mg/Ml 2 Ml Vial) 4 mg IV NOW STA Stop: 02/26/22 08:26 Last Admin: 02/26/22 08:45 Dose: 4 mg Documented By: CANDACE Medical Decision Making Differential Diagnosis Differential diagnosis includes fracture, subluxation, metastatic disease, constipation, kidney stone, UTI, pyelonephritis, acute intra-abdominal etiology, pneumonia, MD, PE, or others. Laboratory Data Attestation: I reviewed the patient's lab results. Result diagrams: 02/26/22 08:37 02/26/22 08:37 Lab Results 02/26/22 02/26/22 02/26/22 Range/Units 08:37 08:37 08:37 WBC 1.62 L (4.8-10.8) K/ul RBC 2.22 L (3.93-5.22) M/uL Hgb 6.5 L* (12.0-16.0) g/dl Hct 19.6 L* (34.1-44.9) % MCV 88.3 (80.0-100.0) fL MCH 29.3 (25.0-34.0) pg MCHC 33.2 (32.0-36.0) g/dL RDW Std Deviation 50.7 H (36.4-46.3) fL RDW Coeff of Karey 16.9 H (11.5-14.5) % Plt Count 20 L* (130-400) K/uL MPV 9.4 (9.4-12.3) fL Immature Gran % (Auto) 0.6 % Neut % (Auto) 56.9 % Lymph % (Auto) 30.2 % [place] % (Auto) 11.7 % Eos % (Auto) 0.6 % Baso % (Auto) 0.0 % Neut # (Auto) 0.92 L* (1.4-6.5) K/uL Lymph # (Auto) 0.49 L (1.2-3.4) K/uL [place] # (Auto) 0.19 L (0.24-0.82) K/uL Eos # (Auto) 0.01 (0-0.50) K/uL Baso # (Auto) 0.00 (0-0.2) K/uL Immature Gran # (Auto) 0.01 (0.00-0.02) K/uL Polychromasia 1+ Ovalocytes 1+ PT 12.1 H (9.0-12.0) Seconds INR 1.1 (0.9-1.1) APTT 29.5 (21.0-31.0) Seconds PTT Ratio 1.1 Sodium 139 (136-145) mmol/L Potassium 4.0 (3.5-5.1) mmol/L Chloride 106 (98-107) mmol/L Carbon Dioxide 23 (21-32) mmol/L Anion Gap 10 (3-11) BUN 16 (6-23) mg/dl Creatinine 0.81 (0.6-1.2) mg/dl Est Cr Clr Drug Dosing Not Reportable Est GFR ( Amer) 94.1 ml/min Est GFR (Non-Af Amer) 81.2 ml/min BUN/Creatinine Ratio 19.8 (10-20) Glucose 88 (70-99(Fasting)) mg/dl Lactate (0.4-2.0) mmol/L Calcium 9.4 (8.5-10.1) mg/dl Total Bilirubin 0.5 (0.2-1.0) mg/dl AST 10 L (13-39) U/L ALT 13 (7-52) U/L Alkaline Phosphatase 94 (34-104) U/L Troponin I High Sens 6.0 (0-14) pg/ml Total Protein 7.4 (6.0-8.3) gm/dl Albumin 3.9 (3.4-5.0) gm/dl Globulin 3.5 (2.5-4.0) gm/dl Albumin/Globulin Ratio 1.1 (0.9-2) Procalcitonin (0-0.5) ng/ml Urine Color Urine Appearance (Clear) Urine pH (4.5-7.5) Ur Specific [place] (1.000-1.030) Urine Protein (Negative) Urine Glucose (UA) (Negative) Urine Ketones (Negative) Urine Blood (Negative) Urine Nitrite (Negative) Urine Bilirubin (Negative) Urine Urobilinogen (Negative) Ur Leukocyte Esterase (Negative) SARS-CoV-2 (PCR) (Negative) Influenza Type A (PCR) (Neg) Influenza Type B (PCR) (Neg) RSV (RT-PCR) (Neg) SARS-CoV-2, RNA, NAAT (NEGATIVE) Blood Type Antibody Screen Crossmatch 02/26/22 02/26/22 02/26/22 Range/Units 08:37 09:55 09:59 WBC (4.8-10.8) K/ul RBC (3.93-5.22) M/uL Hgb (12.0-16.0) g/dl Hct (34.1-44.9) % MCV (80.0-100.0) fL MCH (25.0-34.0) pg MCHC (32.0-36.0) g/dL RDW Std Deviation (36.4-46.3) fL RDW Coeff of Karey (11.5-14.5) % Plt Count (130-400) K/uL MPV (9.4-12.3) fL Immature Gran % (Auto) % Neut % (Auto) % Lymph % (Auto) % [place] % (Auto) % Eos % (Auto) % Baso % (Auto) % Neut # (Auto) (1.4-6.5) K/uL Lymph # (Auto) (1.2-3.4) K/uL [place] # (Auto) (0.24-0.82) K/uL Eos # (Auto) (0-0.50) K/uL Baso # (Auto) (0-0.2) K/uL Immature Gran # (Auto) (0.00-0.02) K/uL Polychromasia Ovalocytes PT (9.0-12.0) Seconds INR (0.9-1.1) APTT (21.0-31.0) Seconds PTT Ratio Sodium (136-145) mmol/L Potassium (3.5-5.1) mmol/L Chloride (98-107) mmol/L Carbon Dioxide (21-32) mmol/L Anion Gap (3-11) BUN (6-23) mg/dl Creatinine (0.6-1.2) mg/dl Est Cr Clr Drug Dosing Est GFR ( Amer) ml/min Est GFR (Non-Af Amer) ml/min BUN/Creatinine Ratio (10-20) Glucose (70-99(Fasting)) mg/dl Lactate (0.4-2.0) mmol/L Calcium (8.5-10.1) mg/dl Total Bilirubin (0.2-1.0) mg/dl AST (13-39) U/L ALT (7-52) U/L Alkaline Phosphatase (34-104) U/L Troponin I High Sens (0-14) pg/ml Total Protein (6.0-8.3) gm/dl Albumin (3.4-5.0) gm/dl Globulin (2.5-4.0) gm/dl Albumin/Globulin Ratio (0.9-2) Procalcitonin 0.12 (0-0.5) ng/ml Urine Color Yellow Urine Appearance Clear (Clear) Urine pH 7.5 (4.5-7.5) Ur Specific [place] 1.020 (1.000-1.030) Urine Protein Negative (Negative) Urine Glucose (UA) 3+ H (Negative) Urine Ketones Negative (Negative) Urine Blood Negative (Negative) Urine Nitrite Negative (Negative) Urine Bilirubin Negative (Negative) Urine Urobilinogen Negative (Negative) Ur Leukocyte Esterase Negative (Negative) SARS-CoV-2 (PCR) (Negative) Influenza Type A (PCR) (Neg) Influenza Type B (PCR) (Neg) RSV (RT-PCR) (Neg) SARS-CoV-2, RNA, NAAT (NEGATIVE) Blood Type O Negative Antibody Screen NEGATIVE Crossmatch See Detail 02/26/22 02/26/22 02/26/22 Range/Units 10:00 10:48 11:17 WBC (4.8-10.8) K/ul RBC (3.93-5.22) M/uL Hgb (12.0-16.0) g/dl Hct (34.1-44.9) % MCV (80.0-100.0) fL MCH (25.0-34.0) pg MCHC (32.0-36.0) g/dL RDW Std Deviation (36.4-46.3) fL RDW Coeff of Karey (11.5-14.5) % Plt Count (130-400) K/uL MPV (9.4-12.3) fL Immature Gran % (Auto) % Neut % (Auto) % Lymph % (Auto) % [place] % (Auto) % Eos % (Auto) % Baso % (Auto) % Neut # (Auto) (1.4-6.5) K/uL Lymph # (Auto) (1.2-3.4) K/uL [place] # (Auto) (0.24-0.82) K/uL Eos # (Auto) (0-0.50) K/uL Baso # (Auto) (0-0.2) K/uL Immature Gran # (Auto) (0.00-0.02) K/uL Polychromasia Ovalocytes PT (9.0-12.0) Seconds INR (0.9-1.1) APTT (21.0-31.0) Seconds PTT Ratio Sodium (136-145) mmol/L Potassium (3.5-5.1) mmol/L Chloride (98-107) mmol/L Carbon Dioxide (21-32) mmol/L Anion Gap (3-11) BUN (6-23) mg/dl Creatinine (0.6-1.2) mg/dl Est Cr Clr Drug Dosing Est GFR ( Amer) ml/min Est GFR (Non-Af Amer) ml/min BUN/Creatinine Ratio (10-20) Glucose (70-99(Fasting)) mg/dl Lactate 0.8 (0.4-2.0) mmol/L Calcium (8.5-10.1) mg/dl Total Bilirubin (0.2-1.0) mg/dl AST (13-39) U/L ALT (7-52) U/L Alkaline Phosphatase (34-104) U/L Troponin I High Sens (0-14) pg/ml Total Protein (6.0-8.3) gm/dl Albumin (3.4-5.0) gm/dl Globulin (2.5-4.0) gm/dl Albumin/Globulin Ratio (0.9-2) Procalcitonin (0-0.5) ng/ml Urine Color Urine Appearance (Clear) Urine pH (4.5-7.5) Ur Specific [place] (1.000-1.030) Urine Protein (Negative) Urine Glucose (UA) (Negative) Urine Ketones (Negative) Urine Blood (Negative) Urine Nitrite (Negative) Urine Bilirubin (Negative) Urine Urobilinogen (Negative) Ur Leukocyte Esterase (Negative) SARS-CoV-2 (PCR) POSITIVE A* (Negative) Influenza Type A (PCR) Negative (Neg) Influenza Type B (PCR) Negative (Neg) RSV (RT-PCR) Negative (Neg) SARS-CoV-2, RNA, NAAT NEGATIVE (NEGATIVE) Blood Type Antibody Screen Crossmatch Imaging Data Radiologist's Impression: Chest X-Ray 02/26/22 08:25 XR chest 1V portable HISTORY: Shortness of breath, recent COVID COMPARISON: Chest 07/03/2021. FINDINGS: The lungs are clear. Cardiac silhouette is normal in size. No pleural effusions. No pneumothorax. IMPRESSION: No acute process. ACT 112: Negative or not required by law. Electronically signed by: Sanket Curtis M.D. 02/26/2022 9:55 AM KUB X-Ray 02/26/22 08:25 KUB HISTORY: lower back pain, constipation COMPARISON: Abdomen and pelvis CT 01/04/2022. FINDINGS: The bowel gas pattern is unremarkable. There are no dilated loops of small bowel to suggest an obstruction. No renal calculi. No ureteral calculi. Calcifications in the deep pelvis likely represent phleboliths. Punctate cortical calcification within the right kidney again noted. No pneumoperitoneum or pneumatosis. Mild to moderate well-formed stool within the colon. IMPRESSION: 1. No evidence for bowel obstruction. 2. [id number] fecal retention. ACT 112: Negative or not required by law. Electronically signed by: Sanket Curtis M.D. 02/26/2022 9:54 AM Lumbar Spine X-Ray 02/26/22 08:25 XR lumbar spine min 4V routine CLINICAL HISTORY: Back pain. COMPARISON STUDY: CT of the abdomen and pelvis January 04, 2022. FINDINGS: Alignment of the lumbar spine. There is no lumbar spine fracture. Mild multilevel degenerative changes are present. Small calcification within the right kidney is noted. Prior abdominal CT showed this to be cortical in location. IMPRESSION: 1. No acute lumbar spine fracture or subluxation. 2. Mild multilevel degenerative changes within the lumbar spine. ACT 112: Negative or not required by law. Electronically signed by: Delmer Carey M.D. 02/26/2022 10:03 AM MDM Narrative I examined the patient. An IV lock was placed and labs were drawn. The patient was given 500 mL normal saline solution bolus. She was given morphine 2 mg IV and Zofran 4 mg IV with resolution of her pain. EKG is interpreted by myself shows a normal sinus rhythm at 95 bpm with nonspecific T wave changes that are unchanged from her previous EKG in June 2021. Troponin was normal. Chest x- ray was reviewed by myself and read by radiology as above and showed no acute cardiopulmonary etiology. X-ray of the lumbar spine was reviewed by myself and read by radiology as above and showed mild multilevel degenerative changes, but no acute fracture or subluxation or other abnormal etiologies. KUB showed mild to moderate fecal retention, but no evidence for obstruction. The patient had a CT scan of her abdomen and pelvis on 01/04/2022 without acute abnormalities. I do not feel that repeat CT scan is needed at this time as the patient does not have any abdominal pain or abdominal tenderness on exam. Hemoglobin low at 6.5 with hematocrit of 19.6 as well as platelet count of 20 and ANC of 0.92. This has progressively gotten worse since 02/15/2022. CMP without significant abnormalities and normal LFTs. Urinalysis with 3+ glucose, but otherwise negative for UTI. 2 units of leukocyte reduced irradiated packed red blood cells were ordered along with 1 unit of platelets. Due to the patient's crossmatch she was unable to get the second unit of blood until later this evening. I spoke with Dr. Atkinson of heme/onc. Since the patient is symptomatic with shortness of breath especially with exertion the recommendation was to admit the patient to receive the additional blood products and for further monitoring. [id number] COVID was negative. I had a meaningful discussion about this patient with Dr. Wood. They agree with my assessment and the treatment plan. Prior to the patient receiving any blood or platelets she developed a fever of 38.4 C orally. She was given Tylenol 1000 mg p.o.. Blood cultures were drawn. Lactate and procalcitonin were negative. I spoke with the on-call hospitalist who agreed to accept the patient for admission. After discussion with the hospitalist the patient was started on cefepime and vancomycin IV. RSV/influenza/COVID Cepheid testing had been ordered after she developed a fever and was positive for COVID, but negative for RSV and influenza. Please refer to the hospitalist dictation for further details. The patient's care was transferred in stable condition. Impression & Plan Symptomatic anemia, MDS (myelodysplastic syndrome), Neutropenia, Low back pain, Fever Discharge Plan Visit Data Chief Complaint: Back Injury/Pain Stated Complaint: SEVERE BACK PAIN, COUGHING, THROWING UP ED Provider: Festus Wood ED Midlevel Provider: Marilu Braxton Discharge Problem: Symptomatic anemia, MDS (myelodysplastic syndrome), Neutropenia, Low back pain, Fever Patient Disposition: Admitted As Inpatient Condition: Good Discharge Instructions Interventions: ED Discharge Assessment Last Done: 02/26/22 14:44
[2022-02-26] MEDS ORDERED: ONDANSETRON INJ 2 MG/ML 2 ML VIAL IV STA (08:25)
[2022-02-26] MEDS ORDERED: MoRPHine SULFATE 2 MG/ML CARP IV STA (08:25)
[2022-02-26] MEDS ORDERED: SODIUM CHLORIDE 0.9% 500 ML IV ONE (08:25)
[2022-02-26 09:12] LABS: INR 1.1 (0.9-1.1); Partial Thromboplastin Ratio 1.1; Partial Thromboplastin Time 29.5 Seconds (21.0-31.0); Prothrombin Time 12.1 Seconds (9.0-12.0)
[2022-02-26 09:14] LABS: Hematocrit (blood only) 19.6 % (34.1-44.9); Hemoglobin 6.5 g/dl (12.0-16.0); Mean Corpuscular Hemoglobin 29.3 pg (25.0-34.0); Mean Corpuscular Hgb Conc 33.2 g/dL (32.0-36.0); Mean Corpuscular Volume 88.3 fL (80.0-100.0); Mean Platelet Volume 9.4 fL (9.4-12.3); Platelet Count 20 K/uL (130-400); RDW Coefficient of Variation 16.9 % (11.5-14.5); RDW Standard Deviation 50.7 fL (36.4-46.3); Red Blood Count 2.22 M/uL (3.93-5.22); White Blood Count 1.62 K/ul (4.8-10.8)
[2022-02-26] MEDS ORDERED: SODIUM CHLORIDE 0.9% 250 ML IV PRN (09:19)
--- NOTE | 2022-02-26 09:20 | Electrocardiogram Report ---
Test Reason : Blood Pressure : / mmHG Vent. Rate : 095 BPM Atrial Rate : 095 BPM P-R Int : 166 ms QRS Dur : 080 ms QT Int : 368 ms P-R-T Axes : 041 052 031 degrees QTc Int : 462 ms Normal sinus rhythm Diffuse Minor Nonspecific T wave abnormality Abnormal ECG When compared with ECG of 03-JUL-2021 16:38, Nonspecific T wave abnormality now present Confirmed by Allen Jaeger ([id number]) on 02/26/2022 9:19:44 AM Referred By: REFERRED SELF Confirmed By:Allen Jaeger
[2022-02-26 09:27] LABS: Alanine Aminotransferase 13 U/L (7-52); Albumin Globulin Ratio 1.1 (0.9-2); Albumin Level 3.9 gm/dl (3.4-5.0); Alkaline Phosphatase 94 U/L (34-104); Anion Gap 10 (3-11); Aspartate Aminotransferase 10 U/L (13-39); BUN Creatinine Ratio 19.8 (10-20); Bilirubin,Total 0.5 mg/dl (0.2-1.0); Blood Urea Nitrogen 16 mg/dl (6-23); Calcium 9.4 mg/dl (8.5-10.1); Carbon Dioxide 23 mmol/L (21-32); Chloride 106 mmol/L (98-107); Est GFR (African American) 94.1 ml/min; Est GFR (Non-African American) 81.2 ml/min; Globulin 3.5 gm/dl (2.5-4.0); Glucose 88 mg/dl (70-99(Fasting)); Sodium 139 mmol/L (136-145); Total Protein 7.4 gm/dl (6.0-8.3)
--- NOTE | 2022-02-26 09:56 | XRay Report ---
KUB HISTORY: lower back pain, constipation COMPARISON: Abdomen and pelvis CT 01/04/2022. FINDINGS: The bowel gas pattern is unremarkable. There are no dilated loops of small bowel to suggest an obstruction. No renal calculi. No ureteral calculi. Calcifications in the deep pelvis likely rep resent phleboliths. Punctate cortical calcification within the right kidney again noted. No pneumoper itoneum or pneumatosis. Mild to moderate well-formed stool within the colon. IMPRESSION: 1. No evidence for bowel obstruction. 2. [id number] fecal retention. ACT 112: Negative or not required by law. Electronically signed by: Sanket Curtis M.D. 02/26/2022 9:54 AM
--- NOTE | 2022-02-26 09:57 | XRay Report ---
XR chest 1V portable HISTORY: Shortness of breath, recent COVID COMPARISON: Chest 07/03/2021. FINDINGS: The lungs are clear. Cardiac silhouette is normal in size. No pleural effusions. No pneumot horax. IMPRESSION: No acute process. ACT 112: Negative or not required by law. Electronically signed by: Sanket Curtis M.D. 02/26/2022 9:55 AM
--- NOTE | 2022-02-26 10:05 | XRay Report ---
XR lumbar spine min 4V routine CLINICAL HISTORY: Back pain. COMPARISON STUDY: CT of the abdomen and pelvis January 04, 2022. FINDINGS: Alignment of the lumbar spine. There is no lumbar spine fracture. Mild multilevel degenerat all changes are present. Small calcification within the right kidney is noted. Prior abdominal CT lois wed this to be cortical in location. IMPRESSION: 1. No acute lumbar spine fracture or subluxation. 2. Mild multilevel degenerative changes within the lumbar spine. ACT 112: Negative or not required by law. Electronically signed by: Delmer Carey M.D. 02/26/2022 10:03 AM
[2022-02-26 10:22] LABS: Appearance Urine Clear (Clear); Bilirubin Urine Negative (Negative); Blood Urine Negative (Negative); Color Urine Yellow; Glucose Urine UA 3+ (Negative); Ketones Urine Negative (Negative); Leukocyte Esterase Urine Negative (Negative); Nitrite Urine Negative (Negative); Protein Urine Negative (Negative); Urobilinogen Urine Negative (Negative); pH Urine 7.5 (4.5-7.5)
[2022-02-26 10:25] LABS: Eosinophils # (auto) 0.01 K/uL (0-0.50); Eosinophils % (auto) 0.6 %; Immature Granulocytes # (auto) 0.01 K/uL (0.00-0.02); Immature Granulocytes % (auto) 0.6 %; Lymphocytes # (auto) 0.49 K/uL (1.2-3.4); Lymphocytes % (auto) 30.2 %; Monocytes # (auto) 0.19 K/uL (0.24-0.82); Monocytes % (auto) 11.7 %; Neutrophils # (auto) 0.92 K/uL (1.4-6.5); Neutrophils % (auto) 56.9 %; Ovalocytes 1+; Polychromasia 1+
[2022-02-26] MEDS ORDERED: ACETAMINOPHEN 500 MG TAB PO STA (10:35)
[2022-02-26] MEDS ORDERED: CEFEPIME 2,000 MG/20 ML VIAL IV STA (10:40)
[2022-02-26] MEDS ORDERED: VANCOMYCIN HCL 2,250 MG in SODIUM CHLORIDE 0.9% 500 ML IV ONE (11:19)
[2022-02-26] MEDS ORDERED: VANCOMYCIN CONSULT ACTIVE PRN (11:19)
[2022-02-26 11:42] LABS: Influenza A virus by PCR Negative (Neg); Influenza B virus by PCR Negative (Neg); RSV by PCR Negative (Neg)
[2022-02-26 12:00] LABS: SARS CoV2 RNA(COVID-19) Ceph POSITIVE (Negative)
--- NOTE | 2022-02-26 13:24 | History and Physical Report ---
DATE OF ADMISSION: 02/26/2022. CHIEF COMPLAINT: Severe back pain, fever. HISTORY OF PRESENT ILLNESS: A 57-year-old female with past medical history significant for history of breast cancer, status post bilateral mastectomy in 2017, status post chemo, history of ovarian cancer, status post total abdominal hysterectomy and bilateral salpingo-oophorectomy in 2017 and also status post chemo, BRCA positive, hypothyroidism, history of MDS, status post stem cell transplant in 10/2021, at [facility] and has mixed Chimer plan to start chemo on 03/01/2022 while she is waiting for donor leukocyte infusions as per hem/onc. She has had COVID a couple of weeks ago and she was in [facility] for 1 week. She still has mild cough. She is having back pain for the last 1 week, which is progressively worsening. Today, she has severe back pain, that is the reason she came to the hospital. In the ER, she had a temperature spike and also found to have pancytopenia. Hemoglobin was 6.5, white count of 1.62, platelets of 20. Oncology was notified by the ER and recommended 2 units of PRBC transfusion and 1 unit of plateletpheresis. Rapid COVID is negative, but PCR came back positive. She is resting comfortably, hemodynamically stable. Denies any headache. No blurred visions, no earache, no runny nose, no sore throat. She still has mild cough, brings once in a while whitish phlegm. Appetite is okay. No difficulty swallowing. No chest pain. She gets short of breath with climbing steps. No nausea, no vomiting, no abdominal pain. She is still constipated. She is having small amount of bowel movements only, but denies any blood in stools. No hematuria. Today, she noticed burning micturition. No swelling in the legs, no rash. ALLERGIES: No known drug allergies. PAST MEDICAL HISTORY: As mentioned above. PAST SURGICAL HISTORY: Bilateral mastectomy, total abdominal hysterectomy with bilateral salpingo-oophorectomy, colonoscopies, dental surgery, tubal ligation, cataract surgeries. MEDICATIONS: The patient is on acyclovir 400 mg p.o. b.i.d., calcium carbonate 500 mg p.o. t.i.d. p.r.n., calcium carbonate plus vitamin D one tablet p.o. a.m., vitamin D 125 mcg p.o. a.m., Jardiance 10 mg p.o. daily, exemestane 25 mg p.o. a.m., lansoprazole 30 mg p.o. daily, letermovir 480 mg p.o. daily, levothyroxine 112 mcg p.o. daily, multivitamin 1 tablet p.o. daily, Zofran 8 mg p.o. q.6 hours p.r.n., posaconazole delayed release 300 mg p.o. daily, prochlorperazine 10 mg p.o. q.6 hours p.r.n., Bactrim 1 tablet p.o. b.i.d., tacrolimus 0.5 mg p.o. daily, ursodiol 300 mg p.o. b.i.d. FAMILY HISTORY: Significant for daughter has thyroid disorder, sister has diabetes, maternal grandmother had chronic renal failure. SOCIAL HISTORY: , no smoking, no alcohol, no drug use. REVIEW OF SYSTEMS: As per HPI. Rest of the review of systems is negative. PHYSICAL EXAMINATION: GENERAL: The patient is of moderate build, not in acute distress. VITAL SIGNS: Temperature T-max 38.4, pulse 88, respiratory rate 18, blood pressure 94/58, oxygen 97% on room air. HEENT: Pupils equal, round and reactive to light. Oral mucosa moist. NECK: No JVD or neck masses. CARDIOVASCULAR: S1 and S2 heard. Regular rate and rhythm. No murmur, no gallop. RESPIRATORY SYSTEM: Normal AP diameter. No accessory muscle use. No wheezing, no crackles. ABDOMEN: Soft, bowel sounds present, nontender, no distention. CENTRAL NERVOUS SYSTEM: Alert and oriented. Speech is clear. No facial droop. Insight is good. He obeys simple commands. Lower extremity power5/5. MUSCULOSKELETAL: Bilateral lower extremity straight leg raise test negative. EXTREMITIES: No edema, no erythema. LABORATORY DATA: WBC 1.6, hemoglobin 6.5, hematocrit 19.6, platelets 20. PT 12.1, INR 1.1, APTT 29.5. Sodium 139, potassium 4, chloride 106, bicarbonate 23, BUN 16, creatinine 0.8, serum glucose 88. Lactate 0.8, calcium 9.4, total bilirubin 0.5, AST 10, ALT 13, alkaline phosphatase 94. Troponin I high sensitivity 6. Procalcitonin 0.12. Urinalysis negative. SARS-CoV-2 PCR positive. Influenza A and B PCR negative. RSV PCR negative. IMAGING: Lumbar spine x-ray: No acute lumbar spine fracture or subluxation. Mild multiple degenerative changes within the lumbar spine. KUB x-ray: No evidence of bowel obstruction. Mild to moderate fecal retention. Chest x-ray: No acute process. EKG: Normal sinus rhythm, rate of 95. Minor nonspecific T-wave abnormalities. ASSESSMENT AND PLAN: This is a 57-year-old female who presents with back pain and found to have a temperature spike in the Emergency Room and also pancytopenia. 1. Febrile neutropenia. Started on vancomycin and cefepime. Follow the cultures. IV fluid normal saline at 100 mL per hour and closely monitor in the telemetry floor. Lactic acid is okay. Blood pressure usually soft looking at the previous records.Neutropenic precautions 2. Myelodysplastic syndrome, status post stem cell transplant in 10/2021 at [facility]. Currently to start on chemotherapy on 03/01/2022, while awaiting for donor leukocyte transfusions. Hematology/oncology was notified, recommended 2 units of packed red blood cells and 1 unit of plateletpheresis, which will be given. We will follow the repeat laboratories. 3. History of breast cancer, history of ovarian cancer, bilateral mastectomy in 2017 and total abdominal hysterectomy and bilateral salpingo-oophorectomy in 2017, status post chemotherapy. Follows up with hematology/oncology. Currently on exemestane. 4. Hypothyroidism, on Synthroid. 5. Diabetes, holding Jardiance. Place her on insulin sliding scale. Follow the blood sugars. 6.Covid. Had Covid couple of weeks and was treated for one week in [facility]. Doesn't seem to have symptoms. Will do covid precautions. 7.. Deep venous thrombosis prophylaxis, sequential compression devices. The patient has thrombocytopenia. DISPOSITION: Closely monitor in the tele floor. If the patient deteriorates, transfer to [facility] as per my discussion with the hem/onc. Level 1, full code. Addendum: Neris is going to check with Claudette and her and let us know if she still on Bactrim, Letermovir and Cellcept. Job ID: [id number] [facility]
[2022-02-26] MEDS ORDERED: DEXTROSE 50% 50 ML SYRINGE IV PRN (14:45)
[2022-02-26] MEDS ORDERED: GLUCOSE 10 TAB/TUBE PO PRN (14:45)
[2022-02-26] MEDS ORDERED: TACROLIMUS 0.5 MG CAP PO SCH (14:45)
[2022-02-26] MEDS ORDERED: PROCHLORPERAZINE MALEATE 10 MG TAB PO PRN (14:45)
[2022-02-26] MEDS ORDERED: ONDANSETRON INJ 2 MG/ML 2 ML VIAL IV PRN (14:45)
[2022-02-26] MEDS ORDERED: SODIUM CHLORIDE 0.9% 1000ML 1,000 ML IV SCH (14:45)
[2022-02-26] MEDS ORDERED: GLUCAGON FOR INJ 1 MG VIAL SQ PRN (14:45)
[2022-02-26] MEDS ORDERED: POLYETHYLENE (MIRALAX) 17 GM PACK PO PRN (14:45)
[2022-02-26] MEDS ORDERED: ACETAMINOPHEN 325 MG TAB PO PRN (14:45)
[2022-02-26] MEDS ORDERED: CARBOHYDRATES FOR HYPOGLYCEMIA PO PRN (14:45)
[2022-02-26] MEDS ORDERED: bisacodyL 10 MG SUPP PR STA (14:45)
[2022-02-26] MEDS ORDERED: NITROGLYCERIN SL 0.4 MG/TAB TAB SL PRN (14:45)
[2022-02-26] MEDS ORDERED: LACTULOSE SYRUP 30 GM/45 ML UDP PO STA (14:45)
[2022-02-26] MEDS ORDERED: GLUCOSE 40% GEL 15 GM TUBE PO PRN (14:45)
[2022-02-26] MEDS ORDERED: SULFAMETHOXAZOLE/TRIMETHOPRIM DS 800/160MG TAB PO SCH (14:45)
[2022-02-26] MEDS ORDERED: CALCIUM CARBONATE 500 MG CHEWABLE TAB PO PRN (14:56)
[2022-02-26] MEDS ORDERED: bisacodyL 5 MG TABEC PO ONE (17:47)
[2022-02-26] MEDS: INSULIN ASPART PER UNIT SC SCH ×2 (18:10→20:47)
--- NOTE | 2022-02-26 20:05 | Communication Note ---
Date of Service: February 26, 2022 Patient denies to be on tacrolimus and cellcept. Patient is good historian.Please double check with heme/onco. Thanks
[2022-02-26] MEDS ORDERED: FUROSEMIDE INJ 20 MG/2 ML VIAL IV ONE (20:08)
[2022-02-26] MEDS ORDERED: VANCOMYCIN HCL 1,500 MG in SODIUM CHLORIDE 0.9% 500 ML IV SCH (21:00)
[2022-02-26] MEDS: ursodioL 300 MG CAP PO SCH (21:33)
[2022-02-26] MEDS: ACYCLOVIR 400 MG TAB PO SCH (21:33)
[2022-02-26] MEDS: CEFEPIME 2,000 MG in SYRINGE 0 ML IV SCH (21:37)
[2022-02-27] MEDS: LEVOTHYROXINE SODIUM 112 MCG TABLET PO SCH (05:38)
[2022-02-27 06:44] LABS: BUN Creatinine Ratio 19.1 (10-20); Calcium 8.2 mg/dl (8.5-10.1); Est GFR (African American) 113.3 ml/min; Est GFR (Non-African American) 97.8 ml/min; Hematocrit (blood only) 24.7 % (34.1-44.9); Hemoglobin 8.6 g/dl (12.0-16.0); Magnesium 1.9 mg/dl (1.7-2.4); Mean Corpuscular Hgb Conc 34.8 g/dL (32.0-36.0); Mean Corpuscular Volume 86.1 fL (80.0-100.0); Mean Platelet Volume 10.2 fL (9.4-12.3); Nucleated RBC # (auto) 0.03 K/uL (0-0); Nucleated RBC % (auto) 1.9 %; Platelet Count 25 K/uL (130-400); Potassium 3.9 mmol/L (3.5-5.1); RDW Coefficient of Variation 15.6 % (11.5-14.5); RDW Standard Deviation 46.8 fL (36.4-46.3); Red Blood Count 2.87 M/uL (3.93-5.22); White Blood Count 1.59 K/ul (4.8-10.8)
[2022-02-27 07:03] LABS: Basophils # (auto) 0.01 K/uL (0-0.2); Basophils % (auto) 0.6 %; Eosinophils # (auto) 0.02 K/uL (0-0.50); Eosinophils % (auto) 1.3 %; Immature Granulocytes # (auto) 0.01 K/uL (0.00-0.02); Immature Granulocytes % (auto) 0.6 %; Lymphocytes % (auto) 37.7 %; Monocytes # (auto) 0.21 K/uL (0.24-0.82); Monocytes % (auto) 13.2 %; Neutrophils # (auto) 0.74 K/uL (1.4-6.5); Neutrophils % (auto) 46.6 %
[2022-02-27] MEDS: INSULIN ASPART PER UNIT SC SCH ×5 (08:14→20:33)
--- NOTE | 2022-02-27 08:26 | Oncology Consultation ---
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 She presented with back pain and was found to have anemia with hemoglobin of 6.5 and 1 episode of fever for which she was admitted. She is s/p 2 units of PRBC transfusion with improvement in hemoglobin to 8.6 and platelet count of 25,000 after also receiving platelet transfusion. -If she has no more fever and blood cultures are negative, she can be discharged home to follow-up in oncology clinic on Tuesday as scheduled. -Suspect that her positive PCR is from her previous infection. As long as she remains afebrile for the next 48 hours, we will plan to start azacitidine as scheduled on 03/01/2022 prior to scheduled DLI on 03/08/2022 Thank you for this consult. Hematology will plan to see her upon discharge from hospital. Please feel free to call if you have any further questions History of Present Illness Reason for Consultation: pancytopenia, MDS Attending Physician: Giovanni Leon MD History of Present Illness Ms. Cowan is a very pleasant 57-year-old patient known to me at [facility]. She has a history of BRCA2 mutation, breast cancer, ovarian cancer and therapy related MDS for which she is s/p allogeneic stem cell transplant at [facility] on 10/14/2021. About 2 months posttransplant, she was noted to have decreased total T-cell chimerism for which she is being primed with azacitidine chemotherapy prior to donor lymphocyte infusion scheduled for 03/08/2022. She last received azacitidine on 02/08/2022 x1 day but did not complete 5-day treatment due to COVID-19 infection for which she was admitted at [facility]. She presented to the ER at [facility] yesterday with complaints of 1 week of back pain. While in the ER, she was found to have fever with temperature 38.4 C orally.imaging obtained include lumbar spine x-ray, KUB and chest x-ray were unrevealing except for mild to moderate fecal retention. Labs revealed pancytopenia as expected with hemoglobin of 6.5, platelet count of 20,000 and white cell count of 1.62 with ANC of 0.92. She was started on broad- spectrum antibiotics. COVID-19 PCR was positive. Urinalysis was negative for infection, blood cultures were pending at time of today's visit. She states that she is doing a lot better. Complains of mild cough which she states is significantly improved from 2 weeks ago. Denies fever, chills, chest pain, shortness of breath or any other issues. Allergies Allergy/AdvReac Type Severity Reaction Status Date / Time No Known Allergies Allergy Verified 02/02/22 06:56 Home Medications Medication Instructions Recorded Confirmed Type calcium carbonate 600 mg-vitamin 1 tab PO QAM 06/30/21 02/26/22 History D3 5 mcg (200 unit) tablet (Calcium 600 + D(3)) cholecalciferol (vitamin D3) 125 125 mcg PO QAM 06/30/21 02/26/22 History mcg (5,000 unit) tablet (Vitamin D3) exemestane 25 mg tablet 25 mg PO QAM 06/30/21 02/26/22 History levothyroxine 112 mcg tablet 112 mcg PO DAILYBB 06/30/21 02/26/22 History ondansetron HCl 8 mg tablet 8 mg PO Q6H PRN Nausea And Vomiting 06/30/21 02/26/22 History prochlorperazine maleate 10 mg 10 mg PO Q6H PRN Nausea And 06/30/21 02/26/22 History tablet Vomiting acyclovir 400 mg tablet 400 mg PO BID 12/25/21 02/26/22 History calcium carbonate 500 mg calcium 500 mg PO TID PRN unknown 12/25/21 02/26/22 H istory (1,250 mg) chewable tablet empagliflozin 10 mg tablet 10 mg PO DAILY 12/25/21 02/26/22 History (Jardiance) lansoprazole 30 mg capsule,delayed 30 mg PO DAILY 12/25/21 02/26/22 History release letermovir 480 mg tablet 480 mg PO DAILY 12/25/21 02/26/22 History multivitamin 1 tab PO DAILY 12/25/21 02/26/22 History posaconazole 100 mg tablet,delayed 300 mg PO DAILY 12/25/21 02/26/22 History release sulfamethoxazole 800 1 tab PO BID 12/25/21 02/26/22 History mg-trimethoprim 160 mg tablet (Bactrim DS) ursodiol 300 mg capsule 300 mg PO BID 12/25/21 02/26/22 History Patient History Medical History BRCA gene mutation positive Cancer of central portion of right female breast (06/08/16) Elevated troponin Hx of breast cancer hx 2017 s/p b/l masectomy, XRT and chemo Hx of ovarian cancer IRENA BSO 01/2017 Hypothyroidism Pneumonia Sepsis Surgical History History of bilateral mastectomy History of cataract extraction History of total abdominal hysterectomy and bilateral salpingo-oophorectomy Hx of colonoscopy with polypectomy last c scope 05/2021 WNL Family History Other Breast cancer Diabetes Social History Smoking Status: Never smoker Hx Alcohol Use: Yes Alcohol type: wine Alcohol Intake Frequency: Monthly or Less Hx Substance Use: No Preferred Language: Angolan Communication Ability: Effective Pharmacist Critical Care Required: No Beliefs That Will Affect Care: None marital status: Current Living Situation: Spouse Feels Safe at Home: Yes Safety Concerns: Feels Safe At This Time Assistive Devices: None Review of Systems Review of Systems: All systems reviewed & are unremarkable except as noted in HPI & below Physical Exam Constitutional: WD/WN, vitals as above Eyes: PERRL, conjunctivae normal, anicteric sclerae ENMT: external ear and nose normal, oropharynx normal Results & Data ([facility]) Vital Signs (Past 12 Hours) Vital Signs Temp Pulse Pulse Resp BP BP BP 02/27/22 07:50 36.8 C 88 20 105/66 02/27/22 03:00 37.3 C 80 18 108/69 02/27/22 01:39 85 02/27/22 00:39 37.1 C 68 16 110/66 02/26/22 22:52 37.3 C 82 18 110/80 02/26/22 22:22 37.5 C 78 16 104/57 L 02/26/22 22:07 36.8 C 73 18 99/60 L 02/26/22 22:07 36.8 C 73 18 99/60 L 02/26/22 21:51 36.7 C 82 135/78 Pulse Ox O2 Del Method 02/27/22 07:50 96 Room Air 02/27/22 03:00 98 Room Air 02/27/22 01:39 02/27/22 00:39 92 02/26/22 22:52 100 02/26/22 22:22 100 02/26/22 22:07 98 02/26/22 22:07 98 Room Air 02/26/22 21:51 97 (1) Neutropenia Neutropenia type: unspecified Qualified Code(s): D70.9 - Neutropenia, unspecified (2) Anemia Anemia type: unspecified type Qualified Code(s): D64.9 - Anemia, unspecified
[2022-02-27] MEDS: ursodioL 300 MG CAP PO SCH ×2 (08:29→21:02)
[2022-02-27] MEDS: CALCIUM 600MG + VIT D 400 IU TAB PO SCH (08:30)
[2022-02-27] MEDS: MULTIVITAMIN TAB PO SCH (08:30)
[2022-02-27] MEDS: CHOLECALCIFEROL 5,000 UNITS 125 MCG TAB PO SCH (08:30)
[2022-02-27] MEDS: EXEMESTANE PO SCH (08:30)
[2022-02-27] MEDS: ACYCLOVIR 400 MG TAB PO SCH ×2 (08:30→21:01)
[2022-02-27] MEDS: PANTOprazole 40 MG TAB PO SCH (08:30)
[2022-02-27] MEDS: LETERMOVIR 480 MG PO SCH (08:31)
[2022-02-27] MEDS: POSACONAZOLE PO SCH (08:31)
--- NOTE | 2022-02-27 09:35 | Pharmacy Report ---
Pharmacy PK ABX Note - Date of Service February 27, 2022 - Assessment and Plan Assessment 57 year old F receiving vancomycin and cefepime empirically in the setting of febrile neutropenia. Blood cultures pending. Renal function stable. Day # 2 of antimicrobial therapy. Plan Vancomycin * Loading dose: 2250 mg IV x 1 * Maintenance dose: 1500mg IV q18 adjusted to 1250 mg IV every 12 hours today for changing SCr * Regimen is predicted to achieve target AUC/JAS of 400-600 mg/L.hr * Random level tomorrow AM Pharmacy will continue to follow and will adjust dose/frequency as necessary. Thank you. Pharmacy has transitioned to AUC monitoring for vancomycin. AUC/JAS is the preferred PK/PD target and is associated with decreased risk of nephrotoxicity compared to traditional trough targets.
[2022-02-27] MEDS ORDERED: VANCOMYCIN HCL 1,250 MG in SODIUM CHLORIDE 0.9% 250 ML IV SCH (10:00)
[2022-02-27] MEDS: CEFEPIME 2,000 MG in SYRINGE 0 ML IV SCH (10:44)
--- NOTE | 2022-02-27 14:05 | Hospitalist Progress Note ---
Date of Service February 27, 2022 Assessment & Plan (1) Low back pain: Plan 57-year-old lady with PMH of breast cancer status post bilateral mastectomy 2017 and chemo, ovarian cancer status post IRENA/BSO 2016 and chemo, BRCA positive, hypothyroidism, MDS status post stem cell transplant October 2021 at [facility] and has mixed Chimer & plan to start chemo on 03/01/2022 while she is waiting for donor leukocyte infusion, COVID 19 infection around 2.5 weeks ago [employer] presented 02/26 to our ED with low back pain worsening for 1 to 2 weeks prior to arrival. Of note, patient had temperature spike noted in the ED but patient did not feel feverish [she states that she generally knows when she is febrile], and was also found to have pancytopenia. She is being managed for the following: Febrile neutropenia: Patient came in with presentation of low back pain for 1 to 2 weeks [employer], worsening and found to have temperature of 38.4C at presentation. Patient was started on cefepime and vancomycin 02/26. No acute changes in bowel and bladder palpation, urine analysis at admission negative for UTI. Patient reports improving cough since COVID 2.5 weeks ago [employer], with clear sputum. Patient does not have tenderness along the vertebral line. Admitting CXR/KUB x-ray/lumbar spine x-ray with no acute findings. Patient has been afebrile, reports improvement in her low back pain, ANC 0.74K. 02/26 blood culture: No growth for 24 hours, continue to follow-up. Follow-up on ANC tomorrow, continue with IV antibiotic for now. Neutropenic precautions. Reached out to [facility] [employer] [facility], recommends observation off of antibiotic and if not fever, can DC by suleman evening. Low back pain: Admitting lumbar x-ray with no acute findings, has received morphine 2 mg IV in the evening of presentation, has not received any other pain medication, patient reports resolution of her low back pain. No vertebral line tenderness on exam. We will continue to monitor. History of cancers: Myelodysplastic syndrome status post stem cell transplant in October 2021 at [facility], plan for starting chemo on 03/01/2022, while awaiting for donor leukocyte transfusion. Patient with low platelets and low hemoglobin at presentation, status post 2 units of PRBC and 1 unit of platelet pheresis. Heme-onc evaluated. Appreciate recommendation. Breast cancer status post bilateral mastectomy 2017 and ovarian cancer status post IRENA/BSO 2017: Is status postchemotherapy for both. Follows heme-onc. Currently on exemestane. Other chronic medical conditions: Hypothyroidism, diabetes--> continue with home meds as able. DVT prophylaxis: SCDs, patient with thrombocytopenia Disposition: Likely tomorrow. Full code Admission and Anticipated Discharge Date Admission Date: February 26, 2022 Subjective Patient seen and examined at bedside as a follow-up for febrile neutropenia and low back pain. Patient was lying in bed, room air, NAD, denies any new acute events overnight, reports eating okay and moving bowels okay, reports improvement/resolution of her back pain, reports feeling better, patient denies feeling febrile prior to a rrival, patient also denies feeling febrile during that time temperature was noted to be elevated while in hospital, patient reports that generally she feels the fever. Patient denies any worsening cough. Patient had COVID diagnosed almost 2 and half weeks ago and is left with minimal cough per patient with clear sputum. Patient did not have any tenderness along the vertebral line on examination, patient does not have any open skin wound anywhere in the body, does not have any mouth sore. Patient does not have any chest pain or belly pain. Patient reports having low back pain since 2 weeks [employer] which has been resolved by now. Physical Exam Physical Exam: GENERAL: Alert and oriented x3. NAD, on RA. HEENT: No pallor, no icterus. Pupils equal, round and reactive to light. Oral mucosa moist. NECK: No JVD, no neck masses. HEART: S1 and S2 heard. Regular rate and rhythm. No murmur, no gallop. RESPIRATORY SYSTEM: Normal AP diameter. No accessory muscle use. No wheezing, no crackles. ABDOMEN: Soft, bowel sounds present, nontender, no distention. CENTRAL NERVOUS SYSTEM: No facial droop. Speech is clear. Obeys simple commands. Moves extremities. EXTREMITIES: No edema, no erythema seen. No open/skin wounds. No vertebral line tenderness. Results & Data Results & Data ([facility]) Vital Signs (Past 12 Hours) Vital Signs Temp Pulse Resp BP BP Pulse Ox O2 Del Method 02/27/22 10:52 36.8 C 72 20 99/62 L 98 Room Air 02/27/22 07:50 36.8 C 88 20 105/66 96 Room Air 02/27/22 03:00 37.3 C 80 18 108/69 98 Room Air (1) Low back pain Back pain laterality: midline Chronicity: acute Sciatica presence: without sciatica Qualified Code(s): M54.50 - Low back pain, unspecified
[2022-02-28] MEDS: LEVOTHYROXINE SODIUM 112 MCG TABLET PO SCH (05:38)
[2022-02-28] MEDS: INSULIN ASPART PER UNIT SC SCH ×2 (08:01→11:49)
[2022-02-28] MEDS: EXEMESTANE PO SCH (09:13)
[2022-02-28] MEDS: ursodioL 300 MG CAP PO SCH (09:13)
[2022-02-28] MEDS: ACYCLOVIR 400 MG TAB PO SCH (09:13)
[2022-02-28] MEDS: MULTIVITAMIN TAB PO SCH (09:13)
[2022-02-28] MEDS: PANTOprazole 40 MG TAB PO SCH (09:13)
[2022-02-28] MEDS: CHOLECALCIFEROL 5,000 UNITS 125 MCG TAB PO SCH (09:13)
[2022-02-28] MEDS: CALCIUM 600MG + VIT D 400 IU TAB PO SCH (09:13)
[2022-02-28] MEDS: LETERMOVIR 480 MG PO SCH (09:14)
[2022-02-28] MEDS: POSACONAZOLE PO SCH (09:14)
[2022-02-28 09:19] LABS: Hematocrit (blood only) 30.4 % (34.1-44.9); Hemoglobin 10.3 g/dl (12.0-16.0); Mean Corpuscular Hemoglobin 29.7 pg (25.0-34.0); Mean Corpuscular Hgb Conc 33.9 g/dL (32.0-36.0); Mean Corpuscular Volume 87.6 fL (80.0-100.0); Mean Platelet Volume 10.7 fL (9.4-12.3); Platelet Count 29 K/uL (130-400); RDW Coefficient of Variation 15.9 % (11.5-14.5); RDW Standard Deviation 48.8 fL (36.4-46.3); Red Blood Count 3.47 M/uL (3.93-5.22); White Blood Count 1.75 K/ul (4.8-10.8)
[2022-02-28 09:57] LABS: Eosinophils # (auto) 0.03 K/uL (0-0.50); Eosinophils % (auto) 1.7 %; Immature Granulocytes # (auto) 0.02 K/uL (0.00-0.02); Immature Granulocytes % (auto) 1.1 %; Lymphocytes # (auto) 0.86 K/uL (1.2-3.4); Lymphocytes % (auto) 49.1 %; Monocytes # (auto) 0.13 K/uL (0.24-0.82); Monocytes % (auto) 7.4 %; Neutrophils # (auto) 0.71 K/uL (1.4-6.5); Neutrophils % (auto) 40.7 %
[2022-02-28 10:44] LABS: BUN Creatinine Ratio 22.7 (10-20); Calcium 9.8 mg/dl (8.5-10.1); Creatinine Clr Calc Pharmacy 101.3 ml/min; Est GFR (African American) 114.5 ml/min; Est GFR (Non-African American) 98.8 ml/min; Potassium 3.8 mmol/L (3.5-5.1)
--- NOTE | 2022-02-28 11:40 | Discharge Summary ---
Date of Service February 28, 2022 Admission HPI Per Admitting Provider DATE OF ADMISSION: 02/26/2022. CHIEF COMPLAINT: Severe back pain, fever. HISTORY OF PRESENT ILLNESS: A 57-year-old female with past medical history significant for history of breast cancer, status post bilateral mastectomy in 2017, status post chemo, history of ovarian cancer, status post total abdominal hysterectomy and bilateral salpingo-oophorectomy in 2017 and also status post chemo, BRCA positive, hypothyroidism, history of MDS, status post stem cell transplant in 10/2021, at [facility] and has mixed Chimerplan to start chemo on 03/01/2022 while she is waiting for donor leukocyte infusions as per hem/onc. She has had COVID a couple of weeks ago and she was in [facility] for 1 week. She still has mild cough. She is having back pain for the last 1 week, which is progressively worsening. Today, she has severe back pain, that is the reason she came to the hospital. In the ER, she had a temperature spike and also found to have pancytopenia. Hemoglobin was 6.5, white count of 1.62, platelets of 20. Oncology was notified by the ER and recommended 2 units of PRBC transfusion and 1 unit of plateletpheresis. Rapid COVID is negative, but PCR came back positive. She is resting comfortably, hemodynamically stable. Denies any headache. No blurred visions, no earache, no runny nose, no sore throat. She still has mild cough, brings once in a while whitish phlegm. Appetite is okay. No difficulty swallowing. No chest pain. She gets short of breath with climbing steps. No nausea, no vomiting, no abdominal pain. She is still constipated. She is having small amount of bowel movements only, but denies any blood in stools. No hematuria. Today, she noticed burning micturition. No swelling in the legs, no rash. ALLERGIES: No known drug allergies. PAST MEDICAL HISTORY: As mentioned above. PAST SURGICAL HISTORY: Bilateral mastectomy, total abdominal hysterectomy with bilateral salpingo-oophorectomy, colonoscopies, dental surgery, tubal ligation, cataract surgeries. MEDICATIONS: The patient is on acyclovir 400 mg p.o. b.i.d., calcium carbonate 500 mg p.o. t.i.d. p.r.n., calcium carbonate plus vitamin D one tablet p.o. a.m., vitamin D 125 mcg p.o. a.m., Jardiance 10 mg p.o. daily, exemestane 25 mg p.o. a.m., lansoprazole 30 mg p.o. daily, letermovir 480 mg p.o. daily, levothyroxine 112 mcg p.o. daily, multivitamin 1 tablet p.o. daily, Zofran 8 mg p.o. q.6 hours p.r.n., posaconazole delayed release 300 mg p.o. daily, prochlorperazine 10 mg p.o. q.6 hours p.r.n., Bactrim 1 tablet p.o. b.i.d., tacrolimus 0.5 mg p.o. daily, ursodiol 300 mg p.o. b.i.d. FAMILY HISTORY: Significant for daughter has thyroid disorder, sister has diabetes, maternal grandmother had chronic renal failure. SOCIAL HISTORY: , no smoking, no alcohol, no drug use. REVIEW OF SYSTEMS: As per HPI. Rest of the review of systems is negative. Admission Exam Per Admitting Provider GENERAL: The patient is of moderate build, not in acute distress. VITAL SIGNS: Temperature T-max 38.4, pulse 88, respiratory rate 18, blood pressure 94/58, oxygen 97% on room air. HEENT: Pupils equal, round and reactive to light. Oral mucosa moist. NECK: No JVD or neck masses. CARDIOVASCULAR: S1 and S2 heard. Regular rate and rhythm. No murmur, no gallop. RESPIRATORY SYSTEM: Normal AP diameter. No accessory muscle use. No wheezing, no crackles. ABDOMEN: Soft, bowel sounds present, nontender, no distention. CENTRAL NERVOUS SYSTEM: Alert and oriented. Speech is clear. No facial droop. Insight is good. He obeys simple commands. Lower extremity power5/5. MUSCULOSKELETAL: Bilateral lower extremity straight leg raise test negative. EXTREMITIES: No edema, no erythema. Principal Diagnosis Low back pain Concern for febrile neutropenia, ruled out History of cancer, ongoing management Discharge Exam GENERAL: Alert and oriented x3. NAD, on RA. HEENT: No pallor, no icterus. Pupils equal, round and reactive to light. Oral mucosa moist. NECK: No JVD, no neck masses. HEART: S1 and S2 heard. Regular rate and rhythm. No murmur, no gallop. RESPIRATORY SYSTEM: Normal AP diameter. No accessory muscle use. No wheezing, no crackles. ABDOMEN: Soft, bowel sounds present, nontender, no distention. CENTRAL NERVOUS SYSTEM: No facial droop. Speech is clear. Obeys simple commands. Moves extremities. EXTREMITIES: No edema, no erythema seen. No open/skin wounds. No vertebral line tenderness. Discharge Data Allergies Allergy/AdvReac Type Severity Reaction Status Date / Time No Known Allergies Allergy Verified 02/02/22 06:56 Consultations 02/26/22 10:58 ED Decision to Admit Stat 02/26/22 14:45 Consult Oncology Routine Hospital Course (1) Low back pain: Plan 57-year-old lady with PMH of breast cancer status post bilateral mastectomy 2016 and chemo, ovarian cancer status post IRENA/BSO 2016 and chemo, BRCA positive, hypothyroidism, MDS status post stem cell transplant October 2021 at [facility] and has mixed Chimer & plan to start chemo on 03/01/2022 while she is waiting for donor leukocyte infusion, 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 Of note, patient had temperature spike noted in the ED but patient did not feel feverish [she states that she generally knows when she is febrile], and was also found to have pancytopenia. She was managed for the following: Febrile neutropenia: Patient came in with presentation of low back pain for 1 to 2 weeks [employer], worsening and found to have temperature of 38.4C at presentation. Patient was started on cefepime and vancomycin 02/26. No acute changes in bowel and bladder palpation, urine analysis at admission negative for UTI. Patient reports improving cough since COVID 2.5 weeks ago [employer], with clear sputum. Patient does not have tenderness along the vertebral line. Admitting CXR/KUB x-ray/lumbar spine x-ray with no acute findings. Patient has been afebrile except for 1 episode of temp. at presentation, reports improvement in her low back pain, ANC 0.71K. 02/26 blood culture: No growth for 24 hours, continue to follow-up. Pt to follow up on the final results at PCP or oncology office. 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 --> Antibiotic held and patient with no fever, pt feels better, no back pain, hemodynamically stable. Low back pain: Admitting lumbar x-ray with no acute findings, has received morphine 2 mg IV in the evening of presentation, has not received any other pain medication, patient reports resolution of her low back pain. No vertebral line tenderness on exam. Can use OTC tylenol as needed for low back pain. History of cancers: Myelodysplastic syndrome status post stem cell transplant in October 2021 at [facility], plan for starting chemo on 03/01/2022, while awaiting for donor leukocyte transfusion. Patient with low platelets and low hemoglobin at presentation, status post 2 units of PRBC and 1 unit of platelet pheresis. Heme-onc evaluated. Appreciate recommendation. Breast cancer status post bilateral mastectomy 2016 and ovarian cancer status post IRENA/BSO 2017: Is status postchemotherapy for both. Follows heme-onc. Currently on exemestane. Other chronic medical conditions: Hypothyroidism, diabetes--> continue with home meds as able. DVT prophylaxis: SCDs, patient with thrombocytopenia Full code Pt being discharged to home with following instructions at the point of discharge: Follow up with your primary care physician with in a week time and likely you will need blood tests cbc/cmp/Mg/Phosphorous level. Your 02/26/22 blood culture is negative for growth so far, we generally wait for total of 5 days before we say negative blood culture. Please follow up on the final results of the blood culture with either your primary care physician or your oncology. If blood culture becomes positive during these 5 days, you will need to come back to the hospital. Since you have not developed any further fever despite being off of antibiotic, and in conjunction with other tests, an infection has been ruled out at this moment. But if you have any fever, let your primary care physician or emergency department know about it immediately. You can use OTC Tylenol 500mg for your lower back pain as needed upto 3-4 times a day Follow up with your oncology as scheduled prior. Take your medications as prescribed. [facility] Attestation I certify that this patient is under my care and that I, or a physicians speech language assistant working with me, had a face to-face encounter that meets the formerly [facility] [id number] encounter requirements with this patient. The encounter with the patient was in whole, or in part, for the following medical condition, which is the primary reason for home health care (list medical condition): I certify that, based on my findings, the following services are medically necessary home health services: My clinical findings support the need for the above services because: Further, I certify that my clinical findings support that this patient is homebound (i.e. absences from home require considerable and taxing effort and are for medical reasons or restoration services or infrequently or of short duration when for other reasons) because: Certification for Home Health Services: Based on the above findings, I certify that this patient is confined to the home and needs intermittent prison care, physical therapy and/or speech therapy or continues to need occupational therapy. The patient is under my care, and I have initiated the establishment of the plan of care. This patient will be followed by a physician who will periodically review the plan of care. Total Time Total Time Spent Total Time Spent (In Minutes): 40 Discharge Plan Discharge Items Patient Disposition: Home - Self-Care Reason For Visit: BACK PAIN Discharge Diagnosis: Low back pain Concern for febrile neutropenia, ruled out History of cancer, ongoing management Condition on Discharge: Good Activity: Resume your previous activity Non-emergency contact: Primary Care Provider Call non-emergency contact if: you have any medication questions, your symptoms worsen and your temperature is above 101 Follow-up/Referrals: Marisela Shoemaker PA-C [Primary Care Provider] - Diet: Carb Consistent or DM2 and Heart Healthy Addtl Attending Provider Instructions: Follow up with your primary care physician with in a week time and likely you will need blood tests cbc/cmp/Mg/Phosphorous level. Your 02/26/22 blood culture is negative for growth so far, we generally wait for total of 5 days before we say negative blood culture. Please follow up on the final results of the blood culture with either your primary care physician or your oncology. If blood culture becomes positive during these 5 days, you will need to come back to the hospital. Since you have not developed any further fever despite being off of antibiotic, and in conjunction with other tests, an infection has been ruled out at this moment. But if you have any fever, let your primary care physician or emergency department know about it immediately. You can use OTC tylenol 500mg for your lower back pain as needed upto 3-4 times a day Follow up with your oncology as scheduled prior. Take your medications as prescribed. Pending Studies at Discharge: Yes (Admitting blood culture final results. ) Stand-Alone Forms: My [facility], Smoking Cessation Medications and DC Order Prescriptions: Continued acyclovir 400 mg tablet 400 mg PO BID calcium carbonate 500 mg calcium (1,250 mg) tablet,chewable 500 mg PO TID PRN (Reason: unknown) lansoprazole 30 mg capsule,delayed release(DR/EC) 30 mg PO DAILY Jardiance 10 mg tablet 10 mg PO DAILY letermovir 480 mg tablet 480 mg PO DAILY multivitamin Tablet 1 tab PO DAILY posaconazole 100 mg tablet,delayed release (DR/EC) 300 mg PO DAILY sulfamethoxazole-trimethoprim [Bactrim DS] 800-160 mg tablet 1 tab PO BID Rx Instructions: MTW ursodiol 300 mg capsule 300 mg PO BID ondansetron HCl 8 mg tablet 8 mg PO Q6H PRN (Reason: Nausea And Vomiting) prochlorperazine maleate 10 mg tablet 10 mg PO Q6H PRN (Reason: Nausea And Vomiting) calcium carbonate-vitamin D3 [Calcium 600 + D(3)] 600 mg-5 mcg (200 unit) Tablet 1 tab PO QAM exemestane 25 mg tablet 25 mg PO QAM levothyroxine 112 mcg tablet 112 mcg PO DAILYBB cholecalciferol (vitamin D3) [Vitamin D3] 125 mcg (5,000 unit) Tablet 125 mcg PO QAM Discharge Orders: Discharge Order (Routine); Ordered 02/28/22 Ordered By: Giovanni Leon Admission Data Admit Date/Time: 02/26/22 11:38 Attending Provider: Giovanni Leon Admit Provider: Fredi Esqueda Primary Care Provider: Marisela Shoemaker Other Providers: Fredi Esqueda ; Ashley Bae
[2022-02-28 11:53] VITALS: PULSE 71; TEMP 98.2; O2SAT 100
[2022-02-28 11:54] VITALS: BP 108/69
== END 2022-02-28 13:09 | disposition home or self-care (01) | DRG 808 ==
LOC: ED 08:04 → SUATTDRO 11:38 → EDINP 11:38 → 2S 14:44
DX: U07.1 COVID-19; D70.9 Neutropenia, unspecified; M54.50 Low back pain, unspecified; R50.9 Fever, unspecified; Z94.84 Stem cells transplant status; Z90.13 Acquired absence of bilateral breasts and nipples; D46.9 Myelodysplastic syndrome, unspecified; Z79.84 Long term (current) use of oral hypoglycemic drugs; Z79.899 Other long term (current) drug therapy; D61.818 Other pancytopenia; Z90.710 Acquired absence of both cervix and uterus; E03.9 Hypothyroidism, unspecified; Z85.43 Personal history of malignant neoplasm of ovary; Z85.3 Personal history of malignant neoplasm of breast; E11.9 Type 2 diabetes mellitus without complications

== ENCOUNTER 2022-04-06 18:34 | Observation (INO) ==
[2022-04-06] MEDS ORDERED: OXYMETAZOLINE 0.05% 30 ML BTL ONE (20:08)
[2022-04-06 20:47] LABS: Albumin Globulin Ratio 1.1 (0.9-2); Bilirubin,Total 0.9 mg/dl (0.2-1.0); Calcium 9.3 mg/dl (8.5-10.1); Est GFR (African American) 81.7 ml/min; Est GFR (Non-African American) 70.5 ml/min; Globulin 3.5 gm/dl (2.5-4.0); Potassium 4.5 mmol/L (3.5-5.1); Total Protein 7.5 gm/dl (6.0-8.3)
[2022-04-06 20:54] LABS: Hematocrit (blood only) 25.7 % (34.1-44.9); Hemoglobin 8.8 g/dl (12.0-16.0); Mean Corpuscular Hemoglobin 28.9 pg (25.0-34.0); Mean Corpuscular Hgb Conc 34.2 g/dL (32.0-36.0); Mean Corpuscular Volume 84.5 fL (80.0-100.0); Mean Platelet Volume 10.5 fL (9.4-12.3); Platelet Count 12 K/uL (130-400); Platelet Estimate Signific. Decreased (Normal); RDW Coefficient of Variation 14.2 % (11.5-14.5); RDW Standard Deviation 43.7 fL (36.4-46.3); Red Blood Count 3.04 M/uL (3.93-5.22)
[2022-04-06 21:04] LABS: INR 1.2 (0.9-1.1); Partial Thromboplastin Time 26.6 Seconds (21.0-31.0); Prothrombin Time 12.5 Seconds (9.0-12.0)
--- NOTE | 2022-04-06 21:21 | Emergency Department Note ---
Impression & Plan Anterior epistaxis, Thrombocytopenia ED Provider Note HISTORY OF PRESENT ILLNESS: Patient is a 57-year-old female presenting with epistaxis. Patient reports she developed a spontaneous nosebleed starting at 7 AM today. She has been bleeding constantly since then has been unable to successfully stop her nosebleed with pressure. She has a history of breast and ovarian cancer and is on oral chemotherapy, last round was at the end of February 2022. She reports that she just had a platelet transfusion due to thrombocytopenia. Due to her low platelet count and her continued bleeding, the patient presented to the emergency department for further evaluation. Patient denies any chest pain, shortness of breath, lightheadedness or dizziness. She denies any recent falls or trauma. Patient reports she gets frequent nosebleeds when her platelets are low. ROS: as above PHYSICAL EXAM: Constitutional: Patient appears in no acute distress. HENT: Head: Normocephalic and atraumatic. Eyes: EOMI, PERRL Nose: Small amount of oozing from the left nare. No septal hematoma. Mouth/Throat: Mucous membranes moist. Dried blood in the posterior oropharynx. No active hemorrhage present Neck: Trachea midline. Neck supple. Cardiovascular: RRR, No murmurs, rubs or gallops. Intact distal pulses. Pulmonary/Chest: No respiratory distress. Breath sounds clear and equal b ilaterally. No wheezes or rales. No chest wall tenderness to palpation. Abdominal: BS +. Abdomen soft, no tenderness, rebound or guarding. Back: No midline spinal tenderness, no paraspinal tenderness, no CVA tenderness. Musculoskeletal: No edema, tenderness or deformity noted. Skin: Warm and dry. No rash, erythema, pallor or cyanosis Psychiatric: Appropriate mood and affect for situation. Neurological: Alert and keenly responsive. CN II-XII grossly intact, moving all extremities equally and fully. MDM: - Vitals signs showed tachycardia - History obtained via patient. Patient presents with epistaxis. She has been bleeding for the last 14 hours. Nontraumatic epistaxis. She was thrombocytopenic the other day and received a unit of platelets - Chronic conditions affecting care: ovarian cancer; breast cancer; hypothyroidism; myelodysplastic syndrome (s/p allogenic stem cell transplant in October 2021) - Differential diagnoses include, but are not limited to: anemia; thrombocytopenia; trauma to nose - Order placed for continuous cardiac monitoring. At this time, monitor showed rate of 85 bpm with normal sinus rhythm, per my interpretation. - External medical records reviewed. Patient was admitted to the hospital in February 2022. She was admitted for anemia and fever. She also received a platelet transfusion at that time for platelet count of 25,000. - EKG reviewed by myself showed normal sinus rhythm. Tachycardic with rate of 104 bpm. No acute ischemic changes. QTc 444. Normal intervals. Appears similar to EKG from 02/26/2022. - Laboratory workup interpreted by myself showed pancytopenia (WBC 0.6; Hgb 8.8; plt 12); elevated INR (1.2); stable electrolytes - Patient's nosebleed was treated with Afrin and a nasal clamp per triage protocols. On my assessment, patient having slow oozing and no obvious bleeding. - Given patient's profound thrombocytopenia and continued epistaxis, will transfuse platelets. Patient was consented for 1 unit of irradiated platelets. - Discussion was had with social work job titles about patient's case and need for admission. - Hospitalist, Dr. Esqueda, consulted for admission. - [facility] I provided 33 minutes of critical care time to this patient's care outside of billable procedures. ASSESSMENT AND PLAN: Diagnosis: epistaxis; profound thrombocytopenia; pancytopenia Plan: Admit Past Med/Surg History Medical History BRCA gene mutation positive Cancer of central portion of right female breast (06/08/16) Elevated troponin Hx of breast cancer hx 2017 s/p b/l masectomy, XRT and chemo Hx of ovarian cancer IRENA BSO 01/2017 Hypothyroidism Pneumonia Sepsis Surgical History History of bilateral mastectomy History of cataract extraction History of total abdominal hysterectomy and bilateral salpingo-oophorectomy Hx of colonoscopy with polypectomy last c scope 05/2021 WNL Family History Other Breast cancer Diabetes Social History Smoking Status: Never smoker Hx Alcohol Use: Yes Alcohol type: wine Alcohol Intake Frequency: Monthly or Less Hx Substance Use: No Preferred Language: Greek Communication Ability: Effective Card Doffer Required: No Beliefs That Will Affect Care: None marital status: Current Living Situation: Spouse Feels Safe at Home: Yes Assistive Devices: None Allergies Allergies Allergy/AdvReac Type Severity Reaction Status Date / Time No Known Allergies Allergy Verified 03/26/22 07:15 Home Meds Home Medications Medication Instructions Recorded Confirmed calcium carbonate 600 mg-vitamin 1 tab PO QAM 06/30/21 03/26/22 D3 5 mcg (200 unit) tablet (Calcium 600 + D(3)) cholecalciferol (vitamin D3) 125 125 mcg PO QAM 06/30/21 04/06/22 mcg (5,000 unit) tablet (Vitamin D3) exemestane 25 mg tablet 25 mg PO QAM 06/30/21 04/06/22 levothyroxine 112 mcg tablet 112 mcg PO DAILYBB 06/30/21 04/06/22 ondansetron HCl 8 mg tablet 8 mg PO Q6H PRN Nausea And Vomiting 06/30/21 04/06/22 prochlorperazine maleate 10 mg 10 mg PO Q6H PRN Nausea And 06/30/21 03/26/22 tablet Vomiting acyclovir 400 mg tablet 400 mg PO BID 12/25/21 04/06/22 calcium carbonate 500 mg calcium 500 mg PO TID PRN unknown 12/25/21 03/26/22 (1,250 mg) chewable tablet empagliflozin 10 mg tablet 10 mg PO DAILY 12/25/21 04/06/22 (Jardiance) lansoprazole 30 mg capsule,delayed 30 mg PO DAILY 12/25/21 03/26/22 release letermovir 480 mg tablet 480 mg PO DAILY 12/25/21 04/06/22 multivitamin 1 tab PO DAILY 12/25/21 04/06/22 posaconazole 100 mg tablet,delayed 300 mg PO DAILY 12/25/21 04/06/22 release levofloxacin 500 mg tablet 500 mg PO .EVERY 24 HOURS 03/26/22 04/06/22 metoprolol succinate 25 mg 25 mg PO DAILY 03/26/22 04/06/22 tablet,extended release 24 hr sulfamethoxazole 800 1 tab PO UD 03/26/22 04/06/22 mg-trimethoprim 160 mg tablet (Bactrim DS) tramadol 50 mg tablet 50 mg PO Q4H PRN Pain 03/26/22 04/06/22 gabapentin 100 mg capsule 100 mg PO TID 04/06/22 04/06/22 Previous Rx's Medication Instructions Recorded oxycodone 5 mg tablet 5 mg PO Q4H PRN pain #20 tabs 03/26/22 Results & Data (ED) Vital Signs Vital Signs - 24 hr 04/06/22 19:20 04/06/22 22:05 04/06/22 22:21 Temperature 37.8 C H 38.4 C H 37.7 C H Temperature Source Temporal Artery Scan Oral Oral Pulse Rate 116 H 92 H 91 H Pulse Rate [Apical] Respiratory Rate 22 23 28 H Respiratory Effort / Characteristics Respiratory Depth Blood Pressure 119/62 100/68 108/69 Blood Pressure [Left Arm] Blood Pressure Mean 81 78 82 Blood Pressure Mean [Left Arm] Pulse Oximetry 99 96 97 Oxygen Delivery Method Room Air Sepsis Recent Fever Within 48 Hours Yes Sepsis New/Unexplained Change in Mental Status N/A Sepsis Action Taken by Nursing No Action Required 04/06/22 22:00 04/06/22 22:36 04/06/22 22:55 Temperature 38.1 C H Temperature Source Oral Pulse Rate 92 H 83 Pulse Rate [Apical] 86 Respiratory Rate 18 17 16 Respiratory Effort / Characteristics Non-Labored Respiratory Depth Normal Blood Pressure 115/73 116/83 Blood Pressure [Left Arm] 108/59 L Blood Pressure Mean 87 94 Blood Pressure Mean [Left Arm] 75 Pulse Oximetry 96 98 96 Oxygen Delivery Method Room Air Sepsis Recent Fever Within 48 Hours Sepsis New/Unexplained Change in Mental Status Sepsis Action Taken by Nursing Laboratory Data 04/06/22 20:10 04/06/22 20:10 Lab Results 04/06/22 04/06/22 04/06/22 Range/Units 20:10 20:10 20:10 WBC 0.60 L* (4.8-10.8) K/ul RBC 3.04 L (3.93-5.22) M/uL Hgb 8.8 L (12.0-16.0) g/dl Hct 25.7 L (34.1-44.9) % MCV 84.5 (80.0-100.0) fL MCH 28.9 (25.0-34.0) pg MCHC 34.2 (32.0-36.0) g/dL RDW Std Deviation 43.7 (36.4-46.3) fL RDW Coeff of Karey 14.2 (11.5-14.5) % Plt Count 12 L* (130-400) K/uL MPV 10.5 (9.4-12.3) fL Platelet Estimate Signific. Decreased L (Normal) PT 12.5 H (9.0-12.0) Seconds INR 1.2 H (0.9-1.1) APTT 26.6 (21.0-31.0) Seconds PTT Ratio 1.0 Sodium 133 L (136-145) mmol/L Potassium 4.5 (3.5-5.1) mmol/L Chloride 100 (98-107) mmol/L Carbon Dioxide 23 (21-32) mmol/L Anion Gap 10 (3-11) BUN 20 (6-23) mg/dl Creatinine 0.91 (0.6-1.2) mg/dl Est Cr Clr Drug Dosing 79.0 ml/min Est GFR ( Amer) 81.7 ml/min Est GFR (Non-Af Amer) 70.5 ml/min BUN/Creatinine Ratio 22.0 H (10-20) Glucose 113 H (70-99(Fasting)) mg/dl Calcium 9.3 (8.5-10.1) mg/dl Total Bilirubin 0.9 (0.2-1.0) mg/dl AST 17 (13-39) U/L ALT 20 (7-52) U/L Alkaline Phosphatase 197 H (34-104) U/L Total Protein 7.5 (6.0-8.3) gm/dl Albumin 4.0 (3.4-5.0) gm/dl Globulin 3.5 (2.5-4.0) gm/dl Albumin/Globulin Ratio 1.1 (0.9-2) Blood Type Antibody Screen 04/06/22 Range/Units 20:12 WBC (4.8-10.8) K/ul RBC (3.93-5.22) M/uL Hgb (12.0-16.0) g/dl Hct (34.1-44.9) % MCV (80.0-100.0) fL MCH (25.0-34.0) pg MCHC (32.0-36.0) g/dL RDW Std Deviation (36.4-46.3) fL RDW Coeff of Karey (11.5-14.5) % Plt Count (130-400) K/uL MPV (9.4-12.3) fL Platelet Estimate (Normal) PT (9.0-12.0) Seconds INR (0.9-1.1) APTT (21.0-31.0) Seconds PTT Ratio Sodium (136-145) mmol/L Potassium (3.5-5.1) mmol/L Chloride (98-107) mmol/L Carbon Dioxide (21-32) mmol/L Anion Gap (3-11) BUN (6-23) mg/dl Creatinine (0.6-1.2) mg/dl Est Cr Clr Drug Dosing ml/min Est GFR ( Amer) ml/min Est GFR (Non-Af Amer) ml/min BUN/Creatinine Ratio (10-20) Glucose (70-99(Fasting)) mg/dl Calcium (8.5-10.1) mg/dl Total Bilirubin (0.2-1.0) mg/dl AST (13-39) U/L ALT (7-52) U/L Alkaline Phosphatase (34-104) U/L Total Protein (6.0-8.3) gm/dl Albumin (3.4-5.0) gm/dl Globulin (2.5-4.0) gm/dl Albumin/Globulin Ratio (0.9-2) Blood Type O Negative Antibody Screen NEGATIVE Administered Medications Discontinued Medications Oxymetazoline HCl (Oxymetazoline 0.05% 30 Ml Btl) Confirm Administered Dose 150 sprays .ROUTE .STK-MED ONE Stop: 04/06/22 20:09 Last Admin: 04/06/22 22:55 Dose: 4 sprays Documented By: MASON Discharge Plan Visit Data Chief Complaint: Nose Bleed (Minor) Stated Complaint: PLATLIDS LOW, NOSE BLEED, REF BY DOC ED Provider: Mireille Ann Discharge Problem: Anterior epistaxis, Thrombocytopenia Forms Stand Alone Forms: [facility] Prescriptions Prescriptions: No Action acyclovir 400 mg tablet 400 mg PO BID calcium carbonate 500 mg calcium (1,250 mg) tablet,chewable 500 mg PO TID PRN (Reason: unknown) lansoprazole 30 mg capsule,delayed release(DR/EC) 30 mg PO DAILY Jardiance 10 mg tablet 10 mg PO DAILY letermovir 480 mg tablet 480 mg PO DAILY multivitamin Tablet 1 tab PO DAILY posaconazole 100 mg tablet,delayed release (DR/EC) 300 mg PO DAILY tramadol 50 mg Tablet 50 mg PO Q4H PRN (Reason: Pain) levofloxacin 500 mg Tablet 500 mg PO .EVERY 24 HOURS Rx Instructions: take for 60 days metoprolol succinate 25 mg Tablet Extended Release 24 Hr 25 mg PO DAILY Label Comments: holds for HR below 60 sulfamethoxazole-trimethoprim [Bactrim DS] 800-160 mg Tablet 1 tab PO UD Rx Instructions: take twice a day on MON/TUE/FRI ondansetron HCl 8 mg tablet 8 mg PO Q6H PRN (Reason: Nausea And Vomiting) prochlorperazine maleate 10 mg tablet 10 mg PO Q6H PRN (Reason: Nausea And Vomiting) calcium carbonate-vitamin D3 [Calcium 600 + D(3)] 600 mg-5 mcg (200 unit) Tablet 1 tab PO QAM exemestane 25 mg tablet 25 mg PO QAM levothyroxine 112 mcg tablet 112 mcg PO DAILYBB cholecalciferol (vitamin D3) [Vitamin D3] 125 mcg (5,000 unit) Tablet 125 mcg PO QAM oxycodone 5 mg tablet 5 mg PO Q4H PRN (Reason: pain) Qty: 20 0RF gabapentin 100 mg capsule 100 mg PO TID Referrals Referrals: Marisela Shoemaker PA-C [Primary Care Provider] -
[2022-04-07] MEDS: CEFEPIME 2,000 MG in SYRINGE 0 ML IV SCH ×3 (03:21→18:03)
--- NOTE | 2022-04-07 03:24 | History and Physical Report ---
DATE OF ADMISSION: 04/06/2022. CHIEF COMPLAINT: Epistaxis. HISTORY OF PRESENT ILLNESS: This is a 57-year-old female with past medical history significant for breast cancer, status post bilateral mastectomy in 2016, status post chemo, history of ovarian cancer, status post total abdominal hysterectomy and bilateral salpingo-oophorectomy in 2016 and also status post chemo, BRCA positive, hypothyroidism, history of MDS, status post stem cell transplant in October 2021 at [facility] and she had a chemo in the end of February and she is waiting for donor leukocyte infusions, history of COVID, comes here because of epistaxis started yesterday in the morning, 7:00 a.m. Looks like she just received platelet transfusion for her thrombocytopenia. In the ER, she was given Afrin and nasal clamp was placed and also platelets were 12 and given plateletpheresis. After that, bleeding stopped. Currently nasal clamp was taken off, resting comfortably, hemodynamically stable. Has some mild headache. Denies any blurred visions, no earache, no runny nose, no sore throat. No cough. Her appetite is okay. No difficulty swallowing. No chest pain, no shortness of breath, no nausea, no abdominal pain. Normal bowel and bladder movements. Denies any hematuria. Denies any blood in the stools or black stools. Ambulating okay in the ER. ALLERGIES: No known drug allergies. PAST MEDICAL HISTORY: As mentioned above. PAST SURGICAL HISTORY: Bilateral mastectomy, colonoscopy, dental surgery, ganglion cyst removal, ligation of oviducts, cataract surgery, total abdominal hysterectomy with bilateral salpingo-oophorectomy. MEDICATIONS: The patient is on acyclovir 400 mg p.o. b.i.d., Tums 500 mg p.o. t.i.d. p.r.n., calcium plus vitamin D one tablet p.o. a.m., vitamin D 125 mcg p.o. daily, Jardiance 10 mg p.o. daily, exemestane 25 mg p.o. daily, gabapentin 100 mg p.o. t.i.d., lansoprazole 30 mg p.o. daily, letermovir 480 mg p.o. daily, Levaquin 500 mg p.o. daily, levothyroxine 112 mcg p.o. daily, metoprolol succinate 25 mg p.o. daily, multivitamin one tablet p.o. daily, Zofran 8 mg p.o. q. 6 hours p.r.n., oxycodone 5 mg p.o. q. 4 hours p.r.n., posaconazole 300 mg p.o. daily, prochlorperazine 10 mg p.o. q. 6 hours p.r.n., Bactrim 1 tablet p.o. 3 times a week, tramadol 50 mg p.o. q. 4 hours p.r.n. FAMILY HISTORY: Significant for sister has diabetes; maternal grandfather had kidney failure; daughter had thyroid disorder; aunt has gastric cancer. SOCIAL HISTORY: , no smoking, no alcohol, no drug use. REVIEW OF SYSTEMS: As per HPI. Rest of the review of systems is negative. PHYSICAL EXAMINATION: GENERAL: The patient is of moderate build, not in acute distress. VITAL SIGNS: T-max is 38.1, pulse 79, respiratory rate 16, blood pressure 102/62, oxygen 96% on room air. HEENT: Pupils equal, round and reactive to light. Oral mucosa moist. NECK: No JVD, no neck masses. CARDIOVASCULAR: S1 and S2 heard. Regular rate and rhythm. No murmur, no gallop. RESPIRATORY SYSTEM: Normal AP diameter. No accessory muscle use. No wheezing, no crackles. ABDOMEN: Soft, bowel sounds present, nontender, no distention. CENTRAL NERVOUS SYSTEM: Cranial nerves II through XII grossly intact, nonfocal. EXTREMITIES: No edema, no erythema. LABORATORY DATA: WBC 0.6, hemoglobin 8.8, hematocrit 25.7, platelets 12. PT 12.5, INR 1.2, APTT 26.6. Sodium 133, potassium 4.5, chloride 100, bicarbonate 23, BUN 20, creatinine 0.9, serum glucose 113, calcium 9.3, total bilirubin 0.9, AST 17, ALT 20, alkaline phosphatase 197. EKG: Sinus tachycardia at a rate of 104. Nonspecific T-wave abnormalities. ASSESSMENT AND PLAN: This is a 57-year-old female with a history of breast cancer, ovarian cancer and currently myelodysplastic syndrome, status post stem cell transplant, waiting for donor leukocyte infusions presents with epistaxis. 1. Epistaxis. Received Afrin and nasal clamp in the ER and received platelet transfusion, currently resolved. While in the hospital, will consult ENT. She was placed on clear liquid diet for now until seen by ENT. 2. Febrile neutropenia. The patient had chemo in the end of February. She says she is done with the chemo for MDS and she says she will get again chemo prior to the donor leukocyte infusions as per the patient. We will empirically place her on cefepime. Follow MRSA screening. Follow the cultures. Neutropenic precautions .Gentle fluids. Close monitor. 3. Myelodysplastic syndrome, status post stem cell transplant in October 2021 at [facility], had a chemo in the end of the February, , waiting for donor leukocyte transfusions. Continue her prophylactic antibiotics. If any concern, consult Hem/Onc. 4. History of breast cancer, status post bilateral mastectomy in 2016, status post chemo. 5. History of ovarian cancer, status post total abdominal hysterectomy with bilateral salpingo-oophorectomy in 2016, status post chemo. Follow with Hem/Onc. 6. History of diabetes: Hold Jardiance. Place her on insulin sliding scale. Follow the blood sugars. 7. Hypothyroidism: On Synthroid. 8. Pancytopenia. received platelet transfusion in er. Will follow labs. 9. Deep venous thrombosis prophylaxis. SCDs. The patient has thrombocytopenia. DISPOSITION: Closely monitor in the med tele. PT/OT prior to discharge. Social service to help with discharge planning. Job ID: [id number] MTDD
[2022-04-07] MEDS ORDERED: DEXTROSE 50% 50 ML SYRINGE IV PRN (03:47)
[2022-04-07] MEDS ORDERED: oxyCODONE HCL IR 5 MG TAB (IMMEDIATE RELEASE) PO PRN (03:47)
[2022-04-07] MEDS ORDERED: GLUCOSE 10 TAB/TUBE PO PRN (03:47)
[2022-04-07] MEDS ORDERED: NITROGLYCERIN SL 0.4 MG/TAB TAB SL PRN (03:47)
[2022-04-07] MEDS ORDERED: GLUCOSE 40% GEL 15 GM TUBE PO PRN (03:47)
[2022-04-07] MEDS ORDERED: CALCIUM CARBONATE 500 MG CHEWABLE TAB PO PRN (03:47)
[2022-04-07] MEDS ORDERED: POLYETHYLENE (MIRALAX) 17 GM PACK PO PRN (03:47)
[2022-04-07] MEDS ORDERED: traMADol HCL 50 MG TABLET PO PRN (03:47)
[2022-04-07] MEDS ORDERED: ONDANSETRON 4 MG OD TAB PO PRN (03:47)
[2022-04-07] MEDS ORDERED: GLUCAGON FOR INJ 1 MG VIAL SQ PRN (03:47)
[2022-04-07] MEDS ORDERED: PROCHLORPERAZINE MALEATE 10 MG TAB PO PRN (03:47)
[2022-04-07] MEDS ORDERED: CARBOHYDRATES FOR HYPOGLYCEMIA PO PRN (03:47)
[2022-04-07 03:59] LABS: Appearance Urine Clear (Clear); Bacteria Urine Automated Negative (Negative); Bilirubin Urine Negative (Negative); Blood Urine Trace (Negative); Cast Urine Automated 0 /lpf (0-5); Color Urine Yellow; Glucose Urine UA 3+ (Negative); Ketones Urine Negative (Negative); Leukocyte Esterase Urine Negative (Negative); Nitrite Urine Negative (Negative); Protein Urine Negative (Negative); Specific Gravity Urine 1.015 (1.000-1.030); Urobilinogen Urine Negative (Negative); WBC Urine Automated 0 /hpf (0-5)
[2022-04-07 04:14] LABS: BUN Creatinine Ratio 24.3 (10-20); Calcium 8.6 mg/dl (8.5-10.1); Creatinine Clr Calc Pharmacy 97.2 ml/min; Est GFR (Non-African American) 90.6 ml/min; Potassium 4.2 mmol/L (3.5-5.1)
[2022-04-07 06:00] LABS: Hematocrit (blood only) 22.8 % (34.1-44.9); Hemoglobin 7.9 g/dl (12.0-16.0); Lymphocytes # (auto) 0.65 K/uL (1.2-3.4); Lymphocytes % (auto) 86.7 %; Mean Corpuscular Hemoglobin 29.3 pg (25.0-34.0); Mean Corpuscular Hgb Conc 34.6 g/dL (32.0-36.0); Mean Corpuscular Volume 84.4 fL (80.0-100.0); Mean Platelet Volume 10.9 fL (9.4-12.3); Monocytes # (auto) 0.04 K/uL (0.24-0.82); Monocytes % (auto) 5.3 %; Neutrophils # (auto) 0.06 K/uL (1.4-6.5); Platelet Count 25 K/uL (130-400); Platelet Estimate Signific. Decreased (Normal); RDW Coefficient of Variation 14.1 % (11.5-14.5); RDW Standard Deviation 42.8 fL (36.4-46.3); White Blood Count 0.75 K/ul (4.8-10.8)
[2022-04-07] MEDS: LEVOTHYROXINE SODIUM 112 MCG TABLET PO SCH (06:27)
[2022-04-07] MEDS ORDERED: levoFLOXacin 500 MG TAB PO SCH (11:00)
--- NOTE | 2022-04-07 11:24 | Electrocardiogram Report ---
Test Reason : Blood Pressure : / mmHG Vent. Rate : 104 BPM Atrial Rate : 104 BPM P-R Int : 162 ms QRS Dur : 080 ms QT Int : 338 ms P-R-T Axes : 028 -06 056 degrees QTc Int : 444 ms Sinus tachycardia Otherwise normal ECG When compared with ECG of 26-FEB-2022 08:37, Questionable change in QRS axis Nonspecific T wave abnormality, improved in Anterior leads Confirmed by Aramis Fountain ([id number]) on 04/07/2022 11:24:01 AM Referred By: REFERRED SELF Confirmed By:Irvin Fountain
[2022-04-07] MEDS: INSULIN ASPART PER UNIT SC SCH ×2 (11:28→13:46)
[2022-04-07] MEDS: ACYCLOVIR 400 MG TAB PO SCH ×2 (11:30→22:04)
[2022-04-07] MEDS: PANTOprazole 40 MG TAB PO SCH (11:30)
[2022-04-07] MEDS: MULTIVITAMIN TAB PO SCH (11:31)
[2022-04-07] MEDS: CALCIUM 600MG + VIT D 400 IU TAB PO SCH (11:31)
[2022-04-07] MEDS: SULFAMETHOXAZOLE/TRIMETHOPRIM DS 800/160MG TAB PO SCH ×2 (11:32→22:04)
[2022-04-07] MEDS: METOPROLOL SUCC 25MG EXT REL TAB PO SCH (11:33)
[2022-04-07] MEDS: GABAPENTIN 100 MG CAP PO SCH ×3 (11:33→22:04)
[2022-04-07] MEDS: CHOLECALCIFEROL 5,000 UNITS 125 MCG TAB PO SCH (11:34)
--- NOTE | 2022-04-07 13:51 | Hospitalist Progress Note ---
Date of Service April 07, 2022 Assessment & Plan (1) Neutropenic fever: Plan: Underlying neutropenia is chronic related to chemotherapy treatment and MDS. She did have an elevated temperature overnight but denies any feeling of being sick or chilled or feverish. This is a similar situation to her last admission. Currently there is no source of infection. Continue cefepime pending culture results tomorrow. If there is no growth of bacteria in her blood and she is feeling well we will consider de-escalating to an oral antibiotic for short period of time and sending her home. (2) Anterior epistaxis: Plan: This is resolved and platelet has risen to 20 5K after transfusion yesterday. Patient reports she gets frequent epistaxis events (3) MDS (myelodysplastic syndrome): Plan: h/o high grade MDS recently admitted to [facility] for back pain, underwent BM biopsy. She is BRCA2+ female with a h/o breast and ovarian cancer s/p chemotherapy now with therapy related MDS. She is s/p 3 cycels of azacitidine and allogeniec SCT. She received azacitadine and underwent DLI on 03/08. Developed ongoing back pain for 3-4 weeks after conpleting Venetoclax (took 7 dys). During her admission CT and MRI of lumbar spine were unremarkable. MRI t-spine showed diffuse hypointencse marrow signal, likely due to underlying MDS. There was a non obstructing kindey calculus on the right. She was dischsarged on a lidocaine patch and gabapentin with titration if needed. She continues on acyclovir, bactrim MWF, posaconazole and levaquin for infectious prophylaxis and is on letermovir for CMV prophylaxis s/p SCT. Repeat BM bx was on 04/01 with results pending at time of discharge. (4) Back pain: Plan: Patient states that gabapentin has improved/resolved her back pain that began several weeks ago thought to be a side effect of one of her chemotherapeutic medications. Continue gabapentin at this time. DVT prophylaxis-SCDs/ambulation given thrombocytopenia as a contraindication to chemoprophylaxis. Full code Disposition-to home in a.m. pending blood culture results and if she stays afebrile for 24 hours. 60 minutes of time was spent gathering information from outpatient records, reviewing results of diagnostic studies and coordinating care plan with staff. Karissa Deras DO [facility] Hospitalist Admission and Anticipated Discharge Date Admission Date: April 07, 2022 Subjective 57 yo F with pancytopenia secondary to MDS on chemotherapy presents with epistaxis. She is improved with no further bleeding and underwent a platelet transfusion with platelet count now 25. She overall feels well. She is asking for advancement of her clear diet to a regular diet. She otherwise has no reports of fever even though her temp was elevated overnight. She states that she knows when she has a fever or chills and she does not feel sick at all. She denies any respiratory issues, urinary issues, diarrhea or other sources of infection at this time. Review of Systems Review of Systems: All systems were reviewed and negative except as indicated above. Physical Exam Physical Exam: CONSTITUTIONAL: WNWD, vitals as above, generally well-appea ring, NAD EYES: normal conjunctivae, no scleral icterus ENT: external ear and nose normal, no stigmata of bleeding from nares. NECK: trachea midline RESPIRATORY: clear to auscultation bilaterally, no crackles, rales or wheezes, normal respiratory effort CARDIOVASCULAR: regular rate and rhythm, S1 and 2 heard without murmurs, gallops or rubs, no JVD, no peripheral edema, CHEST: inspection of chest was normal GASTROINTESTINAL: soft, nontender, no guarding MUSCULOSKELETAL: strength 5/5 throughout, head is normocephalic and atraumatic, neck supple, normal palpation of chest wall without tenderness, ambulates in the room independently. SKIN: warm and dry, no rashes or ecchymosis. NEUROLOGIC: CN 2-12 grossly intact, no sensory deficit, normal cognition, normal speech, no tremor PSYCHIATRIC: alert cooperative and oriented to person, place and time. Euthymic mood, makes good eye contact, language grossly intact, recent and remote memory grossly intact. Results & Data Results & Data ([facility]) Vital Signs (Past 12 Hours) Vital Signs Pulse Resp BP Pulse Ox Pulse Ox O2 Del Method O2 Del Method 04/07/22 06:40 66 18 115/74 100 Room Air 04/07/22 05:30 64 18 109/69 97 Room Air 04/07/22 04:00 65 16 119/75 96 Room Air 04/07/22 04:00 96 Room Air 04/07/22 02:00 72 14 108/65 97 Room Air Laboratory Results Short CBC 04/06/22 04/07/22 Range/Units 20:10 03:21 WBC 0.60 L* 0.75 L* (4.8-10.8) K/ul Hgb 8.8 L 7.9 L (12.0-16.0) g/dl Hct 25.7 L 22.8 L (34.1-44.9) % Plt Count 12 L* 25 L* D (130-400) K/uL BMP 04/06/22 04/07/22 20:10 03:21 Sodium 133 L 133 L Potassium 4.5 4.2 Chloride 100 100 Carbon Dioxide 23 26 BUN 20 18 Creatinine 0.91 0.74 Glucose 113 H 111 H Calcium 9.3 8.6 Liver Function 04/06/22 Range/Units 20:10 Total Bilirubin 0.9 (0.2-1.0) mg/dl AST 17 (13-39) U/L ALT 20 (7-52) U/L Alkaline Phosphatase 197 H (34-104) U/L Albumin 4.0 (3.4-5.0) gm/dl Urine 04/07/22 Range/Units 03:25 Urine Color Yellow Urine Appearance Clear (Clear) Urine pH 7.0 (4.5-7.5) Ur Specific [place] 1.015 (1.000-1.030) Urine Protein Negative (Negative) Urine Glucose (UA) 3+ H (Negative) Medications Administered Current Inpatient Medications Acetaminophen (Acetaminophen 325 Mg Tab) 650 mg PO Q4H PRN PRN Reason: Pain or Fever Stop: 05/07/22 03:46 Acyclovir (Acyclovir 400 Mg Tab) 400 mg PO BID [facility] Stop: 05/07/22 08:59 Last Admin: 04/07/22 11:30 Dose: 400 mg Calcium Carbonate (Calcium Carbonate 500 Mg Chewable Tab) 500 mg PO TID PRN PRN Reason: Heartburn Calcium/Vitamin D (Calcium 600mg + Vit D 400 Iu Tab) 1 tab PO QAM SHAUNA Stop: 05/07/22 08:59 Last Admin: 04/07/22 11:31 Dose: 1 tab Dextrose (Dextrose 50% 50 Ml Syringe) 25 - 50 ml IV UD PRN; Protocol PRN Reason: Hypoglycemia Protocol Stop: 05/07/22 03:46 Gabapentin (Gabapentin 100 Mg Cap) 100 mg PO TID SHAUNA Stop: 05/07/22 08:59 Last Admin: 04/07/22 11:33 Dose: 100 mg Glucagon (Glucagon For Inj 1 Mg Vial) 1 mg SQ UD PRN; Protocol PRN Reason: Hypoglycemia Protocol Stop: 05/07/22 03:46 Glucose (Glucose 40% Gel 15 Gm Tube) 15 - 30 gm PO UD PRN; Protocol PRN Reason: Hypoglycemia Protocol Stop: 05/07/22 03:46 Glucose (Glucose 10 Tab/Tube) 4 - 8 tab PO UD PRN; Protocol PRN Reason: Hypoglycemia Treatment Stop: 05/07/22 03:46 Cefepime HCl 2,000 mg/ Syringe 20 mls @ 5 mls/min IV Q8H [facility]; Protocol Stop: 04/09/22 01:59 Last Admin: 04/07/22 03:21 Dose: 5 mls/min Insulin Aspart (Insulin Aspart Per Unit) 0 units SC [facility] Stop: 05/07/22 07:29 Last Admin: 04/07/22 11:28 Dose: Not Given Levofloxacin (Levofloxacin 500 Mg Tab) 500 mg PO DAILY@1100 [facility] Stop: 05/07/22 10:59 Last Admin: 04/07/22 11:30 Dose: 500 mg Levothyroxine Sodium (Levothyroxine Sodium 112 Mcg Tablet) [facility]: 05/07/22 06:29 Last Admin: 04/07/22 06:27 Dose: 112 mcg Metoprolol Succinate (Metoprolol Succ 25mg Ext Rel Tab) 25 mg PO DAILY [facility] Stop: 05/07/22 08:59 Last Admin: 04/07/22 11:33 Dose: 25 mg Miscellaneous (Order Awaiting Action: Exemestane 25 Mg Tablet) 1 each N/A QS [facility] Stop: 05/07/22 07:59 Last Admin: 04/07/22 11:28 Dose: Not Given Miscellaneous (Order Awaiting Action: Letermovir 480 Mg Tablet) 1 each N/A QS [facility] Stop: 05/07/22 07:59 Last Admin: 04/07/22 11:28 Dose: Not Given Miscellaneous (Order Awaiting Action: Posaconazole 100 Mg Tablet,Delayed Release (Dr/Ec)) 1 each N/A QS [facility] Stop: 05/07/22 07:59 Last Admin: 04/07/22 11:28 Dose: Not Given Miscellaneous (Carbohydrates For Hypoglycemia ) 15 - 30 gm PO UD PRN PRN Reason: Hypoglycemia Protocol Stop: 05/07/22 03:46 Multivitamins (Multivitamin Tab) 1 tab PO DAILY [facility] Stop: 05/07/22 08:59 Last Admin: 04/07/22 11:31 Dose: 1 tab Nitroglycerin (Nitroglycerin Sl 0.4 Mg/Tab Tab) 0.4 mg SL Q5M PRN PRN Reason: Chest Pain Stop: 05/07/22 03:46 Ondansetron HCl (Ondansetron 4 Mg Od Tab) 8 mg PO Q6H PRN PRN Reason: Nausea And Vomiting Oxycodone HCl (Oxycodone Hcl Ir 5 Mg Tab (Immediate Release)) 5 mg PO Q4H PRN PRN Reason: pain Stop: 04/21/22 03:46 Pantoprazole Sodium (Pantoprazole 40 Mg Tab) 40 mg PO DAILY [facility] Stop: 05/07/22 08:59 Last Admin: 04/07/22 11:30 Dose: 40 mg Polyethylene Glycol (Polyethylene (Miralax) 17 Gm Pack) 17 gm PO DAILY PRN PRN Reason: Constipation Stop: 05/07/22 03:46 Prochlorperazine (Prochlorperazine Maleate 10 Mg Tab) 10 mg PO Q6H PRN PRN Reason: Nausea And Vomiting Stop: 05/07/22 03:46 Tramadol HCl (Tramadol Hcl 50 Mg Tablet) 50 mg PO Q4H PRN PRN Reason: Pain Stop: 05/07/22 03:46 Trimethoprim/Sulfamethoxazole (Sulfamethoxazole/Trimethoprim Ds 800/160mg Tab) 1 tab PO MoWeFr@0900,2100 [facility] Stop: 05/07/22 08:59 Last Admin: 04/07/22 11:32 Dose: 1 tab Vitamin D (Cholecalciferol 5,000 Units 125 Mcg Tab) 5,000 units PO QAM [facility] Stop: 05/07/22 08:59 Last Admin: 04/07/22 11:34 Dose: 5,000 units
[2022-04-07] MEDS: ACETAMINOPHEN 325 MG TAB PO PRN (20:15)
[2022-04-08] MEDS: CEFEPIME 2,000 MG in SYRINGE 0 ML IV SCH ×2 (01:43→10:56)
[2022-04-08] MEDS: LEVOTHYROXINE SODIUM 112 MCG TABLET PO SCH (05:56)
[2022-04-08 08:07] LABS: Calcium 8.9 mg/dl (8.5-10.1); Creatinine Clr Calc Pharmacy 113.1 ml/min; Est GFR (African American) 116.2 ml/min; Est GFR (Non-African American) 100.3 ml/min; Potassium 4.4 mmol/L (3.5-5.1)
[2022-04-08] MEDS: ACETAMINOPHEN 325 MG TAB PO PRN (08:34)
[2022-04-08] MEDS: CALCIUM 600MG + VIT D 400 IU TAB PO SCH (08:35)
[2022-04-08] MEDS: CHOLECALCIFEROL 5,000 UNITS 125 MCG TAB PO SCH (08:35)
[2022-04-08] MEDS: PANTOprazole 40 MG TAB PO SCH (08:35)
[2022-04-08] MEDS: METOPROLOL SUCC 25MG EXT REL TAB PO SCH (08:35)
[2022-04-08] MEDS: MULTIVITAMIN TAB PO SCH (08:35)
[2022-04-08] MEDS: GABAPENTIN 100 MG CAP PO SCH ×2 (08:35→13:43)
[2022-04-08] MEDS: ACYCLOVIR 400 MG TAB PO SCH (08:35)
[2022-04-08] MEDS ORDERED: EMPAGLIFLOZIN 10 MG TAB PO SCH (09:00)
[2022-04-08 11:23] LABS: Hematocrit (blood only) 23.9 % (37.0-47.0); Hemoglobin 8.2 g/dl (12.0-16.0); Mean Corpuscular Hemoglobin 28.7 pg (25.0-34.0); Mean Corpuscular Hgb Conc 34.3 g/dL (32.0-36.0); Mean Corpuscular Volume 83.6 fL (80.0-100.0); RDW Coefficient of Variation 13.8 % (11.5-14.5); RDW Standard Deviation 41.6 fL (36.4-46.3); Red Blood Count 2.86 M/uL (4.20-5.40)
[2022-04-08 13:02] LABS: ALC (manual) 0.38 K/uL (1.2-3.4); ANC (manual) 0.11 K/uL (1.4-6.5); Blast # (manual) 0.01 K/uL (0-0); Blast Cells % (manual) 1 %; Eosinophils # (manual) 0.01 K/uL (0-0.50); Eosinophils % (manual) 1 %; Lymphocytes # (manual) 0.38 K/uL (1.2-3.4); Lymphocytes % (manual) 74 %; Mean Platelet Volume 8.8 fL (9.4-12.4); Monocytes # (manual) 0.02 K/uL (0.11-0.59); Monocytes % (manual) 3 %; Neutrophils # (manual) 0.11 K/uL (1.40-6.50); Neutrophils % (manual) 21 %; Platelet Count 9 K/uL (130-400); Platelet Estimate Signific. Decreased (Normal); RBC Morphology Unremarkable; White Blood Count 0.52 K/ul (4.8-10.8)
--- NOTE | 2022-04-08 13:12 | Discharge Summary ---
Discharge Summary Date of Service April 08, 2022 Notes For Next Care Provider Medication Changes From Visit Levaquin 500mg daily changed to 750mg daily x 1 week then resume 500mg daily. Admission HPI Per Admitting Provider HISTORY OF PRESENT ILLNESS: This is a 57-year-old female with past medical history significant for breast cancer, status post bilateral mastectomy in 2016, status post chemo, history of ovarian cancer, status post total abdominal hysterectomy and bilateral salpingo-oophorectomy in 2016 and also status post chemo, BRCA positive, hypothyroidism, history of MDS, status post stem cell transplant in October [address] [facility] and she had a chemo in the end of February and she is waiting for donor leukocyte infusions, history of COVID, comes here because of epistaxis started yesterday in the morning, 7:00 a.m. Looks like she just received platelet transfusion for her thrombocytopenia. In the ER, she was given Afrin and nasal clamp was placed and also platelets were 12 and given plateletpheresis. After that, bleeding stopped. Currently nasal clamp was taken off, resting comfortably, hemodynamically stable. Has some mild headache. Denies any blurred visions, no earache, no runny nose, no sore throat. No cough. Her appetite is okay. No difficulty swallowing. No chest pain, no shortness of breath, no nausea, no abdominal pain. Normal bowel and bladder movements. Denies any hematuria. Denies any blood in the stools or black stools. Ambulating okay in the ER. Admission Exam Per Admitting Provider PHYSICAL EXAMINATION: GENERAL: The patient is of moderate build, not in acute distress. VITAL SIGNS: T-max is 38.1, pulse 79, respiratory rate 16, blood pressure 102/62, oxygen 96% on room air. HEENT: Pupils equal, round and reactive to light. Oral mucosa moist. NECK: No JVD, no neck masses. CARDIOVASCULAR: S1 and S2 heard. Regular rate and rhythm. No murmur, no gallop. RESPIRATORY SYSTEM: Normal AP diameter. No accessory muscle use. No wheezing, no crackles. ABDOMEN: Soft, bowel sounds present, nontender, no distention. CENTRAL NERVOUS SYSTEM: Cranial nerves II through XII grossly intact, nonfocal. EXTREMITIES: No edema, no erythema. Principal Dx & Hospital Course #1 = Principal Diagnosis (1) Neutropenic fever: Underlying neutropenia is chronic related to chemotherapy treatment and MDS. She did have an elevated temperature overnight but denies any feeling of being sick or chilled or feverish. This is a similar situation to her last admission. Currently there is no source of infection. Cefepime was continued until day of discharge where there was no preliminary growth in her blood cultures and she was still feeling well. She takes Levaquin consistently for prophylaxis at a dose of 500 mg p.o. daily. We will increase that dose to 750 p.o. daily for the next 5 days. This plan was reviewed with her oncologist who agreed. (2) Anterior epistaxis: Transfusion initiated on admission. Epistaxis resolved and did not return. Post transfusion PLT count was 25K and this fell to 9K on day of discharge. She was transfused one more pack of platelets and discharged home. Repeat blood work planned as outpatient. She is followed closely by Oncology. (3) MDS (myelodysplastic syndrome): h/o high grade MDS recently admitted to [facility] for back pain, underwent BM biopsy. She is BRCA2+ female with a h/o breast and ovarian cancer s/p chemotherapy now with therapy related MDS. She is s/p 3 cycels of azacitidine and allogeneic SCT. She received azacitidine and underwent DLI on 03/08. Developed ongoing back pain for 3-4 weeks after completing Venetoclax (took 7 dys). During her admission CT and MRI of lumbar spine were unremarkable. MRI t-spine showed diffuse hypointense marrow signal, likely due to underlying MDS. There was a non obstructing kidney calculus on the right. She was discharged on a lidocaine patch and gabapentin with titration if needed. She continues on acyclovir, Bactrim MWF, posaconazole and Levaquin for infectious prophylaxis and is on letermovir for CMV prophylaxis s/p SCT. Repeat BM bx was on 04/01 with results pending at time of discharge. Cont plan per oncology (4) Back pain: Patient states that gabapentin has improved/resolved her back pain that began several weeks ago thought to be a side effect of one of her chemotherapeutic medications. Continue gabapentin per home regimen without changes. (5) Pancytopenia due to antineoplastic chemotherapy: Plan By CMS guidelines, a determination that the admission or continued stay is not medically necessary has been made by a member of the Utilization Review committee and a physician for this hospital stay. Therefore, a Code 44 will be completed and the inpatient admission will be changed to outpatient. Karissa Deras, DO Discharge Exam CONSTITUTIONAL: WNWD, vitals as above, generally well-appearing, NAD EYES: normal conjunctivae, no scleral icterus ENT: external ear and nose normal NECK: trachea midline RESPIRATORY: clear to auscultation bilaterally, no crackles, rales or wheezes, normal respiratory effort CARDIOVASCULAR: regular rate and rhythm, S1 and 2 heard without murmurs, gallops or rubs, no JVD, no peripheral edema CHEST: inspection of chest was normal GASTROINTESTINAL: soft, nontender, ND, no guarding MUSCULOSKELETAL: strength 5/5 throughout, head is normocephalic and atraumatic,ambulating at baseline. SKIN: warm and dry NEUROLOGIC: CN 2-12 grossly intact, no sensory deficit, normal cognition, normal speech, no tremor PSYCHIATRIC: alert cooperative and oriented to person, place and time. Mentating at baseline. Updated Medication List Medication Instructions Recorded Confirmed Type calcium carbonate 600 mg-vitamin 1 tab PO QAM 06/30/21 04/16/22 History D3 5 mcg (200 unit) tablet (Calcium 600 + D(3)) cholecalciferol (vitamin D3) 125 125 mcg PO QAM 06/30/21 04/16/22 History mcg (5,000 unit) tablet (Vitamin D3) exemestane 25 mg tablet 25 mg PO QAM 06/30/21 04/16/22 History levothyroxine 112 mcg tablet 112 mcg PO DAILYBB 06/30/21 04/16/22 History ondansetron HCl 8 mg tablet 8 mg PO Q6H PRN Nausea And Vomiting 06/30/21 04/16/22 History prochlorperazine maleate 10 mg 10 mg PO Q6H PRN Nausea And 06/30/21 04/16/22 History tablet Vomiting acyclovir 400 mg tablet 400 mg PO BID 12/25/21 04/16/22 History calcium carbonate 500 mg calcium 500 mg PO TID PRN unknown 12/25/21 04/16/22 History (1,250 mg) chewable tablet empagliflozin 10 mg tablet 10 mg PO DAILY 12/25/21 04/16/22 History (Jardiance) lansoprazole 30 mg capsule,delayed 30 mg PO DAILY 12/25/21 04/16/22 History release letermovir 480 mg tablet 480 mg PO DAILY 12/25/21 04/16/22 History multivitamin 1 tab PO DAILY 12/25/21 04/16/22 History posaconazole 100 mg tablet,delayed 300 mg PO DAILY 12/25/21 04/16/22 History release metoprolol succinate 25 mg 25 mg PO DAILY 03/26/22 04/16/22 History tablet,extended release 24 hr oxycodone 5 mg tablet 5 mg PO Q4H PRN pain #20 tabs 03/26/22 04/16/22 Rx sulfamethoxazole 800 1 tab PO UD 03/26/22 04/16/22 History mg-trimethoprim 160 mg tablet (Bactrim DS) tramadol 50 mg tablet 50 mg PO Q4H PRN Pain 03/26/22 04/16/22 History gabapentin 100 mg capsule 100 mg PO TID 04/06/22 04/16/22 History tranexamic acid 650 mg tablet 650 mg PO TID PRN Bleeding 04/13/22 04/16/22 History Hospital Stay Data Consultations 04/06/22 22:57 ED Decision to Admit Stat 04/07/22 08:00 Consult Otolaryngology (Head and Neck) Routine Discharge Instructions Given to Patient (Per Discharging Provider) You received two units of platelets during this admission for critically low levels. Please follow-up with your primary care physician or oncologist within the next 7 days after this hospital stay to touch base and ensure your blood counts are stable and you haven't experienced any further bleeding. Please take all medications as instructed on discharge list below. Your blood cultures were performed on aerobic bacteria only, however, anaerobic bacteria cultures were unable to be performed. If you start to feel ill or develop a sustained fever, please seek immediate medical attention. You are being put on empiric Levaquin at a slightly higher dose than you prophylaxis dose. Please continue this until complete and then switch back over to the Levaquin 500mg once daily dose for prophylaxis. It was a pleasure taking care of you! Please call if you have any questions or problems. You can reach a [facility] hospitalist on duty at [facility] 24 hours a day by calling [phone]. Take care of yourself. Karissa Deras, [facility] Hospitalist Total Time Total Time Spent Total Time Spent (In Minutes): 60
--- NOTE | 2022-04-08 14:00 | Communication Note ---
Date of Service: April 08, 2022 By CMS guidelines, a determination that the admission or continued stay is not medically necessary has been made by a member of the UR committee and a ph ysician for this hospital stay, therefore a Code 44 will be completed and the Inpatient admission will be changed to outpatient. Ryann Celeste M.D.
[2022-04-08 14:47] VITALS: BP 99/62; PULSE 67; TEMP 98.1; O2SAT 99
--- NOTE | 2022-04-20 12:38 | ENT Consultation ---
Date of Consultation April 20, 2022 History of Present Illness Attending Physician: Karissa Deras, History of Present Illness I did not see this patient during her brief hospitalization. According to the notes she has been scheduled for ENT follow-up in our office. Allergies Allergy/AdvReac Type Severity Reaction Status Date / Time No Known Allergies Allergy Verified 04/20/22 08:38 Home Medications Medication Instructions Recorded Confirmed Type calcium carbonate 600 mg-vitamin 1 tab PO QAM 06/30/21 04/20/22 History D3 5 mcg (200 unit) tablet (Calcium 600 + D(3)) cholecalciferol (vitamin D3) 125 125 mcg PO QAM 06/30/21 04/20/22 History mcg (5,000 unit) tablet (Vitamin D3) exemestane 25 mg tablet 25 mg PO QAM 06/30/21 04/20/22 History levothyroxine 112 mcg tablet 112 mcg PO DAILYBB 06/30/21 04/20/22 History ondansetron HCl 8 mg tablet 8 mg PO Q6H PRN Nausea And Vomiting 06/30/21 04/20/22 History prochlorperazine maleate 10 mg 10 mg PO Q6H PRN Nausea And 06/30/21 04/20/22 History tablet Vomiting acyclovir 400 mg tablet 400 mg PO BID 12/25/21 04/20/22 History calcium carbonate 500 mg calcium 500 mg PO TID PRN unknown 12/25/21 04/20/22 History (1,250 mg) chewable tablet empagliflozin 10 mg tablet 10 mg PO DAILY 12/25/21 04/20/22 History (Jardiance) lansoprazole 30 mg capsule,delayed 30 mg PO DAILY 12/25/21 04/20/22 History release letermovir 480 mg tablet 480 mg PO DAILY 12/25/21 04/20/22 History multivitamin 1 tab PO DAILY 12/25/21 04/20/22 History posaconazole 100 mg tablet,delayed 300 mg PO DAILY 12/25/21 04/20/22 History release metoprolol succinate 25 mg 25 mg PO DAILY 03/26/22 04/20/22 History tablet,extended release 24 hr oxycodone 5 mg tablet 5 mg PO Q4H PRN pain #20 tabs 03/26/22 04/20/22 Rx sulfamethoxazole 800 1 tab PO UD 03/26/22 04/20/22 History mg-trimethoprim 160 mg tablet (Bactrim DS) tramadol 50 mg tablet 50 mg PO Q4H PRN Pain 03/26/22 04/20/22 History gabapentin 100 mg capsule 100 mg PO TID 04/06/22 04/20/22 History tranexamic acid 650 mg tablet 650 mg PO TID PRN Bleeding 04/13/22 04/20/22 History Patient History Medical History BRCA gene mutation positive Cancer of central portion of right female breast (06/08/16) Elevated troponin Hx of breast cancer hx 2016 s/p b/l masectomy, XRT and chemo Hx of ovarian cancer IRENA BSO 01/2017 Hypothyroidism Pneumonia Sepsis Surgical History History of bilateral mastectomy History of cataract extraction History of total abdominal hysterectomy and bilateral salpingo-oophorectomy Hx of colonoscopy with polypectomy last c scope 05/2021 WNL Family History Other Breast cancer Diabetes Social History Smoking Status: Never smoker Second Hand Exposure: No; Hx Alcohol Use: No Hx Substance Use: No Preferred Language: Gabonese Communication Ability: Effective Business Computers Teacher Required: No Beliefs That Will Affect Care: None marital status: Current Living Situation: Spouse Feels Safe at Home: Yes Safety Concerns: Feels Safe At This Time Assistive Devices: None
== END 2022-04-08 15:00 | disposition home health service (06) | DRG 150 ==
LOC: ED 18:34 → EDINP 04-07 01:18 → INTOOBSV 04-07 01:18 → 2N 04-07 03:48

== ENCOUNTER 2022-06-28 17:32 | Inpatient (IN) ==
[2022-06-28] MEDS ORDERED: VANCOMYCIN HCL 2,000 MG in SODIUM CHLORIDE 0.9% 500 ML IV ONE (18:29)
[2022-06-28] MEDS ORDERED: SODIUM CHLORIDE 0.9% 1000ML 1,000 ML IV ONE ×2 (18:29→20:02)
[2022-06-28] MEDS ORDERED: CEFEPIME 2,000 MG/20 ML VIAL IV STA (18:29)
[2022-06-28] MEDS ORDERED: VANCOMYCIN CONSULT ACTIVE PRN (18:29)
--- NOTE | 2022-06-28 19:15 | Emergency Department Note ---
Impression & Plan Bacteremia, Symptomatic anemia, MDS (myelodysplastic syndrome), Neutropenia, Thrombocytopenia ED Provider Note NAME: JET MORAES AGE: 57 SEX: F : 1965 ARRIVES VIA: Walk-In INFORMANT: Patient, ED PROVIDER(S): Marcial Trent DO CHIEF COMPLAINT: Bacteremia HPI: The patient is a 57-year-old female [facility] The patient has a history of breast cancer as well as myelodysplastic syndrome. She receives blood transfusion as well as platelet transfusion. She was seen in our facility recently for blood transfusion. At that time she was found to be neutropenic. She had blood cultures drawn. She was told to come back to the emergency department because of bacteremia. She grew out gram-positive bacteria in her blood. At this time the patient states she does have some weakness but overall she states she feels pretty well. She denies having any cough dysuria or frequency. She does have a port in her right chest which was used recently. The patient was hypotensive. I was called to evaluate the patient emergently. ROS: See above HPI for pertinent positives & negatives. A total of 10 systems reviewed and were otherwise negative. PAST MEDICAL HISTORY: See Below PAST SURGICAL HISTORY: See Below FAMILY HISTORY: See Below SOCIAL HISTORY: See Below HOME MEDICATIONS: See Below ALLERGIES: See Below VITALS: See Below PHYSICAL EXAMINATION: GENERAL: Patient is awake alert in no acute distress patient is resting comfortably and showing no signs of anxiety EYES: The conjunctivae are clear. The pupils are round and reactive. EARS, NOSE, MOUTH AND THROAT: The nose is without any evidence of any deformity. Mucous membranes are moist. Tongue is midline. NECK: The neck is nontender and supple. RESPIRATORY: Normal respiratory effort is noted there is no evidence of wheezing rhonchi or rales CARDIOVASCULAR: Regular rate and rhythm noted there no murmurs rubs or gallops normal S1 normal S2. GASTROINTESTINAL: The abdomen is soft. Abdomen is nontender. MUSCULOSKELETAL/EXTREMITIES: There is no evidence of gross deformity full range of motion is noted in the hips and shoulders. SKIN: Skin is warm and dry. Port was noted in the right chest wall. There is no erythema or swelling. NEUROLOGIC: Patient is awake alert and oriented x3. MEDICAL DECISION MAKING: The patient is a 57-year-old female who presented to the emergency department at the request of our pharmacy. The patient was seen yesterday for unrelated symptoms which included blood transfusion. The patient's had blood transfusion as well as platelet transfusion in the past. She does have a port in her right chest. The patient was found to have significant neutropenia yesterday. Also had a low-grade fever. No definite source was found. The patient was told to come back to the emergency department after blood culture showed gram-positive cocci. The patient was hypotensive upon arrival. She was treated with IV flui ds. I discussed patient's laboratory results with her. She did have a chest x- ray yesterday that I did review. Ultimately the patient was felt to be at high risk given her ongoing neutropenia as well as her bacteremia. For this reason she was treated with IV cefepime as well as IV Vanco. [facility] to evaluate the patient in the emergency department for further management and disposition. Triage Nursing notes reviewed. Prior medical records reviewed Vital Signs: reviewed and remarkable for hypotension. Differential diagnosis: Viral syndrome, otitis, pharyngitis, pneumonia, influenza, meningitis, urinary tract infection, sepsis, bacteremia, as well as other pathologies. ER treatment provided: See below Diagnostics interpreted by me: ECG: none Cardiac Monitoring: An order was placed for continuous cardiac monitoring. The monitor shows a rate of 76 bpm with sinus rhythm. Laboratory studies: As stated above and show below. Imaging studies: See below. Consultation(s): I discussed this case with Dr. Esqueda who [facility] Critical Care : I have personally spent greater than 35 minutes of critical care time in the direct management of this patient. This includes bedside care, interpretation of diagnostic studies, and testing, discussion with consultants, patient, and family members, and other required patient management activities. This 35 minutes is in excess of all separately billable procedures. Past Med/Surg History Medical History BRCA gene mutation positive Cancer of central portion of right female breast (06/08/16) Elevated troponin Elevated troponin Hx of breast cancer hx 2017 s/p b/l masectomy, XRT and chemo Hx of ovarian cancer IRENA BSO 01/2017 Hypothyroidism LLL pneumonia Neutropenic fever Pancytopenia due to antineoplastic chemotherapy Pneumonia Positive blood culture Sepsis Sepsis Surgical History History of bilateral mastectomy History of cataract extraction History of total abdominal hysterectomy and bilateral salpingo-oophorectomy Hx of colonoscopy with polypectomy last c scope 05/2021 WNL Family History Other Breast cancer Diabetes Social History Smoking Status: Never smoker Second Hand Exposure: No; Do You Dip or Chew Tobacco: No; Hx Alcohol Use: No Hx Substance Use: No Preferred Language: Tunisian Communication Ability: Effective 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 Beliefs That Will Affect Care: None marital status: Current Living Situation: Parent Current Living Situation Comment: Living with parents because they do not have steps in house and to shower Other Information That Helps Us Care for You: No Feels Safe at Home: Yes Safety Concerns: Feels Safe At This Time Assistive Devices: None Allergies Allergies Allergy/AdvReac Type Severity Reaction Status Date / Time No Known Allergies Allergy Verified 06/27/22 19:11 Home Meds Home Medications Medication Instructions Recorded Confirmed calcium carbonate 600 mg-vitamin 1 tab PO QAM 06/30/21 06/28/22 D3 5 mcg (200 unit) tablet (Calcium 600 + D(3)) cholecalciferol (vitamin D3) 125 125 mcg PO QAM 06/30/21 06/28/22 mcg (5,000 unit) tablet (Vitamin D3) exemestane 25 mg tablet 25 mg PO QAM 06/30/21 06/28/22 levothyroxine 112 mcg tablet 112 mcg PO DAILYBB 06/30/21 06/28/22 ondansetron HCl 8 mg tablet 8 mg PO Q6H PRN Nausea And Vomiting 06/30/21 06/28/22 prochlorperazine maleate 10 mg 10 mg PO Q6H PRN Nausea And 06/30/21 06/28/22 tablet Vomiting acyclovir 400 mg tablet 400 mg PO BID 12/25/21 06/28/22 calcium carbonate 500 mg calcium 500 mg PO TID PRN unknown 12/25/21 06/28/22 (1,250 mg) chewable tablet empagliflozin 10 mg tablet 10 mg PO DAILY 12/25/21 06/28/22 (Jardiance) letermovir 480 mg tablet 480 mg PO DAILY 12/25/21 06/28/22 multivitamin 1 tab PO DAILY 12/25/21 06/28/22 posaconazole 100 mg tablet,delayed 300 mg PO QAM 12/25/21 06/28/22 release metoprolol succinate 25 mg 25 mg PO DAILY 03/26/22 06/28/22 tablet,extended release 24 hr sulfamethoxazole 800 1 tab PO Q8 03/26/22 06/28/22 mg-trimethoprim 160 mg tablet (Bactrim DS) gabapentin 100 mg capsule 100 mg PO TID 04/06/22 06/28/22 tranexamic acid 650 mg tablet 650 mg PO TID PRN Bleeding 04/13/22 06/28/22 metronidazole 500 mg tablet 500 mg PO TID 06/28/22 06/28/22 prednisone 10 mg tablet 10 mg PO UD 06/28/22 06/28/22 ursodiol 300 mg capsule 300 mg PO DAILY 06/28/22 06/28/22 Results & Data (ED) Vital Signs Vital Signs - 24 hr 06/28/22 17:44 06/28/22 18:26 06/28/22 18:45 Temperature 36.8 C Temperature Source Temporal Artery Scan Pulse Rate 90 74 Pulse Rate from SpO2 Sensor Pulse Rhythm Regular Respiratory Rate 20 Respiratory Effort / Characteristics Non-Labored Spontaneous Respiratory Depth Normal Blood Pressure 90/59 L Blood Pressure [Left Arm] 78/39 L Blood Pressure Mean 69 Blood Pressure Mean [Left Arm] 52 Pulse Oximetry 100 Oxygen Delivery Method Room Air Sepsis Recent Fever Within 48 Hours No Sepsis New/Unexplained Change in Mental Status No Sepsis Action Taken by Nursing No Action Required 06/28/22 19:00 06/28/22 19:30 06/28/22 20:30 Temperature Temperature Source Pulse Rate 75 76 77 Pulse Rate from SpO2 Sensor 75 75 76 Pulse Rhythm Respiratory Rate 23 22 25 H Respiratory Effort / Characteristics Respiratory Depth Blood Pressure 99/62 L 107/55 L 97/44 L Blood Pressure [Left Arm] Blood Pressure Mean 74 72 61 Blood Pressure Mean [Left Arm] Pulse Oximetry 99 100 98 Oxygen Delivery Method Room Air Room Air Room Air Sepsis Recent Fever Within 48 Hours Sepsis New/Unexplained Change in Mental Status Sepsis Action Taken by Snf Medications Current Medication List: was personally reviewed by me Laboratory Data Attestation: I reviewed the patient's lab results. 06/28/22 18:38 06/28/22 18:38 Lab Results 06/28/22 06/28/22 06/28/22 Range/Units 07:17 18:38 18:38 WBC 0.10 L* (4.8-10.8) K/ul RBC 1.52 L (4.20-5.40) M/uL Hgb 4.5 L* (12.0-16.0) g/dl Hct 12.9 L* (37.0-47.0) % MCV 84.9 (80.0-100.0) fL MCH 29.6 (25.0-34.0) pg MCHC 34.9 (32.0-36.0) g/dL RDW Std Deviation 42.2 (36.4-46.3) fL RDW Coeff of Karey 13.6 (11.5-14.5) % Plt Count 7 L* (130-400) K/uL MPV 9.8 (9.4-12.4) fL Immature Gran % (Auto) Cancelled Neut % (Auto) Cancelled Lymph % (Auto) Cancelled [place] % (Auto) Cancelled Eos % (Auto) Cancelled Baso % (Auto) Cancelled Neut # (Auto) Cancelled Lymph # (Auto) Cancelled [place] # (Auto) Cancelled Eos # (Auto) Cancelled Baso # (Auto) Cancelled Immature Gran # (Auto) Cancelled Neutrophils % (Manual) Cancelled Band Neutrophils % Cancelled Lymphocytes % (Manual) Cancelled Prolymphocyte % Cancelled Reactive Lymphs % (Man) Cancelled Monocytes % (Manual) Cancelled Eosinophils % (Manual) Cancelled Basophils % (Manual) Cancelled Metamyelocytes % (Man) Cancelled Myelocytes % (Man) Cancelled Promyelocytes % (Man) Cancelled Blast Cells % (Manual) Cancelled Plasma Cell % (Manual) Cancelled Other Cells % Cancelled Nucleated RBC % Cancelled Neutrophils # (Manual) Cancelled Band Neutrophils # Cancelled Total Absolute Neuts Cancelled Lymphocytes # (Manual) Cancelled Prolymphocyte # Cancelled Reactive Lymphs # Cancelled Total Abs Lymphocytes Cancelled Monocytes # (Manual) Cancelled Eosinophils # (Manual) Cancelled Basophils # (Manual) Cancelled Metamyelocytes # (Man) Cancelled Myelocytes # (Manual) Cancelled Promyelocytes # (Man) Cancelled Blast Cells # (Man) Cancelled Plasma Cell # (Manual) Cancelled Other Cells # Cancelled Nucleated RBCs # (Man) Cancelled Hypersegmented Neuts Cancelled Hyposegmented Neuts Cancelled Hypogranular Neuts Cancelled Large Granular Lymphs Cancelled # Lrg Granular Lymphs Cancelled Hairy Cells Cancelled Smudge Cells Cancelled Toxic Granulation Cancelled Toxic Vacuolation Cancelled Dohle Bodies Cancelled Tom Rods Cancelled Hypogranular Platelets Cancelled Giant Platelets Cancelled Platelet Satelliting Cancelled RBC Morphology Cancelled Polychromasia Cancelled Hypochromasia Cancelled Poikilocytosis Cancelled Basophilic Stippling Cancelled Anisocytosis Cancelled Microcytosis Cancelled Macrocytosis Cancelled Spherocytes Cancelled Pappenheimer Bodies Cancelled Sickle Cells Cancelled Target Cells Cancelled Tear Drop Cells Cancelled Ovalocytes Cancelled Stomatocytes Cancelled Saha-Wesley Bodies Cancelled Echinocytes Cancelled Acanthocytes (Spur) Cancelled Rouleaux Cancelled RBC Agglutinates Cancelled Schistocytes Cancelled ESR (0-30) mm/hr Sezary Cell Cancelled Sodium 132 L (136-145) mmol/L Potassium 3.9 (3.5-5.1) mmol/L Chloride 105 (98-107) mmol/L Carbon Dioxide 22 (21-32) mmol/L Anion Gap 5 (3-11) BUN 21 (6-23) mg/dl Creatinine 0.68 (0.6-1.2) mg/dl Est Cr Clr Drug Dosing Not Reportable Est GFR ( Amer) 113.3 ml/min Est GFR (Non-Af Amer) 97.8 ml/min BUN/Creatinine Ratio 30.9 H (10-20) Glucose 149 H (70-99(Fasting)) mg/dl Calcium 8.0 L (8.6-10.3) mg/dl Total Bilirubin 0.5 (0.2-1.0) mg/dl AST 5 L (13-39) U/L ALT 13 (7-52) U/L Alkaline Phosphatase 45 (34-104) U/L C-Reactive Protein 27.49 H (0-0.5) mg/dl Total Protein 5.4 L (6.0-8.3) gm/dl Albumin 2.8 L (3.4-5.0) gm/dl Globulin 2.6 (2.5-4.0) gm/dl Albumin/Globulin Ratio 1.1 (0.9-2) Procalcitonin (0-0.5) ng/ml SARS-CoV-2, RNA, NAAT (NEGATIVE) Blood Parasites ID Cancelled Blood Type O Negative Antibody Screen NEGATIVE Crossmatch See Detail 06/28/22 06/28/22 06/28/22 Range/Units 18:38 18:38 18:42 WBC (4.8-10.8) K/ul RBC (4.20-5.40) M/uL Hgb (12.0-16.0) g/dl Hct (37.0-47.0) % MCV (80.0-100.0) fL MCH (25.0-34.0) pg MCHC (32.0-36.0) g/dL RDW Std Deviation (36.4-46.3) fL RDW Coeff of Karey (11.5-14.5) % Plt Count (130-400) K/uL MPV (9.4-12.4) fL Immature Gran % (Auto) Neut % (Auto) Lymph % (Auto) [place] % (Auto) Eos % (Auto) Baso % (Auto) Neut # (Auto) Lymph # (Auto) [place] # (Auto) Eos # (Auto) Baso # (Auto) Immature Gran # (Auto) Neutrophils % (Manual) Band Neutrophils % Lymphocytes % (Manual) Prolymphocyte % Reactive Lymphs % (Man) Monocytes % (Manual) Eosinophils % (Manual) Basophils % (Manual) Metamyelocytes % (Man) Myelocytes % (Man) Promyelocytes % (Man) Blast Cells % (Manual) Plasma Cell % (Manual) Other Cells % Nucleated RBC % Neutrophils # (Manual) Band Neutrophils # Total Absolute Neuts Lymphocytes # (Manual) Prolymphocyte # Reactive Lymphs # Total Abs Lymphocytes Monocytes # (Manual) Eosinophils # (Manual) Basophils # (Manual) Metamyelocytes # (Man) Myelocytes # (Manual) Promyelocytes # (Man) Blast Cells # (Man) Plasma Cell # (Manual) Other Cells # Nucleated RBCs # (Man) Hypersegmented Neuts Hyposegmented Neuts Hypogranular Neuts Large Granular Lymphs # Lrg Granular Lymphs Hairy Cells Smudge Cells Toxic Granulation Toxic Vacuolation Dohle Bodies Tom Rods Hypogranular Platelets Giant Platelets Platelet Satelliting RBC Morphology Polychromasia Hypochromasia Poikilocytosis Basophilic Stippling Anisocytosis Microcytosis Macrocytosis Spherocytes Pappenheimer Bodies Sickle Cells Target Cells Tear Drop Cells Ovalocytes Stomatocytes Saha-[place] Bodies Echinocytes Acanthocytes (Spur) Rouleaux RBC Agglutinates Schistocytes ESR 43 H (0-30) mm/hr Sezary Cell Sodium (136-145) mmol/L Potassium (3.5-5.1) mmol/L Chloride (98-107) mmol/L Carbon Dioxide (21-32) mmol/L Anion Gap (3-11) BUN (6-23) mg/dl Creatinine (0.6-1.2) mg/dl Est Cr Clr Drug Dosing Est GFR ( Amer) ml/min Est GFR (Non-Af Amer) ml/min BUN/Creatinine Ratio (10-20) Glucose (70-99(Fasting)) mg/dl Calcium (8.6-10.3) mg/dl Total Bilirubin (0.2-1.0) mg/dl AST (13-39) U/L ALT (7-52) U/L Alkaline Phosphatase (34-104) U/L C-Reactive Protein (0-0.5) mg/dl Total Protein (6.0-8.3) gm/dl Albumin (3.4-5.0) gm/dl Globulin (2.5-4.0) gm/dl Albumin/Globulin Ratio (0.9-2) Procalcitonin 2.18 H (0-0.5) ng/ml SARS-CoV-2, RNA, NAAT NEGATIVE (NEGATIVE) Blood Parasites ID Blood Type Antibody Screen Crossmatch Administered Medications Acyclovir (Acyclovir 400 Mg Tab) 400 mg PO BID SHAUNA Stop: 07/28/22 22:55 Last Admin: 06/29/22 00:00 Dose: 400 mg Documented By: ESG Gabapentin (Gabapentin 100 Mg Cap) 100 mg PO TID SHAUNA Stop: 07/28/22 22:55 Last Admin: 06/29/22 00:00 Dose: 100 mg Documented By: ESG Hydrocortisone Sodium (Succinate 100 mg/ Syringe) 2 mls @ 4 mls/min IV Q8H [facility] Stop: 07/29/22 05:59 Last Admin: 06/29/22 06:21 Dose: 4 mls/min Documented By: PAULA Sodium Chloride (Nss 1000ml) 1,000 mls @ 100 mls/hr IV .Q10H [facility] Stop: 07/28/22 22:55 Last Infusion: 06/29/22 01:23 Dose: 0 mls/hr Documented By: Admin: 06/28/22 23:34 Dose: 100 mls/hr Documented By: PAULA Cefepime HCl 2,000 mg/ Syringe 20 mls @ 5 mls/min IV Q8H [facility]; Protocol Stop: 07/13/22 03:59 Last Admin: 06/29/22 04:40 Dose: 5 mls/min Documented By: YESY Vancomycin HCl 1,250 mg/ (Sodium Chloride) 275 mls @ 200 mls/hr IV Q12H [facility]; Protocol Stop: 07/13/22 05:59 Last Admin: 06/29/22 06:21 Dose: 200 mls/hr Documented By: PAULA Insulin Aspart (Insulin Aspart Per Unit Charge) 0 units SC ACHS [facility] Stop: 07/28/22 22:55 Last Admin: 06/29/22 00:17 Dose: Not Given Documented By: PAULA Co-signed By: YESY Levothyroxine Sodium (Levothyroxine Sodium 112 Mcg Tablet) 112 mcg PO DAILYBB [facility] Stop: 07/29/22 06:29 Last Admin: 06/29/22 06:21 Dose: 112 mcg Documented By: PAULA Discontinued Medications Acetaminophen (Acetaminophen 500 Mg Tab) 500 mg PO PRE-TREAT@2300 [facility] Stop: 06/29/22 06:00 Last Admin: 06/28/22 23:59 Dose: 500 mg Documented By: PAULA Hydrocortisone Sodium Succinate (Hydrocortisone Sod Succinate 100 Mg/2 Ml Vial) 100 mg IV NOW STA Stop: 06/28/22 22:10 Last Admin: 06/28/22 23:40 Dose: 100 mg Documented By: PAULA Sodium Chloride (Nss 1000ml) 1,000 mls @ 999 mls/hr IV .Q1H1M ONE Stop: 06/28/22 19:29 Last Infusion: 06/28/22 22:13 Dose: 0 mls/hr Documented By: Admin: 06/28/22 19:46 Dose: 999 mls/hr Documented By: SPRING Cefepime HCl (Maxipime) 2,000 mg in 20 mls @ 5 mls/min IV NOW STA; Protocol Stop: 06/28/22 18:32 Last Admin: 06/28/22 19:46 Dose: 5 mls/min Documented By: SPRING Vancomycin HCl 2,000 mg/ (Sodium Chloride) 540 mls @ 200 mls/hr IV NOW ONE Stop: 06/28/22 21:10 Last Admin: 06/28/22 20:13 Dose: 200 mls/hr Documented By: SPRING Sodium Chloride (Nss 1000ml) 1,000 mls @ 999 mls/hr IV .Q1H1M ONE Stop: 06/28/22 21:02 Last Infusion: 06/28/22 22:13 Dose: 0 mls/hr Documented By: Admin: 06/28/22 20:13 Dose: 999 mls/hr Documented By: SPRING Trimethoprim/Sulfamethoxazole (Sulfamethoxazole/Trimethoprim Ds 800/160mg Tab) 1 tab PO Q8 SHAUNA Stop: 07/28/22 22:55 Last Admin: 06/29/22 06:21 Dose: 1 tab Documented By: Admin: 06/29/22 00:24 Dose: 1 tab Documented By: PAULA Discharge Plan Visit Data Chief Complaint: Referred by Doctor Stated Complaint: REF BY DOC,BACTERIA IN BLOOD ED Provider: Marcial Trent Discharge Problem: Bacteremia, Symptomatic anemia, MDS (myelodysplastic syndrome), Neutropenia, Thrombocytopenia Patient Disposition: Admitted As Inpatient Discharge Instructions Interventions: ED Discharge Assessment Last Done: 06/28/22 22:15 Neutropenia Qualifiers: Neutropenia type: unspecified Qualified Code(s): D70.9 - Neutropenia, unspecified
[2022-06-28 19:26] LABS: Albumin Level 2.8 gm/dl (3.4-5.0); Anion Gap 5 (3-11); Bilirubin,Total 0.5 mg/dl (0.2-1.0); Carbon Dioxide 22 mmol/L (21-32); Chloride 105 mmol/L (98-107); Potassium 3.9 mmol/L (3.5-5.1); Sodium 132 mmol/L (136-145)
[2022-06-28 19:32] LABS: Hematocrit (blood only) 12.9 % (37.0-47.0); Hemoglobin 4.5 g/dl (12.0-16.0); Mean Corpuscular Hemoglobin 29.6 pg (25.0-34.0); Mean Corpuscular Hgb Conc 34.9 g/dL (32.0-36.0); Mean Corpuscular Volume 84.9 fL (80.0-100.0); Mean Platelet Volume 9.8 fL (9.4-12.4); Platelet Count 7 K/uL (130-400); RDW Coefficient of Variation 13.6 % (11.5-14.5); RDW Standard Deviation 42.2 fL (36.4-46.3); Red Blood Count 1.52 M/uL (4.20-5.40)
[2022-06-28 19:33] LABS: Alanine Aminotransferase 13 U/L (7-52); Albumin Globulin Ratio 1.1 (0.9-2); Alkaline Phosphatase 45 U/L (34-104); Aspartate Aminotransferase 5 U/L (13-39); BUN Creatinine Ratio 30.9 (10-20); Blood Urea Nitrogen 21 mg/dl (6-23); C Reactive Protein 27.49 mg/dl (0-0.5); Est GFR (African American) 113.3 ml/min; Est GFR (Non-African American) 97.8 ml/min; Globulin 2.6 gm/dl (2.5-4.0); Glucose 149 mg/dl (70-99(Fasting)); Total Protein 5.4 gm/dl (6.0-8.3)
[2022-06-28] MEDS ORDERED: HYDROCORTISONE SOD SUCCINATE 100 MG/2 ML VIAL IV STA (22:09)
--- NOTE | 2022-06-28 22:11 | History and Physical Report ---
DATE OF ADMISSION: 06/28/2022 CHIEF COMPLAINT: Bacteremia, pancytopenia. HISTORY OF PRESENT ILLNESS: This is a 57-year-old female with past medical history significant for breast cancer, status post bilateral mastectomy in 2017, status post chemo, history of ovarian cancer, status post total abdominal hysterectomy and bilateral salpingo-oophorectomy in 2017 and also status post chemo, BRCA positive, hypothyroidism, history of MDS, status post stem cell transplant in 10/[address] [facility] and she says her last chemo was about a month ago, history of COVID. She was here in the hospital in the ER last night because of feeling weak and for any requirement of blood transfusion, but she was discharged home as she was fine and was called back today because of bacteremia. She had some temperature yesterday. The patient says she was recently in the [facility] for 1 month for fever, could not figure out why she had a fever. Thought it could be from the MDS or [id number] disease, and she was just discharged 5 days ago from [place] after 1 month's stay and she had a new line placed 5 days ago before discharge as per patient.. Currently, when she came in, she was somewhat hypotensive, blood pressure was in the 70s and 90s, improved with fluids. Resting comfortably. Denies any other complaints. Denies any cough. Denies any fever currently, no chest pain, no shortness of breath, no nausea, no abdominal pain, no headache, no blurred visions, no earache, no runny nose, no sore throat. She has some epistaxis, but that has stopped now. No blood in stools or black stools. No hematuria. Normal bowel and bladder movements. No swelling in the legs. Currently living with her parents. Ambulates okay at home. In the ER, labs showed a WBC of 0.1, hemoglobin 4.5, platelets 7. C-reactive protein of 27. Procalcitonin 2.18. COVID negative. ALLERGIES: No known drug allergies. PAST MEDICAL HISTORY: As mentioned above. PAST SURGICAL HISTORY: Bilateral mastectomy, colonoscopy, dental surgery, ganglion cyst removal, ligation of oviducts, cataract surgery, total abdominal hysterectomy with bilateral salpingo-oophorectomy. MEDICATIONS: The patient is on acyclovir 400 mg p.o. b.i.d., Tums 500 mg p.o. t.i.d. p.r.n., calcium plus vitamin D 1 tablet p.o. daily, vitamin D 125 mcg p.o. daily, Jardiance 10 mg p.o. daily, exemestane 25 mg p.o. daily, gabapentin 100 mg p.o. t.i.d., lansoprazole 30 mg p.o. daily, letermovir 480 mg p.o. daily, levothyroxine 112 mcg p.o. daily, metoprolol succinate 25 mg p.o. daily, multivitamin 1 tablet daily, Zofran 8 mg p.o. q.6 hours p.r.n., posaconazole 300 mg p.o. daily, prochlorperazine 10 mg p.o. q.6 hours p.r.n., Bactrim 1 tablet p.o. 3 times a week, tramadol 50 mg p.o. q.4 hours p.r.n. FAMILY HISTORY: Significant for sister has diabetes, maternal grandfather had kidney failure, daughter has thyroid disorder, aunt has gastric cancer. SOCIAL HISTORY: , no smoking, no alcohol, no drug use. REVIEW OF SYSTEMS: As per HPI. Rest of review of systems is negative. PHYSICAL EXAMINATION: GENERAL: The patient is of moderate build, not in acute distress. VITAL SIGNS: Temperature 36.8, pulse 76, respiratory rate 22, blood pressure 107/55, oxygen 100% on room air. HEENT: Pupils equal, round and reactive to light. Pallor present. No icterus. Oral mucosa moist. NECK: No JVD, no neck masses. CARDIOVASCULAR: S1 and S2 heard. Regular rate and rhythm. No murmur, no gallop. RESPIRATORY SYSTEM: Normal AP diameter. No accessory muscle use. No wheezing or crackles. ABDOMEN: Soft, bowel sounds present, nontender, no distention. CENTRAL NERVOUS SYSTEM: Cranial nerves II-XII grossly intact, nonfocal. EXTREMITIES: No edema, no erythema. LABORATORY DATA: WBC 0.1, hemoglobin 4.5, hematocrit 12.9, platelets 7. Sodium 132, potassium 3.9, chloride 105, bicarb 22, BUN 21, creatinine 0.6, serum glucose 149, calcium 8, total bilirubin 0.5, AST 5, ALT 13, alkaline phosphatase 45. C-reactive protein 27. Total protein 5.4, albumin 2.8. Procalcitonin 2.18. SARS-CoV-2 rapid test negative. IMAGING DATA: She had a chest x-ray yesterday while she was in the ER. There were no acute findings. ASSESSMENT AND PLAN: This is a 57-year-old female who came yesterday for weakness and today called in because of bacteremia and also found to have pancytopenia. 1. Bacteremia with gram-positive cocci. We will follow the final cultures. The patient says she was recently in the [place] for fever, but could not figure out why she had a fever, thought to be from myelodysplastic syndrome or [id number] disease, and she recently had a line replaced about 5-6 days ago, some erythema at the line, but there is no drainage. We will be empirically starting on vancomycin and cefepime. We will follow the cultures. We will also consult infectious disease. IV fluids. Closely monitor in the telemetry floor. When she came in, she was hypotensive and that is improved. We will monitor the hemodynamics. 2. Pancytopenia. The patient has myelodysplastic syndrome, gets frequent platelet and blood transfusions. Currently, hemoglobin is 4.5, platelets are 7, WBC 0.1. We will do neutropenic precautions and we will give 3 units of irradiated blood and 1 unit of plateletpheresis and follow the laboratories. Consult hematology/oncology in the a.m. Closely monitor. 3. Hyponatremia with a sodium of 132. Getting fluids. Follow the repeat laboratories. 4. History of myelodysplastic syndrome, status post stem cell transplant in 10/[address] [facility], last chemotherapy was about a month ago as per patient. We will continue her prophylactic antibiotics. Consult hematology/oncology. 5. History of breast cancer, status post bilateral mastectomy in 2017, status post chemotherapy. 6. History of ovarian cancer, status post total abdominal hysterectomy with bilateral salpingo-oophorectomy in 2017, status post chemotherapy. 7. History of diabetes. Hold Jardiance. Insulin sliding scale. Follow the blood sugars. 8. History of hypothyroidism, on Synthroid. 9. Deep venous thrombosis prophylaxis, sequential compression devices for now. The patient has thrombocytopenia. DISPOSITION: Closely monitor in the tele. PT/OT prior to discharge. Social service to help with discharge planning. Level 1, full code if there is a chance of recovery as per my discussion with the patient. Job ID: [id number] MTDD
[2022-06-28] MEDS ORDERED: NITROGLYCERIN SL 0.4 MG/TAB TAB SL PRN (22:56)
[2022-06-28] MEDS ORDERED: CARBOHYDRATES FOR HYPOGLYCEMIA PO PRN (22:56)
[2022-06-28] MEDS ORDERED: SODIUM CHLORIDE 0.9% 250 ML IV PRN (22:56)
[2022-06-28] MEDS ORDERED: GLUCOSE 10 TAB/TUBE PO PRN (22:56)
[2022-06-28] MEDS ORDERED: PROCHLORPERAZINE MALEATE 10 MG TAB PO PRN (22:56)
[2022-06-28] MEDS ORDERED: ACETAMINOPHEN 325 MG TAB PO PRN (22:56)
[2022-06-28] MEDS ORDERED: GLUCOSE 40% GEL 15 GM TUBE PO PRN (22:56)
[2022-06-28] MEDS ORDERED: ONDANSETRON INJ 2 MG/ML 2 ML VIAL IV PRN (22:56)
[2022-06-28] MEDS ORDERED: DEXTROSE 50% 50 ML SYRINGE IV PRN (22:56)
[2022-06-28] MEDS ORDERED: GLUCAGON FOR INJ 1 MG VIAL SQ PRN (22:56)
[2022-06-28] MEDS ORDERED: ACETAMINOPHEN 500 MG TAB PO SCH (23:00)
[2022-06-28] MEDS: SODIUM CHLORIDE 0.9% 1000ML 1,000 ML IV SCH (23:34)
[2022-06-29] MEDS: INSULIN ASPART PER UNIT CHARGE SC SCH ×5 (00:17→21:04)
[2022-06-29] MEDS: SULFAMETHOXAZOLE/TRIMETHOPRIM DS 800/160MG TAB PO SCH ×4 (00:24→20:30)
[2022-06-29] MEDS: CEFEPIME 2,000 MG in SYRINGE 0 ML IV SCH ×3 (04:40→20:29)
[2022-06-29] MEDS ORDERED: VANCOMYCIN HCL 1,250 MG in SODIUM CHLORIDE 0.9% 250 ML IV SCH (06:00)
[2022-06-29] MEDS: HYDROCORTISONE SOD 100 MG in SYRINGE 0 ML IV SCH ×3 (06:21→20:58)
[2022-06-29] MEDS ORDERED: LEVOTHYROXINE SODIUM 112 MCG TABLET PO SCH (06:30)
[2022-06-29] MEDS: ACYCLOVIR 400 MG TAB PO SCH ×3 (08:34→20:29)
[2022-06-29] MEDS: GABAPENTIN 100 MG CAP PO SCH ×4 (08:34→20:30)
--- NOTE | 2022-06-29 08:48 | Oncology Consultation ---
Date of Consultation June 29, 2022 Assessment & Plan (1) Neutropenic fever: (2) Thrombocytopenia: (3) Anemia: (4) MDS (myelodysplastic syndrome): Plan Pleasant female with extensive oncologic/hematologic history who was admitted for neutropenic fever with micrococcus species on blood culture. Given her very complicated history of relapsed MDS for which she is s/p transplant, pancytopenia with recurrent infections for which she will require infectious disease evaluation, her case discussed with her detective at [facility] who recommended transfer to [facility]. While awaiting transfer, agree with broad-spectrum antibiotic coverage. Transfuse for hemoglobin less than 7.5 and hematocrit less than 15,000. History of Present Illness Reason for Consultation: Myelodysplastic syndrome Attending Physician: Pelon Abad MD History of Present Illness Ms. Cowan is a very pleasant 57-year-old female known to me at [facility] who has an extensive oncologic history including breast cancer, ovarian cancer in the setting of BRCA2 mutation and relapsed therapy related MDS for which she is s/p allogeneic stem cell transplant on 10/14/2021. She started azacitidine/venetoclax for relapsed MDS in February,. Bone marrow biopsy in May, revealed persistent MDS. Patient was recently discharged from [facility] after being admitted for close to 1 month for neutropenic fever due to gram-positive bacteremia as blood culture from PICC line revealed Clostridium Ramosum. She presented to the ER [facility] over the weekend with complaints of fatigue and temperature of 100.3. Labs were obtained at that time including CBC, blood cultures. CBC revealed leukopenia with white count of 0.26, hemoglobin of 7.1 and platelet count of 23,000. She received 1 unit of PRBC transfusion prior to being discharged from the ER. Results of blood culture obtained during ER visit grew micrococcus species for which patient was called and ER evaluation was recommended. Patient was on arrival to the ER yesterday, she was found to have a hemoglobin of 4.7 for which she has received 3 units PRBC transfusion. She states that she had a temperature of 103 while at home which has resolved. Denies chest pain, shortness of breath, abdominal pain, nausea, vomiting or any other issues Allergies Allergy/AdvReac Type Severity Reaction Status Date / Time No Known Allergies Allergy Verified 06/27/22 19:11 Home Medications Medication Instructions Recorded Confirmed Type calcium carbonate 600 mg-vitamin 1 tab PO QAM 06/30/21 06/28/22 History D3 5 mcg (200 unit) tablet (Calcium 600 + D(3)) cholecalciferol (vitamin D3) 125 125 mcg PO QAM 06/30/21 06/28/22 History mcg (5,000 unit) tablet (Vitamin D3) exemestane 25 mg tablet 25 mg PO QAM 06/30/21 06/28/22 History levothyroxine 112 mcg tablet 112 mcg PO DAILYBB 06/30/21 06/28/22 History ondansetron HCl 8 mg tablet 8 mg PO Q6H PRN Nausea And Vomiting 06/30/21 06/28/22 History prochlorperazine maleate 10 mg 10 mg PO Q6H PRN Nausea And 06/30/21 06/28/22 History tablet Vomiting acyclovir 400 mg tablet 400 mg PO BID 12/25/21 06/28/22 History calcium carbonate 500 mg calcium 500 mg PO TID PRN unknown 12/25/21 06/28/22 History (1,250 mg) chewable tablet empagliflozin 10 mg tablet 10 mg PO DAILY 12/25/21 06/28/22 History (Jardiance) letermovir 480 mg tablet 480 mg PO DAILY 12/25/21 06/28/22 History multivitamin 1 tab PO DAILY 12/25/21 06/28/22 History posaconazole 100 mg tablet,delayed 300 mg PO QAM 12/25/21 06/28/22 History release metoprolol succinate 25 mg 25 mg PO DAILY 03/26/22 06/28/22 History tablet,extended release 24 hr sulfamethoxazole 800 1 tab PO DAILY 03/26/22 06/29/22 History mg-trimethoprim 160 mg tablet (Bactrim DS) gabapentin 100 mg capsule 100 mg PO TID 04/06/22 06/28/22 History tranexamic acid 650 mg tablet 650 mg PO TID PRN Bleeding 04/13/22 06/28/22 His tory metronidazole 500 mg tablet 500 mg PO TID 06/28/22 06/28/22 History prednisone 10 mg tablet 10 mg PO UD 06/28/22 06/28/22 History ursodiol 300 mg capsule 300 mg PO DAILY 06/28/22 06/28/22 History Patient History Medical History BRCA gene mutation positive Cancer of central portion of right female breast (06/08/16) Elevated troponin Elevated troponin Hx of breast cancer hx 2017 s/p b/l masectomy, XRT and chemo Hx of ovarian cancer IRENA BSO 01/2017 Hypothyroidism LLL pneumonia Neutropenic fever Pancytopenia due to antineoplastic chemotherapy Pneumonia Positive blood culture Sepsis Sepsis Surgical History History of bilateral mastectomy History of cataract extraction History of total abdominal hysterectomy and bilateral salpingo-oophorectomy Hx of colonoscopy with polypectomy last c scope 05/2021 WNL Family History Other Breast cancer Diabetes Social History Smoking Status: Never smoker Second Hand Exposure: No; Do You Dip or Chew Tobacco: No; Hx Alcohol Use: No Hx Substance Use: No Preferred Language: [place]ian Communication Ability: Effective Printing 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 Required: No Beliefs That Will Affect Care: None marital status: Current Living Situation: Parent Current Living Situation Comment: Living with parents because they do not have steps in house and to shower Other Information That Helps Us Care for You: No Feels Safe at Home: Yes Safety Concerns: Feels Safe At This Time Assistive Devices: None Review of Systems Review of Systems: All systems reviewed & are unremarkable except as noted in Subjective Results & Data Vital Signs (Past 12 Hours) Vital Signs Temp Pulse Pulse Resp BP BP Pulse Ox 06/29/22 08:23 36.7 C 69 19 98/63 L 97 06/29/22 08:00 66 06/29/22 07:29 36.4 C L 69 19 97/59 L 100 06/29/22 06:32 36.4 C L 66 20 106/72 100 06/29/22 05:38 36.4 C L 69 18 95/62 L 99 06/29/22 04:38 36.5 C 61 18 91/54 L 97 06/29/22 04:08 36.6 C 61 20 93/58 L 98 06/29/22 03:53 36.5 C 69 18 100/65 98 06/29/22 03:53 36.5 C 69 18 100/65 98 06/29/22 03:37 36.5 C 66 20 98/63 L 98 06/29/22 03:32 36.5 C 66 20 98/63 L 98 06/29/22 03:13 36.7 C 74 20 94/61 L 98 06/29/22 02:22 36.7 C 75 22 88/53 L 98 06/29/22 01:52 36.8 C 79 18 87/51 L 97 06/28/22 22:56 06/29/22 01:37 36.4 C L 85 20 86/48 L 98 06/29/22 01:16 37.1 C 90 18 86/50 L 97 06/29/22 01:01 38.1 C H 86 18 92/55 L 96 06/29/22 00:55 37.6 C H 91 H 18 89/48 L 95 06/28/22 22:56 98 H 06/29/22 00:25 37.2 C 100 H 20 109/60 99 06/29/22 00:10 36.9 C 88 20 86/52 L 100 06/28/22 23:46 37.7 C H 95 H 22 97/48 L 99 06/28/22 22:30 36.9 C 86 22 99/66 L 100 06/28/22 22:00 85 22 96/54 L 97 06/28/22 21:30 73 84/49 L 98 06/28/22 21:00 71 28 H 88/54 L 95 Pulse Ox O2 Del Method O2 Del Method O2 Flow Rate 06/29/22 08:23 06/29/22 08:00 06/29/22 07:29 Room Air 06/29/22 06:32 06/29/22 05:38 06/29/22 04:38 06/29/22 04:08 06/29/22 03:53 06/29/22 03:53 06/29/22 03:37 0 06/29/22 03:32 0 06/29/22 03:13 06/29/22 02:22 06/29/22 01:52 06/28/22 22:56 100 Room Air 06/29/22 01:37 06/29/22 01:16 06/29/22 01:01 06/29/22 00:55 06/28/22 22:56 06/29/22 00:25 06/29/22 00:10 06/28/22 23:46 06/28/22 22:30 Room Air 06/28/22 22:00 Room Air 06/28/22 21:30 06/28/22 21:00 Room Air
--- NOTE | 2022-06-29 08:48 | Hospitalist Progress Note ---
Date of Service June 29, 2022 Assessment & Plan (1) Neutropenic fever: (2) Bacteremia: (3) MDS (myelodysplastic syndrome): Plan: This is a 57-year-old female who came to ER for weakness and was discharged from ER, now called in because of bacteremia and also found to have pancytopenia. Neutropenic fever. 1. Bacteremia with gram-positive cocci. Cultx positive for Micrococcus. Follow the final cultures. The patient was recently in the [facility] for fever, but could not figure out why she had a fever, thought to be from myelodysplastic syndrome or [id number] disease, and she recently had a line replaced about 5-6 days ago, some erythema at the line, but there is no drainage. Empirically started on vancomycin and cefepime.Follow the cultures.Infectious disease consult placed. IV fluids. Closely monitor in the telemetry floor. Initially hypotensive then BP improved. We will monitor the hemodynamics. 2. Pancytopenia. The patient has myelodysplastic syndrome, status post stem cell transplant in 10/2021 in [facility], last chemotherapy was about a month ago as per patient. Pt gets frequent platelet and blood transfusions. On admission hemoglobin is 4.5, platelets 7, WBC 0.1. We will do neutropenic precautions and we will gave 3 units of irradiated blood and 1 unit of platelets on admission. Pt was then transfused additional 1 unit of plt on admission. Consulted hematology/oncology - discussed in detail w/ Dr. Harvey (who discussed with pt's primary oncologist at [place]) and recommend transfer to [facility]. I contacted [facility] transfer center and pt was accepted for transfer to their care. 3. Hyponatremia with a sodium of 132. Getting fluids. Follow the repeat laboratories. 4. History of breast cancer, status post bilateral mastectomy in 2017, status post chemotherapy. 5. History of ovarian cancer, status post total abdominal hysterectomy with bilateral salpingo-oophorectomy in 2017, status post chemotherapy. 6. Diabetes. Hold Jardiance. Insulin sliding scale. Follow the blood sugars. 7. Hypothyroidism, on Synthroid. DVT prophylaxis, SCDs for now. The patient has thrombocytopenia. DISPOSITION: Closely monitor in the tele.Plan to transfer to [facility] when bed available. Admission and Anticipated Discharge Date Admission Date: June 28, 2022 Subjective Pt seen in follow up of bacteremia, fever, neutropenia Pt admitted last night, required multiple transfusions, received 3 units of PRBCs, and 1 unit of platelets. Currently lying in bed, in no acute distress. Reports feeling much better since admission. No chest pain or shortness of breath, denies abdominal pain. Dr. Bae, hematology consulted, ID consulted. Review of Systems Review of Systems: All systems reviewed & are unremarkable except as noted in Subjective Physical Exam Physical Exam: GENERAL: The patient is of moderate build, not in acute distress. HEENT: Pupils equal, round and reactive to light. Pallor present. No icterus. Oral mucosa moist. NECK: No JVD, no neck masses. CARDIOVASCULAR: S1 and S2 heard. Regular rate and rhythm. No murmur, no gallop. RESPIRATORY: Normal AP diameter. No accessory muscle use. No wheezing or crackles. ABDOMEN: Soft, bowel sounds present, nontender, no distention. NEURO:awake, alert, oriented, answering appropriately, speech fluent, moves extremities EXTREMITIES: No edema, no erythema. Results & Data Results & Data Vital Signs (Past 12 Hours) Vital Signs Temp Pulse Pulse Resp BP BP Pulse Ox 06/29/22 08:23 36.7 C 69 19 98/63 L 97 06/29/22 08:00 66 06/29/22 07:29 36.4 C L 69 19 97/59 L 100 06/29/22 06:32 36.4 C L 66 20 106/72 100 06/29/22 05:38 36.4 C L 69 18 95/62 L 99 06/29/22 04:38 36.5 C 61 18 91/54 L 97 06/29/22 04:08 36.6 C 61 20 93/58 L 98 06/29/22 03:53 36.5 C 69 18 100/65 98 06/29/22 03:53 36.5 C 69 18 100/65 98 06/29/22 03:37 36.5 C 66 20 98/63 L 98 06/29/22 03:32 36.5 C 66 20 98/63 L 98 06/29/22 03:13 36.7 C 74 20 94/61 L 98 06/29/22 02:22 36.7 C 75 22 88/53 L 98 06/29/22 01:52 36.8 C 79 18 87/51 L 97 06/28/22 22:56 06/29/22 01:37 36.4 C L 85 20 86/48 L 98 06/29/22 01:16 37.1 C 90 18 86/50 L 97 06/29/22 01:01 38.1 C H 86 18 92/55 L 96 06/29/22 00:55 37.6 C H 91 H 18 89/48 L 95 06/28/22 22:56 98 H 06/29/22 00:25 37.2 C 100 H 20 109/60 99 06/29/22 00:10 36.9 C 88 20 86/52 L 100 06/28/22 23:46 37.7 C H 95 H 22 97/48 L 99 06/28/22 22:30 36.9 C 86 22 99/66 L 100 06/28/22 22:00 85 22 96/54 L 97 06/28/22 21:30 73 84/49 L 98 06/28/22 21:00 71 28 H 88/54 L 95 Pulse Ox O2 Del Method O2 Del Method O2 Flow Rate 06/29/22 08:23 06/29/22 08:00 06/29/22 07:29 Room Air 06/29/22 06:32 06/29/22 05:38 06/29/22 04:38 06/29/22 04:08 06/29/22 03:53 06/29/22 03:53 06/29/22 03:37 0 06/29/22 03:32 0 06/29/22 03:13 06/29/22 02:22 06/29/22 01:52 06/28/22 22:56 100 Room Air 06/29/22 01:37 06/29/22 01:16 06/29/22 01:01 06/29/22 00:55 06/28/22 22:56 06/29/22 00:25 06/29/22 00:10 06/28/22 23:46 06/28/22 22:30 Room Air 06/28/22 22:00 Room Air 06/28/22 21:30 06/28/22 21:00 Room Air Laboratory Results 06/29/22 06/29/22 06/29/22 Range/Units 08:25 08:25 08:25 WBC Pending (4.8-10.8) K/ul RBC Pending (4.20-5.40) M/uL Hgb Pending (12.0-16.0) g/dl Hct Pending (37.0-47.0) % MCV Pending (80.0-100.0) fL MCH Pending (25.0-34.0) pg MCHC Pending (32.0-36.0) g/dL RDW Std Deviation (36.4-46.3) fL RDW Coeff of Karey (11.5-14.5) % Plt Count Pending (130-400) K/uL MPV (9.4-12.4) fL Immature Gran % (Auto) Neut % (Auto) Lymph % (Auto) Mcdowell % (Auto) Eos % (Auto) Baso % (Auto) Neut # (Auto) Lymph # (Auto) Mcdowell # (Auto) Eos # (Auto) Baso # (Auto) Immature Gran # (Auto) Neutrophils % (Manual) Band Neutrophils % Lymphocytes % (Manual) Prolymphocyte % Reactive Lymphs % (Man) Monocytes % (Manual) Eosinophils % (Manual) Basophils % (Manual) Metamyelocytes % (Man) Myelocytes % (Man) Promyelocytes % (Man) Blast Cells % (Manual) Plasma Cell % (Manual) Other Cells % Nucleated RBC % Neutrophils # (Manual) Band Neutrophils # Total Absolute Neuts Lymphocytes # (Manual) Prolymphocyte # Reactive Lymphs # Total Abs Lymphocytes Monocytes # (Manual) Eosinophils # (Manual) Basophils # (Manual) Metamyelocytes # (Man) Myelocytes # (Manual) Promyelocytes # (Man) Blast Cells # (Man) Plasma Cell # (Manual) Other Cells # Nucleated RBCs # (Man) Hypersegmented Neuts Hyposegmented Neuts Hypogranular Neuts Large Granular Lymphs # Lrg Granular Lymphs Hairy Cells Smudge Cells Toxic Granulation Toxic Vacuolation Dohle Bodies Tom Rods Hypogranular Platelets Giant Platelets Platelet Satelliting RBC Morphology Polychromasia Hypochromasia Poikilocytosis Basophilic Stippling Anisocytosis Microcytosis Macrocytosis Spherocytes Pappenheimer Bodies Sickle Cells Target Cells Tear Drop Cells Ovalocytes Stomatocytes Saha-Moore Bodies Echinocytes Acanthocytes (Spur) Rouleaux RBC Agglutinates Schistocytes ESR (0-30) mm/hr Sezary Cell PT INR APTT PTT Ratio Sodium Pending (136-145) mmol/L Potassium Pending (3.5-5.1) mmol/L Chloride Pending (98-107) mmol/L Carbon Dioxide Pending (21-32) mmol/L Anion Gap Pending (3-11) BUN Pending (6-23) mg/dl Creatinine Pending (0.6-1.2) mg/dl Est Cr Clr Drug Dosing Pending Est GFR ( Amer) Pending ml/min Est GFR (Non-Af Amer) Pending ml/min BUN/Creatinine Ratio Pending (10-20) Glucose Pending (70-99(Fasting)) mg/dl POC Glucose (70-99) mg/dl Estimat Average Glucose Pending Hemoglobin A1c Pending Calcium Pending (8.6-10.3) mg/dl Magnesium Pending Total Bilirubin (0.2-1.0) mg/dl AST (13-39) U/L ALT (7-52) U/L Alkaline Phosphatase (34-104) U/L C-Reactive Protein (0-0.5) mg/dl Total Protein (6.0-8.3) gm/dl Albumin (3.4-5.0) gm/dl Globulin (2.5-4.0) gm/dl Albumin/Globulin Ratio (0.9-2) Procalcitonin (0-0.5) ng/ml SARS-CoV-2, RNA, NAAT (NEGATIVE) Blood Parasites ID Blood Type Antibody Screen Crossmatch 06/29/22 06/29/22 06/28/22 Range/Units 08:25 07:59 23:32 WBC (4.8-10.8) K/ul RBC (4.20-5.40) M/uL Hgb (12.0-16.0) g/dl Hct (37.0-47.0) % MCV (80.0-100.0) fL MCH (25.0-34.0) pg MCHC (32.0-36.0) g/dL RDW Std Deviation (36.4-46.3) fL RDW Coeff of Karey (11.5-14.5) % Plt Count (130-400) K/uL MPV (9.4-12.4) fL Immature Gran % (Auto) Neut % (Auto) Lymph % (Auto) Mcdowell % (Auto) Eos % (Auto) Baso % (Auto) Neut # (Auto) Lymph # (Auto) Mcdowell # (Auto) Eos # (Auto) Baso # (Auto) Immature Gran # (Auto) Neutrophils % (Manual) Band Neutrophils % Lymphocytes % (Manual) Prolymphocyte % Reactive Lymphs % (Man) Monocytes % (Manual) Eosinophils % (Manual) Basophils % (Manual) Metamyelocytes % (Man) Myelocytes % (Man) Promyelocytes % (Man) Blast Cells % (Manual) Plasma Cell % (Manual) Other Cells % Nucleated RBC % Neutrophils # (Manual) Band Neutrophils # Total Absolute Neuts Lymphocytes # (Manual) Prolymphocyte # Reactive Lymphs # Total Abs Lymphocytes Monocytes # (Manual) Eosinophils # (Manual) Basophils # (Manual) Metamyelocytes # (Man) Myelocytes # (Manual) Promyelocytes # (Man) Blast Cells # (Man) Plasma Cell # (Manual) Other Cells # Nucleated RBCs # (Man) Hypersegmented Neuts Hyposegmented Neuts Hypogranular Neuts Large Granular Lymphs # Lrg Granular Lymphs Hairy Cells Smudge Cells Toxic Granulation Toxic Vacuolation Dohle Bodies Tom Rods Hypogranular Platelets Giant Platelets Platelet Satelliting RBC Morphology Polychromasia Hypochromasia Poikilocytosis Basophilic Stippling Anisocytosis Microcytosis Macrocytosis Spherocytes Pappenheimer Bodies Sickle Cells Target Cells Tear Drop Cells Ovalocytes Stomatocytes Saha-Moore Bodies Echinocytes Acanthocytes (Spur) Rouleaux RBC Agglutinates Schistocytes ESR (0-30) mm/hr Sezary Cell PT Pending INR Pending APTT Pending PTT Ratio Pending Sodium (136-145) mmol/L Potassium (3.5-5.1) mmol/L Chloride (98-107) mmol/L Carbon Dioxide (21-32) mmol/L Anion Gap (3-11) BUN (6-23) mg/dl Creatinine (0.6-1.2) mg/dl Est Cr Clr Drug Dosing Est GFR ( Amer) ml/min Est GFR (Non-Af Amer) ml/min BUN/Creatinine Ratio (10-20) Glucose (70-99(Fasting)) mg/dl POC Glucose 117 H 133 H (70-99) mg/dl Estimat Average Glucose Hemoglobin A1c Calcium (8.6-10.3) mg/dl Magnesium Total Bilirubin (0.2-1.0) mg/dl AST (13-39) U/L ALT (7-52) U/L Alkaline Phosphatase (34-104) U/L C-Reactive Protein (0-0.5) mg/dl Total Protein (6.0-8.3) gm/dl Albumin (3.4-5.0) gm/dl Globulin (2.5-4.0) gm/dl Albumin/Globulin Ratio (0.9-2) Procalcitonin (0-0.5) ng/ml SARS-CoV-2, RNA, NAAT (NEGATIVE) Blood Parasites ID Blood Type Antibody Screen Crossmatch 06/28/22 06/28/22 06/28/22 Range/Units 18:42 18:38 18:38 WBC (4.8-10.8) K/ul RBC (4.20-5.40) M/uL Hgb (12.0-16.0) g/dl Hct (37.0-47.0) % MCV (80.0-100.0) fL MCH (25.0-34.0) pg MCHC (32.0-36.0) g/dL RDW Std Deviation (36.4-46.3) fL RDW Coeff of Karey (11.5-14.5) % Plt Count (130-400) K/uL MPV (9.4-12.4) fL Immature Gran % (Auto) Neut % (Auto) Lymph % (Auto) Mcdowell % (Auto) Eos % (Auto) Baso % (Auto) Neut # (Auto) Lymph # (Auto) Mcdowell # (Auto) Eos # (Auto) Baso # (Auto) Immature Gran # (Auto) Neutrophils % (Manual) Band Neutrophils % Lymphocytes % (Manual) Prolymphocyte % Reactive Lymphs % (Man) Monocytes % (Manual) Eosinophils % (Manual) Basophils % (Manual) Metamyelocytes % (Man) Myelocytes % (Man) Promyelocytes % (Man) Blast Cells % (Manual) Plasma Cell % (Manual) Other Cells % Nucleated RBC % Neutrophils # (Manual) Band Neutrophils # Total Absolute Neuts Lymphocytes # (Manual) Prolymphocyte # Reactive Lymphs # Total Abs Lymphocytes Monocytes # (Manual) Eosinophils # (Manual) Basophils # (Manual) Metamyelocytes # (Man) Myelocytes # (Manual) Promyelocytes # (Man) Blast Cells # (Man) Plasma Cell # (Manual) Other Cells # Nucleated RBCs # (Man) Hypersegmented Neuts Hyposegmented Neuts Hypogranular Neuts Large Granular Lymphs # Lrg Granular Lymphs Hairy Cells Smudge Cells Toxic Granulation Toxic Vacuolation Dohle Bodies Tom Rods Hypogranular Platelets Giant Platelets Platelet Satelliting RBC Morphology Polychromasia Hypochromasia Poikilocytosis Basophilic Stippling Anisocytosis Microcytosis Macrocytosis Spherocytes Pappenheimer Bodies Sickle Cells Target Cells Tear Drop Cells Ovalocytes Stomatocytes Saha-Moore Bodies Echinocytes Acanthocytes (Spur) Rouleaux RBC Agglutinates Schistocytes ESR 43 H (0-30) mm/hr Sezary Cell PT INR APTT PTT Ratio Sodium (136-145) mmol/L Potassium (3.5-5.1) mmol/L Chloride (98-107) mmol/L Carbon Dioxide (21-32) mmol/L Anion Gap (3-11) BUN (6-23) mg/dl Creatinine (0.6-1.2) mg/dl Est Cr Clr Drug Dosing Est GFR ( Amer) ml/min Est GFR (Non-Af Amer) ml/min BUN/Creatinine Ratio (10-20) Glucose (70-99(Fasting)) mg/dl POC Glucose (70-99) mg/dl Estimat Average Glucose Hemoglobin A1c Calcium (8.6-10.3) mg/dl Magnesium Total Bilirubin (0.2-1.0) mg/dl AST (13-39) U/L ALT (7-52) U/L Alkaline Phosphatase (34-104) U/L C-Reactive Protein (0-0.5) mg/dl Total Protein (6.0-8.3) gm/dl Albumin (3.4-5.0) gm/dl Globulin (2.5-4.0) gm/dl Albumin/Globulin Ratio (0.9-2) Procalcitonin 2.18 H (0-0.5) ng/ml SARS-CoV-2, RNA, NAAT NEGATIVE (NEGATIVE) Blood Parasites ID Blood Type Antibody Screen Crossmatch 04/17/23 04/17/23 04/17/23 Range/Units 18:38 18:38 07:17 WBC 0.10 L* (4.8-10.8) K/ul RBC 1.52 L (4.20-5.40) M/uL Hgb 4.5 L* (12.0-16.0) g/dl Hct 12.9 L* (37.0-47.0) % MCV 84.9 (80.0-100.0) fL MCH 29.6 (25.0-34.0) pg MCHC 34.9 (32.0-36.0) g/dL RDW Std Deviation 42.2 (36.4-46.3) fL RDW Coeff of Karey 13.6 (11.5-14.5) % Plt Count 7 L* (130-400) K/uL MPV 9.8 (9.4-12.4) fL Immature Gran % (Auto) Cancelled Neut % (Auto) Cancelled Lymph % (Auto) Cancelled Mcdowell % (Auto) Cancelled Eos % (Auto) Cancelled Baso % (Auto) Cancelled Neut # (Auto) Cancelled Lymph # (Auto) Cancelled Mcdowell # (Auto) Cancelled Eos # (Auto) Cancelled Baso # (Auto) Cancelled Immature Gran # (Auto) Cancelled Neutrophils % (Manual) Cancelled Band Neutrophils % Cancelled Lymphocytes % (Manual) Cancelled Prolymphocyte % Cancelled Reactive Lymphs % (Man) Cancelled Monocytes % (Manual) Cancelled Eosinophils % (Manual) Cancelled Basophils % (Manual) Cancelled Metamyelocytes % (Man) Cancelled Myelocytes % (Man) Cancelled Promyelocytes % (Man) Cancelled Blast Cells % (Manual) Cancelled Plasma Cell % (Manual) Cancelled Other Cells % Cancelled Nucleated RBC % Cancelled Neutrophils # (Manual) Cancelled Band Neutrophils # Cancelled Total Absolute Neuts Cancelled Lymphocytes # (Manual) Cancelled Prolymphocyte # Cancelled Reactive Lymphs # Cancelled Total Abs Lymphocytes Cancelled Monocytes # (Manual) Cancelled Eosinophils # (Manual) Cancelled Basophils # (Manual) Cancelled Metamyelocytes # (Man) Cancelled Myelocytes # (Manual) Cancelled Promyelocytes # (Man) Cancelled Blast Cells # (Man) Cancelled Plasma Cell # (Manual) Cancelled Other Cells # Cancelled Nucleated RBCs # (Man) Cancelled Hypersegmented Neuts Cancelled Hyposegmented Neuts Cancelled Hypogranular Neuts Cancelled Large Granular Lymphs Cancelled # Lrg Granular Lymphs Cancelled Hairy Cells Cancelled Smudge Cells Cancelled Toxic Granulation Cancelled Toxic Vacuolation Cancelled Dohle Bodies Cancelled Tom Rods Cancelled Hypogranular Platelets Cancelled Giant Platelets Cancelled Platelet Satelliting Cancelled RBC Morphology Cancelled Polychromasia Cancelled Hypochromasia Cancelled Poikilocytosis Cancelled Basophilic Stippling Cancelled Anisocytosis Cancelled Microcytosis Cancelled Macrocytosis Cancelled Spherocytes Cancelled Pappenheimer Bodies Cancelled Sickle Cells Cancelled Target Cells Cancelled Tear Drop Cells Cancelled Ovalocytes Cancelled Stomatocytes Cancelled Saha-Moore Bodies Cancelled Echinocytes Cancelled Acanthocytes (Spur) Cancelled Rouleaux Cancelled RBC Agglutinates Cancelled Schistocytes Cancelled ESR (0-30) mm/hr Sezary Cell Cancelled PT INR APTT PTT Ratio Sodium 132 L (136-145) mmol/L Potassium 3.9 (3.5-5.1) mmol/L Chloride 105 (98-107) mmol/L Carbon Dioxide 22 (21-32) mmol/L Anion Gap 5 (3-11) BUN 21 (6-23) mg/dl Creatinine 0.68 (0.6-1.2) mg/dl Est Cr Clr Drug Dosing Not Reportable Est GFR ( Amer) 113.3 ml/min Est GFR (Non-Af Amer) 97.8 ml/min BUN/Creatinine Ratio 30.9 H (10-20) Glucose 149 H (70-99(Fasting)) mg/dl POC Glucose (70-99) mg/dl Estimat Average Glucose Hemoglobin A1c Calcium 8.0 L (8.6-10.3) mg/dl Magnesium Total Bilirubin 0.5 (0.2-1.0) mg/dl AST 5 L (13-39) U/L ALT 13 (7-52) U/L Alkaline Phosphatase 45 (34-104) U/L C-Reactive Protein 27.49 H (0-0.5) mg/dl Total Protein 5.4 L (6.0-8.3) gm/dl Albumin 2.8 L (3.4-5.0) gm/dl Globulin 2.6 (2.5-4.0) gm/dl Albumin/Globulin Ratio 1.1 (0.9-2) Procalcitonin (0-0.5) ng/ml SARS-CoV-2, RNA, NAAT (NEGATIVE) Blood Parasites ID Cancelled Blood Type O Negative Antibody Screen NEGATIVE Crossmatch See Detail Medications Administered Current Inpatient Medications Acetaminophen (Acetaminophen 325 Mg Tab) 650 mg PO Q4H PRN PRN Reason: Pain or Fever Stop: 07/28/22 22:55 Acyclovir (Acyclovir 400 Mg Tab) 400 mg PO BID SHAUNA Stop: 07/28/22 22:55 Last Admin: 06/29/22 08:34 Dose: 400 mg Calcium/Vitamin D (Calcium 600mg + Vit D 400 Iu Tab) 1 tab PO QAM SHAUNA Stop: 07/29/22 08:59 Last Admin: 06/29/22 08:33 Dose: 1 tab Dextrose (Dextrose 50% 50 Ml Syringe) 25 - 50 ml IV UD PRN; Protocol PRN Reason: Hypoglycemia Protocol Stop: 07/28/22 22:55 Gabapentin (Gabapentin 100 Mg Cap) 100 mg PO TID SHAUNA Stop: 07/28/22 22:55 Last Admin: 06/29/22 08:34 Dose: 100 mg Glucagon (Glucagon For Inj 1 Mg Vial) 1 mg SQ UD PRN; Protocol PRN Reason: Hypoglycemia Protocol Stop: 07/28/22 22:55 Glucose (Glucose 10 Tab/Tube) 4 - 8 tab PO UD PRN; Protocol PRN Reason: Hypoglycemia Treatment Stop: 07/28/22 22:55 Glucose (Glucose 40% Gel 15 Gm Tube) 15 - 30 gm PO UD PRN; Protocol PRN Reason: Hypoglycemia Protocol Stop: 07/28/22 22:55 Hydrocortisone Sodium (Succinate 100 mg/ Syringe) 2 mls @ 4 mls/min IV Q8H SHAUNA Stop: 07/29/22 05:59 Last Admin: 06/29/22 06:21 Dose: 4 mls/min Sodium Chloride (Nss 1000ml) 1,000 mls @ 100 mls/hr IV .Q10H SHAUNA Stop: 07/28/22 22:55 Last Infusion: 06/29/22 01:23 Dose: 0 mls/hr Cefepime HCl 2,000 mg/ Syringe 20 mls @ 5 mls/min IV Q8H [facility]; Protocol Stop: 07/13/22 03:59 Last Admin: 06/29/22 04:40 Dose: 5 mls/min Sodium Chloride (Nss) 250 mls @ 15 mls/hr IV .[id number] PRN PRN Reason: For Transfusion Duration Stop: 06/29/22 08:56 Vancomycin HCl 1,250 mg/ (Sodium Chloride) 275 mls @ 200 mls/hr IV Q12H [facility]; Protocol Stop: 07/13/22 05:59 Last Infusion: 06/29/22 08:06 Dose: Infused Insulin Aspart (Insulin Aspart Per Unit Charge) 0 units SC ACHS [facility] Stop: 07/28/22 22:55 Last Admin: 06/29/22 08:32 Dose: Not Given Levothyroxine Sodium (Levothyroxine Sodium 112 Mcg Tablet) 112 mcg PO DAILYBB [facility] Stop: 07/29/22 06:29 Last Admin: 06/29/22 06:21 Dose: 112 mcg Metoprolol Succinate (Metoprolol Succ 25mg Ext Rel Tab) 25 mg PO DAILY [facility] Stop: 07/29/22 08:59 Last Admin: 06/29/22 08:33 Dose: Not Given Miscellaneous (Order Awaiting Action: Exemestane 25 Mg Tablet) 1 each N/A QS [facility] Stop: 07/29/22 07:59 Last Admin: 06/29/22 08:05 Dose: Not Given Miscellaneous (Order Awaiting Action: Letermovir 480 Mg Tablet) 1 each N/A QS [facility] Stop: 07/29/22 07:59 Last Admin: 06/29/22 08:05 Dose: Not Given Miscellaneous (Order Awaiting Action: Posaconazole 100 Mg Tablet,Delayed Release (Dr/Ec)) 1 each N/A QS [facility] Stop: 07/29/22 07:59 Last Admin: 06/29/22 08:05 Dose: Not Given Miscellaneous (Carbohydrates For Hypoglycemia ) 15 - 30 gm PO UD PRN PRN Reason: Hypoglycemia Protocol Stop: 07/28/22 22:55 Miscellaneous Information (Vancomycin Consult Active) 1 each N/A UD PRN PRN Reason: Consult Stop: 07/28/22 18:28 Multivitamins (Multivitamin Tab) 1 tab PO DAILY [facility] Stop: 07/29/22 08:59 Last Admin: 06/29/22 08:33 Dose: 1 tab Nitroglycerin (Nitroglycerin Sl 0.4 Mg/Tab Tab) 0.4 mg SL Q5M PRN PRN Reason: Chest Pain Stop: 07/28/22 22:55 Ondansetron HCl (Ondansetron Inj 2 Mg/Ml 2 Ml Vial) 4 mg IV Q6H PRN PRN Reason: Nausea Stop: 07/28/22 22:55 Prochlorperazine (Prochlorperazine Maleate 10 Mg Tab) 10 mg PO Q6H PRN PRN Reason: Nausea And Vomiting Stop: 07/28/22 22:55 Trimethoprim/Sulfamethoxazole (Sulfamethoxazole/Trimethoprim Ds 800/160mg Tab) 1 tab PO TuThSa@0900,2100 SHAUNA Stop: 07/29/22 08:59 Last Admin: 06/29/22 08:33 Dose: 1 tab Ursodiol (Ursodiol 300 Mg Cap) 300 mg PO DAILY SHAUNA Stop: 07/29/22 08:59 Last Admin: 06/29/22 08:34 Dose: 300 mg Vitamin D (Cholecalciferol 5,000 Units 125 Mcg Tab) 5,000 units PO QAM SHAUNA Stop: 07/29/22 08:59 Last Admin: 06/29/22 08:33 Dose: 5,000 units
[2022-06-29] MEDS ORDERED: METOPROLOL SUCC 25MG EXT REL TAB PO SCH (09:00)
[2022-06-29] MEDS ORDERED: ursodioL 300 MG CAP PO SCH (09:00)
[2022-06-29] MEDS ORDERED: CHOLECALCIFEROL 5,000 UNITS 125 MCG TAB PO SCH (09:00)
[2022-06-29] MEDS ORDERED: MULTIVITAMIN TAB PO SCH (09:00)
[2022-06-29] MEDS ORDERED: CALCIUM 600MG + VIT D 400 IU TAB PO SCH (09:00)
[2022-06-29 09:02] LABS: Hemoglobin 7.5 g/dl (12.0-16.0); Mean Corpuscular Hemoglobin 29.1 pg (25.0-34.0); Mean Corpuscular Hgb Conc 35.7 g/dL (32.0-36.0); Mean Corpuscular Volume 81.4 fL (80.0-100.0); Platelet Count 9 K/uL (130-400); RDW Coefficient of Variation 13.6 % (11.5-14.5); RDW Standard Deviation 41.3 fL (36.4-46.3); Red Blood Count 2.58 M/uL (4.20-5.40); White Blood Count 0.11 K/ul (4.8-10.8)
[2022-06-29 09:07] LABS: BUN Creatinine Ratio 34.7 (10-20); Calcium 7.8 mg/dl (8.6-10.3); Creatinine Clr Calc Pharmacy 140.7 ml/min; Est GFR (African American) 126.2 ml/min; Est GFR (Non-African American) 108.9 ml/min; Magnesium 1.7 mg/dl (1.7-2.4); Potassium 3.7 mmol/L (3.5-5.1)
[2022-06-29 09:24] LABS: Estimated Average Glucose 137 mg/dl; Hemoglobin A1C 6.4 % (4.5-5.6)
[2022-06-29 09:32] LABS: INR 1.5 (0.9-1.1); Partial Thromboplastin Ratio 1.3; Partial Thromboplastin Time 35.3 Seconds (21.0-31.0); Platelet Estimate Signific. Decreased (Normal); Prothrombin Time 16.1 Seconds (9.0-12.0)
--- NOTE | 2022-06-29 10:47 | Pharmacy Report ---
Pharmacy PK ABX Note - Date of Service June 29, 2022 - Assessment and Plan Assessment 57 year old F started on vancomycin and cefepime for bacteremia. Had been seen in ER yesterday for weakness/pancytopenia. Previously admitted to [facility] for ongoing fever, concerns for possible MDS or graft vs host disease per notes. She recently had her IV line replaced. She has hx of breast cancer s/p bilateral mastectomy, s/p chemo, s/p stem cell tx. Last chemo session was about ~1 month ago. Prelim blood cultures showing micrococcus with repeat cultures pending. ID consulted Day # 2 of antimicrobial therapy. Plan Vancomycin * Patient received loading dose of vancomycin 2000 mg x 1 last evening and was started on maintenance dose of vancomycin 1250 mg iv q 12 hrs * Current dosing is estimated to achieve a trough level of ~13 mcg/ml, AUC/JAS of 400-600 and is associated with 8% risk of toxicity * Will plan to get vancomycin random level later this afternoon to assess dosing and to ensure level therapeutic Pharmacy will continue to follow and will adjust dose/frequency as necessary. Thank you. Pharmacy has transitioned to AUC monitoring for vancomycin. AUC/JAS is the preferred PK/PD target and is associated with decreased risk of nephrotoxicity compared to traditional trough targets.
--- NOTE | 2022-06-29 10:54 | Communication Note ---
Date of Service: June 29, 2022 Placed on iv hydrocortisone as patient on prednisone 20mg daily currently.
--- NOTE | 2022-06-29 10:54 | Electrocardiogram Report ---
Test Reason : Blood Pressure : / mmHG Vent. Rate : 064 BPM Atrial Rate : 064 BPM P-R Int : 150 ms QRS Dur : 088 ms QT Int : 432 ms P-R-T Axes : -01 004 015 degrees QTc Int : 445 ms Normal sinus rhythm Normal ECG When compared with ECG of 06-APR-2022 20:04, Vent. rate has decreased BY 40 BPM Confirmed by Aramis Fountain ([id number]) on 06/29/2022 10:54:17 AM Referred By: REFERRED SELF Confirmed By:Irvin Fountain
[2022-06-29] MEDS ORDERED: Nursing to Pharmacy Communication SCH (11:15)
[2022-06-29] MEDS: SODIUM CHLORIDE 0.9% 1000ML 1,000 ML IV SCH ×2 (11:18→20:57)
--- NOTE | 2022-06-29 11:42 | Communication Note ---
Date of Service: June 29, 2022 Patient was placed on Flagyl at [place] for clostridium infection.
[2022-06-29] MEDS: metroNIDAZOLE 500 MG TAB PO SCH ×2 (13:58→20:30)
[2022-06-29] MEDS ORDERED: SODIUM CHLORIDE 0.9% 250 ML IV PRN (15:25)
[2022-06-29] MEDS ORDERED: VANCOMYCIN HCL 1,500 MG in SODIUM CHLORIDE 0.9% 500 ML IV SCH (16:00)
[2022-06-29 16:34] LABS: Hematocrit (blood only) 23.7 % (37.0-47.0); Hemoglobin 8.5 g/dl (12.0-16.0); Mean Corpuscular Hemoglobin 29.5 pg (25.0-34.0); Mean Corpuscular Hgb Conc 35.9 g/dL (32.0-36.0); Mean Corpuscular Volume 82.3 fL (80.0-100.0); Mean Platelet Volume 9.6 fL (9.4-12.4); Platelet Count 9 K/uL (130-400); RDW Coefficient of Variation 13.7 % (11.5-14.5); RDW Standard Deviation 41.3 fL (36.4-46.3); Red Blood Count 2.88 M/uL (4.20-5.40); White Blood Count 0.12 K/ul (4.8-10.8)
[2022-06-29 18:24] VITALS: O2SAT 98
[2022-06-29 23:58] VITALS: BP 95/61; PULSE 68; TEMP 97.9
--- NOTE | 2022-06-30 20:04 | Discharge Summary ---
Date of Service June 29, 2022 Admission HPI Per Admitting Provider This is a 57-year-old female with past medical history significant for breast cancer, status post bilateral mastectomy in 2017, status post chemo, history of ovarian cancer, status post total abdominal hysterectomy and bilateral salpingo- oophorectomy in 2017 and also status post chemo, BRCA positive, hypothyroidism, history of MDS, status post stem cell transplant in 10/2021 at [facility] and she says her last chemo was about a month ago, history of COVID. She was here in the hospital in the ER last night because of feeling weak and for any requirement of blood transfusion, but she was discharged home as she was fine and was called back today because of bacteremia. She had some temperature yesterday. The patient says she was recently in the [facility] for 1 month for fever, could not figure out why she had a fever. Thought it could be from the MDS or [id number] disease, and she was just discharged 5 days ago from [place] after 1 month's stay and she had a new line placed 5 days ago before discharge as per patient.. Currently, when she came in, she was somewhat hypotensive, blood pressure was in the 70s and 90s, improved with fluids. Resting comfortably. Denies any other complaints. Denies any cough. Denies any fever currently, no chest pain, no shortness of breath, no nausea, no abdominal pain, no headache, no blurred visions, no earache, no runny nose, no sore throat. She has some epistaxis, but that has stopped now. No blood in stools or black stools. No hematuria. Normal bowel and bladder movements. No swelling in the legs. Currently living with her parents. Ambulates okay at home. In the ER, labs showed a WBC of 0.1, hemoglobin 4.5, platelets 7. C- reactive protein of 27. Procalcitonin 2.18. COVID negative. Admission Exam Per Admitting Provider GENERAL: The patient is of moderate build, not in acute distress. VITAL SIGNS: Temperature 36.8, pulse 76, respiratory rate 22, blood pressure 107/55, oxygen 100% on room air. HEENT: Pupils equal, round and reactive to light. Pallor present. No icterus. Oral mucosa moist. NECK: No JVD, no neck masses. CARDIOVASCULAR: S1 and S2 heard. Regular rate and rhythm. No murmur, no gallop. RESPIRATORY SYSTEM: Normal AP diameter. No accessory muscle use. No wheezing or crackles. ABDOMEN: Soft, bowel sounds present, nontender, no distention. CENTRAL NERVOUS SYSTEM: Cranial nerves II-XII grossly intact, nonfocal. EXTREMITIES: No edema, no erythema. Principal Diagnosis Neutropenic fever Pancytopenia Bacteremia Myelodysplastic syndrome History of allogeneic stem cell transplant Discharge Exam GENERAL: The patient is of moderate build, not in acute distress. HEENT: Pupils equal, round and reactive to light. Pallor present. No icterus. Oral mucosa moist. NECK: No JVD, no neck masses. CARDIOVASCULAR: S1 and S2 heard. Regular rate and rhythm. No murmur, no gallop. RESPIRATORY: Normal AP diameter. No accessory muscle use. No wheezing or crackles. ABDOMEN: Soft, bowel sounds present, nontender, no distention. NEURO:awake, alert, oriented, answering appropriately, speech fluent, moves extremities EXTREMITIES: No edema, no erythema. Discharge Data Allergies Allergy/AdvReac Type Severity Reaction Status Date / Time No Known Allergies Allergy Verified 06/27/22 19:11 Consultations 06/28/22 19:21 ED Decision to Admit Stat 06/28/22 22:56 Consult Infectious Diseases Routine 06/29/22 08:00 Consult Hematology Routine Hospital Course (1) Neutropenic fever: (2) Bacteremia: (3) MDS (myelodysplastic syndrome): This is a 57-year-old female who came to ER for weakness and was discharged from ER, now called in because of bacteremia and also found to have pancytopenia. Neutropenic fever. 1. Bacteremia with gram-positive cocci. Cultx positive for Micrococcus. Follow the final cultures. The patient was recently in the [facility] for fever, and she recently had a line replaced about 5-6 days ago, some erythema at the line, but there is no drainage. (Records from [facility] not available for review at this time) Empirically started on vancomycin and cefepime.Follow the cultures.Infectious disease consult placed. IV fluids. Closely monitor in the telemetry floor. Initially hypotensive then BP improved. We will monitor the hemodynamics. 2. Pancytopenia. The patient has myelodysplastic syndrome, status post stem cell transplant in 10/2021 in [facility], last chemotherapy was about a month ago as per patient. Pt gets frequent platelet and blood transfusions. On admission hemoglobin is 4.5, platelets 7, WBC 0.1. neutropenic precautions Pt received 3 units of irradiated blood and 1 unit of platelets on admission. Pt was then transfused additional 1 unit of plt today.. Consulted hematology/oncology - discussed in detail w/ Dr. Bae (who discussed with pt's primary oncologist at [place]) and recommend transfer to [facility]. I contacted [facility] transfer center and pt was accepted for transfer to their care. 3. Hyponatremia with a sodium of 132. Getting fluids. Follow the repeat laboratories. 4. History of breast cancer, status post bilateral mastectomy in 2017, status post chemotherapy. 5. History of ovarian cancer, status post total abdominal hysterectomy with bilateral salpingo-oophorectomy in 2017, status post chemotherapy. 6. Diabetes. Hold Jardiance. Insulin sliding scale. Follow the blood sugars. 7. Hypothyroidism, on Synthroid. DVT prophylaxis, SCDs for now. The patient has thrombocytopenia. DISPOSITION: Closely monitor in the tele.Plan to transfer to [facility] when bed available. Total Time Total Time Spent Total Time Spent (In Minutes): 40 Discharge Plan Discharge Items Patient Disposition: Transfer Acute Care Hospital Reason For Visit: BACTEREMIA Discharge Diagnosis: Neutropenic fever Pancytopenia Bacteremia Myelodysplastic syndrome History of allogeneic stem cell transplant Activity: Per Instructions section Non-emergency contact: Specialist and Oncologist Call non-emergency contact if: you have any medication questions and your symptoms worsen Follow-up/Referrals: Marisela Shoemaker PA-C [Primary Care Provider] - Diet: Carb Count or DM1 Addtl Attending Provider Instructions: Patient with history of myelodysplastic syndrome, status post allogenic stem cell transplant, now presents with neutropenic fever, bacteremia, pancytopenia. Status post pRBC transfusion and platelet transfusion. Blood culture positive for micrococcus. Started empirically on IV vancomycin and cefepime. Patient to be transferred to [facility], for further evaluation and care. Addtl Paunch Trimmer Provider Instructions: on iv cefepime iv vancomycin iv hydrocortisone for stress dose Pending Studies at Discharge: Yes Studies:: Final blood culture results Stand-Alone Forms: My [facility] Skilled Items Patient informed of condition?: Yes DNR: No Discharge Level of Care: Other Communicable Disease: No Discharge Prognosis: Other Lines: Peripheral IV Urinary Catheter: No Medications and DC Order Prescriptions: Continued acyclovir 400 mg tablet 400 mg PO BID calcium carbonate 500 mg calcium (1,250 mg) tablet,chewable 500 mg PO TID PRN (Reason: unknown) Jardiance 10 mg tablet 10 mg PO DAILY letermovir 480 mg tablet 480 mg PO DAILY multivitamin Tablet 1 tab PO DAILY posaconazole 100 mg tablet,delayed release (DR/EC) 300 mg PO QAM metoprolol succinate 25 mg Tablet Extended Release 24 Hr 25 mg PO DAILY Patient Comments: holds for HR below 60 sulfamethoxazole-trimethoprim [Bactrim DS] 800-160 mg Tablet 1 tab PO DAILY Rx Instructions: three times a week. tranexamic acid 650 mg Tablet 650 mg PO TID PRN (Reason: Bleeding) Rx Instructions: as needed for nosebleeds when platelets are low ondansetron HCl 8 mg tablet 8 mg PO Q6H PRN (Reason: Nausea And Vomiting) prochlorperazine maleate 10 mg tablet 10 mg PO Q6H PRN (Reason: Nausea And Vomiting) calcium carbonate-vitamin D3 [Calcium 600 + D(3)] 600 mg-5 mcg (200 unit) Tablet 1 tab PO QAM exemestane 25 mg tablet 25 mg PO QAM levothyroxine 112 mcg tablet 112 mcg PO DAILYBB cholecalciferol (vitamin D3) [Vitamin D3] 125 mcg (5,000 unit) Tablet 125 mcg PO QAM gabapentin 100 mg capsule 100 mg PO TID metronidazole 500 mg tablet 500 mg PO TID prednisone 10 mg tablet 10 mg PO UD ursodiol 300 mg capsule 300 mg PO DAILY Discharge Orders: Discharge Order (Routine); Ordered 06/29/22 Ordered By: Fredi Santoro/Other Patient Handouts: Managing Type 2 Diabetes Admission Data Admit Date/Time: 06/28/22 20:55 Attending Provider: Pelon Abad Admit Provider: Fredi Esqueda Primary Care Provider: Marisela Shoemaker Other Providers: Fredi Esqueda ; Zoltan Macias ; Siddharth Leblanc ; Cecilio Chowdhury I. ; Roger Mccracken II ; Suma Carroll ; Meet Walker ; Jose Alberto Jackson ; Konrad Elias ; Ashley Bae Other Interventions: Discharge Summary Assessment (RN) Last Done: 06/30/22 00:01
== END 2022-06-30 00:30 | disposition short-term general hospital (02) | DRG 872 ==
LOC: ED 17:32 → 4W 20:55